=== PATIENT | female | born 2000 | race Caucasian/White ===

== ENCOUNTER 2024-09-29 09:09 | Outpatient (CLI) | payer OTHER, SELFPAY ==
[2024-09-29 10:07] LABS: Beta HCG Quantitative 83.46 mIU/ML
== END 2024-09-29 09:10 | disposition home or self-care (01) ==
LOC: ANHLAB 09:11
PROVIDERS: PCP Nurse Practitioner Family; Visit Provider Student in an Organized Health Care Education/Training Program
DX: N91.2 Amenorrhea, unspecified (principal)
CPT/HCPCS: 36415; 84702

== ENCOUNTER 2024-10-04 07:18 | Outpatient (CLI) | payer OTHER, SELFPAY ==
--- NOTE | ~2024-10-04 | US_ITS ---
EXAM: PELVIC ULTRASOUND HISTORY: Z98.890 - Other specified postprocedural states COMPARISON: None FINDINGS: UTERUS: 8.2 x 3.9 x 6.6 cm. The uterus is anteverted and anteflexed. The endometrial complex measures 7 mm. To the right of midline the endometrial complex appears hypoechoic and avascular. RIGHT OVARY: The right ovary is unremarkable in echogenicity and size measuring 5.6 x 5.7 x 5.3 cm. Arterial and venous flow are identified. A single anechoic avascular focus is identified distending the right ovary measuring 5.0 x 5.2 x 4.6 cm, representing a simple cyst without morphologically suspicious findings. Trace surrounding free fluid within the right adnexa is noted. LEFT OVARY: Despite prolonged interrogation, the left ovary was not visualized. No free fluid is identified within the posterior cul-de-sac. IMPRESSION: Avascular irregular area of decreased echogenicity is identified to the right of midline within the e ndometrial complex. Simple cyst within the right ovary measuring 5.2 cm in greatest dimension for which follow-up as deta iled below is suggested. SRU consensus guidelines (Radiology 2019; 293; 359 - 371) suggest follow-up of cysts this size (betwe en 5 and 7 cm) is recommended to assess growth within 6-12 months. If this cyst is smaller and still simple at 6-12 months, continued follow-up is unlikely to be of value. Reviewed, dictated and finalized at location A. LINE WORKER IMPRESSION: Avascular irregular area of decreased echogenicity is identified to the right o f midline within the endometrial complex. Simple cyst within the right ovary measuring 5.2 cm in greatest dimension for w hich follow-up as detailed below is suggested. SRU consensus guidelines (Radiology 2019; 293; 359 - 371) suggest follow-up of cysts this size (between 5 and 7 cm) is recommended to assess growth within 6-1 2 months. If this cyst is smaller and still simple at 6-12 months, continued follow-up is unlikely to be of value.
== END 2024-10-04 07:19 | disposition home or self-care (01) ==
LOC: MICIMG 07:19
PROVIDERS: PCP Student in an Organized Health Care Education/Training Program; Visit Provider Student in an Organized Health Care Education/Training Program
DX: Z98.890 Other specified postprocedural states (principal); N83.201 Unspecified ovarian cyst, right side
CPT/HCPCS: 76830; 76856

== ENCOUNTER 2024-10-07 11:12 | Outpatient (CLI) | payer OTHER, SELFPAY ==
[2024-10-07 11:28] LABS: Hematocrit 42.8 % (37.0-47.0); Hemoglobin 14.9 g/dL (12.0-15.0)
[2024-10-07 12:06] LABS: Beta HCG Quantitative 24.38 mIU/ML
--- OUTSIDE RECORDS SUMMARY | 2024-10-14 11:31 | XMS_ITS | Encounter Summary ---
Author Organization [facility] Address [address] [place] [address]. [place], [place] [address] [place] [address] Care Team Providers Care Narcotics Agent Name Role Phone Magaly Ribeiro MICROBIOLOGY SOIL SCIENTIST Primary Care Provider [phone] Reason for Referral * Imaging (Urgent) - New Request Specialty Diagnoses / Procedures Referred By Giovanni echavarria Referred To Contact RADIOLOGY Procedures US GD INTRAOPERATIVE Neelima Fox MD [address] [place] [address] Phone: tel: fax: Referral ID Status Reason Start Date Expiration Date V isits Requested Visits Authorized [id number] New Request 09/12/2024 09/12/2025 1 1 CTOR MBA Reason for Visit * Auth/Cert (Routine) Specialty Diagnoses / Procedures Referred By Giovanni echavarria Referred To Contact Diagnoses O02.1 Procedures Suction Dilatation and Curettage; Transvaginal Ultrasound Neelima Fox MD [address] [place] [address] Phone: tel: fax: Referral ID Status Reason Start Date Expiration Date Visits Re quested Visits Authorized [id number] 1 1 Encounter Details Date Type Department Care Team (Latest Contact Info) Description 09/12/2024 9:58 AM DIRECTOR MBA - 09/12/2024 12:50 PM DIRECTOR MBA Hospital Encounter [facility] [address] [place] [address] Neelima Fox MD [address] [place] [address] Discharge Disposition: Home or Self Care (Routine Discharge) Social History Tobacco Use Types Packs/Day Years Used Date Smoking Tobacco: Never Smokeless Tobacco: Never Alcohol Use Standard Drinks/Week Comments Yes 0 (1 standard drink = 0.6 oz pur e alcohol) Comments No Sex and Gender Information Value Date Recorded Sex Assigned at Not on file Legal Sex Female 7:04 PM CDT Gender Identity Not on file Sexual Orientation Not on file documented as of this encounter Last Filed Vital Signs Vital Sign Reading Time Taken Comments Blood Pressure 117/79 09/12/2024 12:00 PM DIRECTOR MBA Pulse 100 09/12/2024 12:05 PM DIRECTOR MBA Temperature 36.3 ??C (97.4 ??F) 09/12/2024 11:[address] Respiratory Rate 16 09/12/2024 12:05 PM DIRECTOR MBA Oxygen Saturation 100% 09/12/2024 12:05 PM DIRECTOR MBA Inhaled Oxygen Concentration - - Weight 74.4 kg (164 lb) 09/12/2024 10:14 AM DIRECTOR MBA Height 177.8 cm (5' 10 ) 09/12/2024 10:14 AM DIRECTOR MBA Body Mass Index 23.53 09/12/2024 10:14 AM DIRECTOR MBA documented in this encounter Discharge Instructions * Attachments The following attachments cannot be sent through Care Everywhere. * Miscarriage Discharge Instructions (Iranian) * Moderate Sedation in Adults Discharge Instructions (Iranian) documented in this encounter Medications at Time of Discharge ciprofloxacin (CILOXAN) 0.3 % ophthalmic solutionIndications :Conjunctivitis of left eye, unspecified conjunctivitis type Administer 1 drop, every 2 hours, while awake, for 2 days. Then 1 drop, every 4 hours, while awake, for the next 5 days. 5 mL 11/02/2023 FAMOTIDINE 20 MG tabletIndications:E pigastric pain TAKE 1 TABLET BY MOUTH TWICE A DAY 180 tablet 05/02/2021 levonorgestrel-ethi nyl estradiol (SEASONALE) 0.15-0.03 MG tablet Take 1 tablet by mouth daily. 05/14/2023 methylPREDNISolone, KM, (MEDROL DOSEPAK) 4 MG tabletIndications:B acterial URI 6 TABLETS ON DAY ONE, 5 TABLETS DAY TWO, 4 TABLETS DAY THREE, 3 TABLETS DAY FOUR, 2 TABLETS DAY FIVE, AND 1 TABLET DAY SIX 1 each 11/02/2023 documented as of this encounter H&P Notes * Neelima Fox MD - 09/12/2024 10:48 AM CST See soga paper HNP -bmg CTOR MBA documented in this encounter OR Notes * Op Note - Neelima Fox MD - 09/12/2024 11:30 AM CST Procedure Note Evelyn Billings Cecille 09/12/2024 Procedure: suction curettage and TVUS for missed . Pre-Op Diagnosis: missed . Post-Op Diagnosis: same Findings: empty uterus on postop TVUS, see photo, ems <4mm Specimen(s) Removed: intrauterine contents Anesthesia: Don, mac Surgeon: michel Digital Media Associate: x Estimated Blood Loss: <30cc Timeouts Jamaica Arredondo RN at SunSep 12, 2024 1112 DIRECTOR MBA Timeout Details Timeout type: Pre-incision Signing History Staff Performed Signed [place] Arredondo RN SunSep 12, 2024 1112 DIRECTOR MBA SunSep 12, 2024 1112 DIRECTOR MBA NEELIMA FOX MD Date: 09/12/2024 Time: 11:30 AM After informed consent was obtained, patient was taken to the operating room. Anesthesia was found to be adequate. She was prepped and draped in the normal sterile fashion in the dorsal lithotomy w candycanes. Speculum to vagina, iodine prep, tenac ant cervix, local at 12 4 and 8oclock, gentle hanks dilation. 8 curved curette to fundus without difficulty and large amt tissue removed, TVUS w assist of hospital tech revealed empty uterus ems <4mm. Tenac removed, sites hemostatic w pressure andAgNO3. Counts correct w team and pt robert procedure well. I dw postop -bmg CTOR MBA documented in this encounter Plan of Treatment Pending Results Name Type Priority Associated Diagnoses Date /Time US GD INTRAOPERATIVE Ultrasound Today 08/31 11:37 AM DIRECTOR MBA Scheduled Orders Name Type Priority Associated Diagnoses Orde r Schedule US GD INTRAOPERATIVE Ultrasound Today One time imaging One time imaging for 1 Occurrences starting 09/12/2024 until 09/12/2024 documented as of this encounter Procedures Procedure Name Priority Date/Time Associated Diagnosis Comments DILATATION & CURETTAGE SUCTION 09/12/2024 10:49 AM DIRECTOR MBA O02.1 Case Notes Needs transvaginal ultrasound.Radiology notified. Eloina will call back when she knows if they have a tech. -SRC 09/10 1438Spoke to Arianna with US and she says 1030 will probably work if they can move another patient's time. -SRC 09/10 1500Spoke with Mara in Radiology. Mara said they could have the ultrasound ready around 11-CD 09/11 1000. PATHOLOGY Routine 09/12/2024 12:00 AM DIRECTOR MBA documented in this encounter Results * Pathology (09/12/2024 12:00 AM DIRECTOR MBA) PATHOLOGY [facility] ? Department of Laboratory Medicine ?[address] ?[place] [address] ? , extension [phone] ? Pathology Report ? Surgical Pathology Report Name: EVELYN SMITH ? Specimen #: [id number] Age: 11 2000 (Age: 24) ?Location: [facility] Sex: F ?Procedure Date: 09/12/2024 Hospital #: [id number] ?Date Received: 09/15/2024 Date Reported: 09/16/2024 Provider: NEELIMA FOX MD Source: Products of conception Clinical History: O02.1. FINAL DIAGNOSIS: Proximal conception, dilatation curettage: ? -Chorionic villi identified. Gross Description: Received in formalin, labeled with a patient label and as uterine contents, are multiple friable, soft to rubbery, focally membranous, altman to red-pink tissue fragments that aggregate 5.0 x 4.0 x 1.8 cm. ?? parts are not identified. ??Manufacturing Recruiter sections are submitted in cassette 1. Please note: The remaining specimen is returned to the collecting facility following microscopic examination. Gross examination (when applicable), interpretation, and sign out were performed at [facility], [address] [place] [address]. ?? Electronically Signed Out ? NASRIN JENKINS MD [facility] TISSUE (OTHER (type in comments)) 09/12/2024 11:22 AM DIRECTOR MBA us Neelima Fox MD PATHOLOGY/CYTOLOGY ORDERABLES Final Result [facility] [address] [place] [address], [place] [phone] [id number] documented in this encounter Visit Diagnoses Not on filedocumented in this encounter Administered Medications Inactive Administered Medications - up to 3 most recent administrations Medication Order MAR Action Action Date Dose Rate Site doxycycline hyclate (VIBRA-TABS) tablet 100 mg 100 mg, Oral, Once, 1 dose, On Sun09/12/24 at 1030 Given 09/12/2024 10:29 AM DIRECTOR MBA 100 mg famotidine (PF) (PEPCID) injection 20 mg 20 mg, Intravenous, Once, 1 dose, On Sun09/12/24 at 1045, On admission IV Push over 2 minutes, Pre-Op Given 09/12/2024 10:29 AM DIRECTOR MBA 20 mg ondansetron (ZOFRAN) injection 4 mg 4 mg, Intravenous, Once, 1 dose, On Sun09/12/24 at 1030, On admission, Pre-Op Given 09/12/2024 10:29 AM DIRECTOR MBA 4 mg oxyCODONE-acetaminophen (PERCOCET) 5-325 MG tablet 1 tablet 1 tablet, Oral, Once as needed, Mild pain (Scale 1 - 3), 1 dose, Starting on Sun09/12/24 at 1148, Until Sun09/12/24 at 1203, Do not administer if patient is overly sedated, SpO2 LESS than 90%, or Respiratory Rate LESS than 12., PACU Given 09/12/2024 12:03 PM DIRECTOR MBA 1 tablet sodium chloride 0.9% infusion at 10 mL/hr, Intravenous, Continuous, Starting on Sun09/12/24 at 1030, Until Sun09/12/24 at 1505, Infuse at TKO rate. Use mini-drip tubing for ESRD patients., Pre-Op Continued by Anesthesia 09/12/2024 10:52 AM DIRECTOR MBA 10 mL/hr New Bag 09/12/2024 10:29 AM DIRECTOR MBA 10 mL/hr documented in this encounter Active and Recently Administered Medications Times are shown in DIRECTOR MBA. Scheduled Medication Order 09/10/2024 09/11/2024 09/12/2024 doxycycline hyclate (VIBRA-TABS) tablet 100 mg (COMPLETED) 100 mg, Oral, Once, 1 dose, On Sun09/12/24 at 1030 1029 (Given - Provid er: Keila Bradley RN) doxycycline hyclate (VIBRA-TABS) tablet 200 mg 200 mg, Oral, Once, 1 dose, On Sun09/12/24 at 1145 1145 (Canceled Entry - Provider: Automatic Discharge Provider - Comment: Automatically canceled at discontinue of medication order) famotidine (PF) (PEPCID) injection 20 mg (COMPLETED) 20 mg, Intravenous, Once, 1 dose, On Sun09/12/24 at 1045, On admission IV Push over 2 minutes, Pre-Op 1029 (Given - Provid er: Keila Bradley RN) ondansetron (ZOFRAN) injection 4 mg (COMPLETED) 4 mg, Intravenous, Once, 1 dose, On Sun09/12/24 at 1030, On admission, Pre-Op 1029 (Given - Provid er: Keila Bradley RN) Continuous Medication Order 09/10/2024 09/11/2024 09/12/2024 sodium chloride 0.9% infusion at 10 mL/hr, Intravenous, Continuous, Starting on Sun09/12/24 at 1030, Until Sun09/12/24 at 1505, Infuse at TKO rate. Use mini-drip tubing for ESRD patients., Pre-Op 1029 (New Bag - Prov ider: Keila Bradley RN)1052 (Continued by Anesthesia - Provider: Karri Grande CRNA)1130 (Anesthesia Volume Adjustment - Provider: Karri Grande CRNA)1230 (Infusion Stop Time - Provider: Keila Bradley, LEW) PRN Medication Order 09/10/2024 09/11/2024 09/12/2024 lidocaine-EPINEPHrine 1 %-1:[id number] injection (CANCELED) As needed, Starting on Sun09/12/24 at 1128, Until Sun09/12/24 at 1134, Intra-Op 1128 (Given - Provid er: Neelima Fox MD) oxyCODONE-acetaminophen (PERCOCET) 5-325 MG tablet 1 tablet (COMPLETED) 1 tablet, Oral, Once as needed, Mild pain (Scale 1 - 3), 1 dose, Starting on Sun09/12/24 at 1148, Until Sun09/12/24 at 1203, Do not administer if patient is overly sedated, SpO2 LESS than 90%, or Respiratory Rate LESS than 12., PACU 1203 (Given - Provid er: [place] Arredondo RN) silver-potassium nitrate applicator (CANCELED) As needed, Starting on Sun09/12/24 at 1130, Until Sun09/12/24 at 1134, Intra-Op 1130 (Given - Provid er: Neelima Fox MD) documented in this encounter Care Teams Narcotics Agent Relationship Specialty Start Date End Date Magaly Ribeiro FNP [address] [place] [address] [place] [address] PCP - General Nurse Practitioner Family 05/09/16 documented as of this encounter
--- OUTSIDE RECORDS SUMMARY | 2024-10-14 11:31 | XMS_ITS | Encounter Summary ---
Author Organization [facility] Address [address] [place] [address]. [place] [address] [place] [address] Care Team Providers Care Coffee Shop Attendant Name Role Phone Magaly Ribeiro [facility] Primary Care Provider [phone] Encounter Details Date Type Department Care Team (Late st Contact Info) Description 09/04/2024 Orders Only [facility] [address] [place] [address] Giuliana Madden, [facility] [address] [place] [address] Social History Tobacco Use Types Packs/Day Years [...] on file documented as of this encounter Plan of Treatment Not on file documented as of this encounter Results * PROGESTERONE (09/04/2024 3:40 PM WAREHOUSE SORTER) PROGESTERONE 12.8 see note ng/mL 09/10/2024 12:22 PM WAREHOUSE SORTER [facility] MARIA ISABEL DIAS Comment: Unable to flag abnormal result(s), please refer ?? to reference range(s) below: ?? Female: ?? Follicular Phase ?<1.0 ng/mL ?? Luteal Phase ?2.6 - 21.5 ng/mL ?? Post Menopausal ? <0.5 ng/mL ?? : ?? 1st Trimester ? 4.1 - 34.0 ng/mL ?? 2nd Trimester ?24.0 - 76.0 ng/mL ?? 3rd Trimester ?52.0 -302.0 ng/mL Test Performed by Abhilash Akhtar, VB Rags [facility], [address] [place], [place] Arnold Hercules M.D., Ph.D., Director of Laboratories , [facility] [id number] 09/04/2024 3:40 PM WAREHOUSE SORTER Giuliana Madden [facility] Final Result Performing Organization Address City/State/[facility] Co de Phone Number [facility] [address] [place], [place] , * HCG QUANT (SERUM)-CHORIONIC GONADOTROPIN (09/04/2024 3:40 PM WAREHOUSE SORTER) [facility] HCG QUANTITATIVE [phone] MIU/ML 09/04/20 5:31 PM WAREHOUSE SORTER [facility] Comment: WEEKS OF ? REFERENCE RANGES NON- FEMALE ?0-6 ? 0.2 - 1 ? 5 - 50 ? 1 - 2 ? 50 - 500 ? 2 - 3 ? 100 - 5000 ? 3 - 4 ? 500 - 10,000 ? 4 - 5 ? 1000 - 50,000 ? 5 - 6 ? 10,000 - 100,000 ? 6 - 8 ? 15,000 - 200,000 ? 2 - 3 MONTHS ?10,000 - 100,000 09/04/2024 3:40 PM WAREHOUSE SORTER Giuliana [facility] Final Result [facility] [address] [place] [address], documented in this encounter Visit Diagnoses Diagnosis Threatened ([facility])- Primary Threatened , unspecified as to episode of care documented in this encounter Care Teams Coffee Shop Attendant Relationship Specialty Start Date End Date Magaly Ribeiro FNP [address] [place] [address] [place] [address] PCP - General Nurse Practitioner Family 05/09/16 documented as of this encounter
--- OUTSIDE RECORDS SUMMARY | 2024-10-14 11:31 | XMS_ITS | Encounter Summary ---
Author Organization [facility] Address [address] [place] [address]. [place] [address] [place] [address] Care Team Providers Care Cooker Sulfate Name Role Phone Magaly Ribeiro CABLE TELEVISION INSTALLER Primary Care Provider [phone] Reason for Visit * Auth/Cert (Routine) Specialty Diagnoses / Procedures Referred By Giovanni t Referred To Contact Diagnoses O02.1 Procedures Suction Dilatation and Curettage; Transvaginal Ultrasound Neelima Fox MD [address] [place] [address] Phone: tel: fax: Referral ID Status Reason Start Date Expiration Date Visits Re quested Visits Authorized [id number] 1 1 Encounter Details Date Type Department Care Team (Late st Contact Info) Description 09/12/2024 10:45 AM EMAIL MARKETING ASSISTANT - 09/12/2024 11:23 AM EMAIL MARKETING ASSISTANT Surgery [facility] [address] [place] [address] Neelima Fox MD [address] [place] [address] Suction Dilatation and Curettage; Transvaginal Ultrasound Surgery Details Date/Time Status Location OR Service Patient Class Case Class Case Type Trauma Case? 09/12/2024 10:45 AM Posted [facility] OR OR 1 Gynecology Short Stay/Outpati ent Surgery No Panel 1 Procedure LRB Anes Op Region Wound Class Comments Suction Dilatation and Curet tage; Transvaginal Ultrasound N/A Choice Uterus Clean Contaminate d Surgeon Surgeon Role Service Panel Neelima Fox MD Primary Gynecology 1 Case Notes Needs transvaginal ultrasound.Radiology notified. Eloina will call back when she knows if they have a tech. -[facility] 09/10 1438Spoke to Arianna with US and she says 1030 will probably work if they can move another patient's time. -[facility] 09/10 1500Spoke with Mara in Radiology. Mara said they could have the ultrasound ready around 11-CD 09/11 1000. documented in this encounter Social History Tobacco Use Types Packs/Day Years [...] Sign Reading Time Taken Comments Blood Pressure 135/98 09/12/2024 10:14 AM EMAIL MARKETING ASSISTANT Pulse 100 09/12/2024 10:14 AM EMAIL MARKETING ASSISTANT Temperature 36.7 ??C (98.1 ??F) 09/12/2024 10:[address] Respiratory Rate 16 09/12/2024 10:14 AM EMAIL MARKETING ASSISTANT Oxygen Saturation 100% 09/12/2024 10:14 AM EMAIL MARKETING ASSISTANT Inhaled Oxygen Concentration - - Weight 74.4 kg (164 lb) 09/12/2024 10:14 AM EMAIL MARKETING ASSISTANT Height 177.8 cm (5' 10 ) 09/12/2024 10:14 AM EMAIL MARKETING ASSISTANT Body Mass Index 23.53 09/12/2024 10:14 AM EMAIL MARKETING ASSISTANT documented in this encounter Discharge Instructions * Attachments The following attachments cannot be sent through Care Everywhere. * Miscarriage Discharge Instructions (Colombian) * Moderate Sedation in Adults Discharge Instructions (Colombian) documented in this encounter Medications at Time [...] AM CST See soga paper HNP -bmg L MARKETING ASSISTANT documented in this encounter OR Notes * Op Note - Neelima Fox MD - 09/12/2024 11:30 AM CST Procedure Note Evelyn Billings Cecille 09/12/2024 Procedure: suction curettage and TVUS for missed . Pre-Op Diagnosis: missed . Post-Op Diagnosis: same Findings: empty uterus on postop TVUS, see photo, ems <4mm Specimen(s) Removed: intrauterine contents Anesthesia: Don, mac Surgeon: michel Funeral Director'S Assistant: x Estimated Blood Loss: <30cc Timeouts Jamaica Arredondo RN at SunSep 12, 2024 1112 EMAIL MARKETING ASSISTANT Timeout Details Timeout type: Pre-incision Signing History Staff Performed Signed Jamaica Arredondo RN SunSep 12, 2024 1112 EMAIL MARKETING ASSISTANT SunSep 12, 2024 1112 EMAIL MARKETING ASSISTANT NEELIMA FOX MD Date: 09/12/2024 Time: 11:30 [...] and large amt tissue removed, TVUS w [facility] tech revealed empty uterus ems <4mm. Tenac removed, sites hemostatic w pressure andAgNO3. Counts correct w team and pt robert procedure well. I dw postop -bmg L MARKETING ASSISTANT documented in this encounter Plan of Treatment Pending Results Name Type Priority Associated Diagnoses Date /Time US GD INTRAOPERATIVE Ultrasound Today 08/31 11:37 AM EMAIL MARKETING ASSISTANT Scheduled Orders Name Type Priority Associated Diagnoses Orde r Schedule US GD INTRAOPERATIVE Ultrasound Today One time imaging One time imaging for 1 Occurrences starting 09/12/2024 until 09/12/2024 documented as of this encounter Procedures Procedure Name Priority Date/Time Associated Diagnosis Comments DILATATION & CURETTAGE SUCTION 09/12/2024 10:49 AM EMAIL MARKETING ASSISTANT O02.1 Case Notes Needs transvaginal ultrasound.Radiology notified. Eloina will call back when she knows if they have a tech. -[facility] 09/10 1438Spoke to Arianna with US and she says 1030 will probably work if they can move another patient's time. -[facility] 09/10 1500Spoke with Mara in Radiology. Mara said they could have the ultrasound ready around -CD 09/11 1000. PATHOLOGY Routine 09/12/2024 12:00 AM EMAIL MARKETING ASSISTANT documented in this encounter Results * Pathology (09/12/2024 12:00 AM EMAIL MARKETING ASSISTANT) PATHOLOGY [facility] ? Department of Laboratory Medicine ?[address] ?[place] [address] ? , extension [phone] ? Pathology Report ? Surgical Pathology Report Name: EVELYN SMITH ? Specimen #: [id number] Age: 11 2000 (Age: 24) ?Location: [facility] Sex: F ?Procedure Date: 09/12/2024 Hospital #: [id number] ?Date Received: 09/15/2024 Date Reported: 09/16/2024 Provider: [...] 1.8 cm. ?? parts are not identified. ??Artillery Specialist sections are submitted in cassette 1. Please note: The remaining specimen is returned to the collecting facility following microscopic examination. Gross examination (when applicable), interpretation, and sign out were performed at [facility], [address] [place], [place] [id number]. ?? Electronically Signed Out ? NASRIN JENKINS MD [facility] TISSUE (OTHER (type in comments)) 09/12/2024 11:22 AM EMAIL MARKETING ASSISTANT us Neelima Fox MD PATHOLOGY/CYTOLOGY ORDERABLES Final Result [facility] [address] [place] [address], [place] [phone] [id number] documented in this encounter Visit Diagnoses Not on filedocumented in this encounter Administered Medications Inactive Administered Medications - up to 3 most recent administrations Medication Order MAR Action Action Date Dose Rate Site doxycycline hyclate (VIBRA-TABS) tablet 100 mg 100 mg, Oral, Once, 1 dose, On Sun09/12/24 at 1030 Given 09/12/2024 10:29 AM EMAIL MARKETING ASSISTANT 100 mg famotidine (PF) (PEPCID) injection 20 mg 20 mg, Intravenous, Once, 1 dose, On Sun09/12/24 at 1045, On admission IV Push over 2 minutes, Pre-Op Given 09/12/2024 10:29 AM EMAIL MARKETING ASSISTANT 20 mg lidocaine-EPINEPHr ine 1 %-1:[id number] injection As needed, Starting on Sun09/12/24 at 1128, Until Sun09/12/24 at 1134, Intra-Op Given 09/12/2024 11:28 AM EMAIL MARKETING ASSISTANT 10 mLs Operative Site ondansetron (ZOFRAN) injection 4 mg 4 mg, Intravenous, Once, 1 dose, On Sun09/12/24 at 1030, On admission, Pre-Op Given 09/12/2024 10:29 AM EMAIL MARKETING ASSISTANT 4 mg oxyCODONE-acetamin ophen (PERCOCET) 5-325 MG tablet 1 tablet 1 tablet, Oral, Once as needed, Mild pain (Scale 1 - 3), 1 dose, Starting on Sun09/12/24 at 1148, Until Sun09/12/24 at 1203, Do not administer if patient is overly sedated, SpO2 LESS than 90%, or Respiratory Rate LESS than 12., PACU Given 09/12/2024 12:03 PM EMAIL MARKETING ASSISTANT 1 tablet silver-potassium nitrate applicator As needed, Starting on Sun09/12/24 at 1130, Until Sun09/12/24 at 1134, Intra-Op Given 09/12/2024 11:30 AM EMAIL MARKETING ASSISTANT 1 applicator sodium chloride 0.9% infusion at 10 mL/hr, Intravenous, Continuous, Starting on Sun09/12/24 at 1030, Until Sun09/12/24 at 1505, Infuse at TKO rate. Use mini-drip tubing for ESRD patients., Pre-Op Continued by Anesthesia 09/12/2024 10:52 AM EMAIL MARKETING ASSISTANT 10 mL/hr New Bag 09/12/2024 10:29 AM EMAIL MARKETING ASSISTANT 10 mL/hr documented in this encounter Active and Recently Administered Medications Times are shown in EMAIL MARKETING ASSISTANT. Scheduled Medication Order 09/10/2024 09/11/2024 09/12/2024 doxycycline [...] Medication Order 09/10/2024 09/11/2024 09/12/2024 lidocaine-EPINEPHrine 1 %-[id number] injection (CANCELED) As needed, Starting on Sun09/12/24 [...] MD) documented in this encounter Care Teams Cooker Sulfate Relationship Specialty Start Date End Date Magaly Ribeiro FNP [address] [place] [address] [place] [address] PCP - General Nurse Practitioner Family 05/09/16 documented as of this encounter
--- OUTSIDE RECORDS SUMMARY | 2024-10-14 11:31 | XMS_ITS | Encounter Summary ---
Author Organization [facility] Address [address] [place] [address]. [place] [address] [place] [address] Care Team Providers Care Dye Colorist Dyer Name Role Phone Magaly Ribeiro MANAGER PROGRAMS Primary Care Provider [phone] Reason for Visit * Auth/Cert (Routine) Specialty Diagnoses / Procedures Referred By Giovanni t Referred To Contact Diagnoses O02.1 Procedures Suction Dilatation and Curettage; Transvaginal Ultrasound Neelima Castrejon MD [address] [place] [address] Phone: tel: fax: Referral ID Status Reason Start Date Expiration Date Visits Re quested Visits Authorized [id number] 1 1 Encounter Details Date Type Department Care Team (Late st Contact Info) Description 09/12/2024 10:52 AM HAUL CANE BRAKEMAN Anesthesia Event [facility] [address] [place] [address] Karri Grande CRNA [address] [place] [address] Anesthesia Record Procedure Summary Procedure Name Responsible Anesthesiologist Anesthesia Start Time Anesthesia Stop Time Suction Dilatation and Curettage; Transvaginal Ultrasound (Uterus) Karri Grande CRNA 09/12/24 1052 09/12/24 1134 Events Date Time Event Comment 09/12/2024 1034 1034 AN Anesthesia Prepped 1052 An Start Patient ID and consent checked and patient reassessed. 1052 An Start Data 1052 AN Immediate Reassess The pa tient was reevaluated immediately before sedation or regional anesthesia. 1057 Face Mask Applied 1057 Anesthesia Ready 1134 An Stop 1134 an stop data 1134 Post Anesthetic Care Handoff I completed my handoff to the receiving nurse during which we: 1. Identified the patient 2. Identified the responsible provider 3. Reviewed the pertinent medical history 4. Discussed the surgical course 5. Reviewed intra-op anesthesia management and issues during anesthesia 6. Set expectations for post-procedure period 7. Allowed opportunity for questions and acknowledgement of understanding. Meds Name Total midazolam 2 mg/2 mL injection 2 mg dexmedetomidine (PRECEDEX) 100 mcg/mL in jection 20 mcg lidocaine (PF) (XYLOCAINE) 1% injection 50 mg propofol (DIPRIVAN) 200 mg/20 mL injecti on 801.46 mg ketorolac (TORADOL) 30 mg/mL injection 3 0 mg sodium chloride 0.9% infusion 800 mL * Agents Name O2 * Blood No blood administrations on file. Lines, Drains, and Airways Type Details Placement Removal Peripheral IV Placement Date: 08/31 12/22; Placement Time: 1029; Placed Outside of This Facility?: No; Size: 20 G; Orientation: Distal, Right; Location: Forearm; Site Prep: Chlorhexidine; Local Anesthetic: None; Inserted By: Harvinder; Insertion attempts: 1; Ultrasound-guided Placement?: No; Patient Tolerance: Tolerated well; Removal Date: 09/12/24; Removal Time: 1250; Removal Reason: Therapy Completed 09/12/24 1029 by Keila Bradley RN 09/12/24 1250 by Keila Bradley RN documented in this encounter Social History Tobacco [...] on file documented as of this encounter OR Notes * Anesthesia Postprocedure Evaluation - Karri Grande CRNA - 09/12/2024 11:34 AM CST Anesthesia Post-op Note Evelyn Oden Procedure(s): Suction Dilatation and Curettage; Transvaginal Ultrasound (Uterus) Anesthesia type: MAC Vitals: 09/12/24 1014 BP: (!) 135/98 Vitals: 09/12/24 1014 Pulse: 100 Vitals: 09/12/24 1014 Resp: 16 Vitals: 09/12/24 1014 Temp: 36.7 ??C Vitals: 09/12/24 1014 SpO2: 100% Patient Location: PACU Level of Consciousness: oriented, alert and awake Pain Management: adequate analgesia Airway Patency: patent Respiratory Status: acceptable Cardiovascular Status: acceptable Post-Op Nausea: none Postoperative Hydration: euvolemic There were no known notable events for this encounter. CANE BRAKEMAN * Anesthesia Preprocedure Evaluation - Karri Grande CRNA - 09/11/2024 8:23 AM CST Anesthesia ROS/MED History Reviewed: Patient summary , Nursing notes , Family history anesthesia, Anesthesia history , Medications , Labs Pre-Anesthetic State: awake and responds appropriately Pulmonary neg pulmonary ROS (-) recent URI Cardiovascular neg cardio ROS Neuro/Psych neg neuro/psych ROS Substance Use no history of substance abuse GI/Hepatic/Renal neg GI/hepatic/renal ROS Endo/Other neg endo/other ROS NPO Status: Physical Evaluation Airway Mallampati: I TM Distance: >3 FB Neck ROM: normal Dental No notable dental history Pulmonary Pulmonary exam normal Breath sounds clear to auscultation Cardiovascular Rhythm: regular Rate: normal Cardiovascular exam normal STOP-Bang Assessment: Do you snore loudly?: (Patient-Rptd) 0 Do you often feel tired or fatigued after your sleep?: (Patient-Rptd) 0 Has anyone ever observed you stop breathing in your sleep?: (Patient-Rptd) 0 Do you have or are you being treated for high blood pressure?: (Patient-Rptd) 0 Recent BMI (Calculated): (Patient-Rptd) 21.5 Is BMI greater than 35 kg/m2?: (Patient-Rptd) 0=No Age older than 50 years old?: (Patient-Rptd) 0=No Is your neck circumference greater than 17 inches (Male) or 16 inches (Female)?: (Patient-Rptd) 0 Gender - Male: (Patient-Rptd) 0=No STOP-Bang Total Score: (Patient-Rptd) 0 Anesthesia Plan ASA 1 Intravenous Induction Anesthesia type: MAC Plan for Airway: nasal cannula/simple face mask The patient is not a current smoker. Informed Consent Anesthetic plan and risks discussed with patient of whom consent was obtained. . CANE BRAKEMAN CANE BRAKEMAN CANE BRAKEMAN documented in this encounter Plan of Treatment Not on file documented as of this encounter Visit Diagnoses Not on filedocumented in this encounter Administered Medications Inactive Administered Medications - up to 3 most recent administrations Medication Order MAR Action Action Date Dose Rate Site dexmedetomidine (PRECEDEX) injection Intravenous, PRN, Starting on Sun09/12/24 at 1052, Until Sun09/12/24 at 1134, Anesthesia Intra-Op Given 09/12/2024 11:10 AM HAUL CANE BRAKEMAN 5 mcg Given 09/12/2024 11:01 AM HAUL CANE BRAKEMAN 5 mcg Given 09/12/2024 10:52 AM HAUL CANE BRAKEMAN 10 mcg ketorolac (TORADOL) injection Intravenous, PRN, Starting on Sun09/12/24 at 1124, Until Sun09/12/24 at 1134, Anesthesia Intra-Op Given 09/12/2024 11:24 AM HAUL CANE BRAKEMAN 30 mg lidocaine (PF) (XYLOCAINE) 1 % injection Intravenous, PRN, Starting on Sun09/12/24 at 1057, Until Sun09/12/24 at 1134, Anesthesia Intra-Op Given 09/12/2024 10:57 AM HAUL CANE BRAKEMAN 50 mg midazolam (VERSED) injection Intravenous, PRN, Starting on Sun09/12/24 at 1046, Until Sun09/12/24 at 1134, Anesthesia Intra-Op Given 09/12/2024 10:46 AM HAUL CANE BRAKEMAN 2 mg propofol (DIPRIVAN) IV bolus Intravenous, Continuous PRN, Starting on Sun09/12/24 at 1055, Until Sun09/12/24 at 1134, Anesthesia Intra-Op Given 09/12/2024 11:18 AM HAUL CANE BRAKEMAN 25 mg Given 09/12/2024 11:14 AM HAUL CANE BRAKEMAN 50 mg Given 09/12/2024 11:12 AM HAUL CANE BRAKEMAN 50 mg sodium chloride 0.9% infusion at 10 mL/hr, Intravenous, Continuous, Starting on Sun09/12/24 at 1030, Until Sun09/12/24 at 1505, Infuse at TKO rate. Use mini-drip tubing for ESRD patients., Pre-Op Continued by Anesthesia 09/12/2024 10:52 AM HAUL CANE BRAKEMAN 10 mL/hr New Bag 09/12/2024 10:29 AM HAUL CANE BRAKEMAN 10 mL/hr documented in this encounter Care Teams Dye Colorist Dyer Relationship Specialty Start Date End Date Magaly Ribeiro FNP [address] [place] [address] [place] [address] PCP - General Nurse Practitioner Family 05/09/16 documented as of this encounter
--- OUTSIDE RECORDS SUMMARY | 2024-10-14 11:31 | XMS_ITS | Encounter Summary ---
Author Organization [facility] Address [address] [place] [address]. [place], [place] [address] [place] [address] Care Team Providers Care Darkroom Technician Name Role Phone Magaly Ribeiro Primary Care Provider [phone] Encounter Details Date Type Department Care Team (Latest Contact Info) Description 09/10/2024 Travel Social History Tobacco Use Types Packs/Day Years [...] Diagnoses Not on filedocumented in this encounter Care Teams Darkroom Technician Relationship Specialty Start Date End Date Magaly Ribeiro FNP [address] [place] [address] [place] [address] PCP - General Nurse Practitioner Family 05/09/16 documented as of this encounter
--- OUTSIDE RECORDS SUMMARY | 2024-10-14 11:31 | XMS_ITS | Encounter Summary ---
Author Organization [facility] Address [address] [place] [address]. [place], [place] [address] [place] [address] Care Team Providers Care [facility] Name Role Phone Magaly Ribeiro Primary Care Provider [phone] Encounter Details Date Type Department Care Team (Latest Contact Info) Description 09/04/2024 Travel Social History Tobacco Use Types Packs/Day [...] on filedocumented in this encounter Care Teams [facility] Relationship Specialty Start Date End Date Magaly Ribeiro FNP [address] [place] [address] [place] [address] PCP - General Nurse Practitioner Family 05/09/16 documented as of this encounter
--- OUTSIDE RECORDS SUMMARY | 2024-10-14 11:31 | XMS_ITS | Encounter Summary ---
Author Organization [facility] Address [address] [place] [address]. [place], [place] [address] [place] [address] Care Team Providers Care Commercial Lines Insurance Agent Name Role Phone Magaly Ribeiro Primary Care Provider [phone] Encounter Details Date Type Department Care Team (Latest Contact Info) Description 09/12/2024 Travel Social History Tobacco Use Types Packs/Day [...] on filedocumented in this encounter Care Teams Commercial Lines Insurance Agent Relationship Specialty Start Date End Date Magaly Ribeiro FNP [address] [place] [address] [place] [address] PCP - General Nurse Practitioner Family 05/09/16 documented as of this encounter
--- OUTSIDE RECORDS SUMMARY | 2024-10-14 11:31 | XMS_ITS | Encounter Summary ---
Author Organization [facility] Address [address] [place] [address]. [place] [address] [place] [address] Care Team Providers Care Safety And Occupational Health Manager Name Role Phone Magaly Ribeiro FARMER DIVERSIFIED CROPS Primary Care Provider [phone] Encounter Details Date Type Department Care Team (Latest Contact Info) Description 09/15/2024 10:44 AM [facility] - 09/15/2024 11:59 PM [facility] Hospital Encounter [facility] [address] [place] [address] Neelima Castrejon MD [address] [place] [address] Discharge Disposition: Home or Self Care (Routine [...] on file documented as of this encounter Medications at Time of Discharge [...] each 11/02/2023 documented as of this encounter Plan of Treatment Not on file documented as of this encounter Procedures Procedure Name Priority Date/Time Associated Diagnosis Comments COMPREHENSIVE METABOLIC PANEL STAT 09/15/2024 10:55 AM ULTRASONIC TESTER Uterine bleeding CBC W/DIFF AUTOMATED STAT 09/15/2024 10:55 AM ULTRASONIC TESTER Uterine bleeding documented in this encounter Results * (ABNORMAL) COMPREHENSIVE METABOLIC PANEL (09/15/2024 10:55 AM ULTRASONIC TESTER) GLUCOSE 105(H) 70 - 99 MG/DL 09/15/2024 11:14 AM [facility] BUN 5(L) 7 - 18 MG/DL 09/15/2024 11:14 AM [facility] CREATININE S/P/B 0.76 0.55 - 1.02 MG/DL 09/15/2024 11:14 AM [facility] SODIUM S/P/B 142 136 - 145 MMOL/L 09/15/2024 11:14 AM [facility] POTASSIUM S/P/B 3.9 3.5 - 5.1 MMOL/L 09/15/2024 11:14 AM [facility] CHLORIDE S/P/B 107 100 - 108 MMOL/L 09/15/2024 11:14 AM [facility] CO2 27.3 21 - 32 MMOL/L 09/15/2024 11:14 AM [facility] CALCIUM S/P/B 8.9 8.5 - 10.1 MG/DL 09/15/2024 11:14 AM [facility] BILIRUBIN TOTAL S/P/B 1.2 0.2 - 1.2 MG/DL 09/15/2024 11:14 AM [facility] TOTAL PROTEIN S/P/B 7.0 6.4 - 8.2 G/DL 09/15/2024 11:14 AM [facility] ALBUMIN S/P/B 3.6 3.4 - 5.0 G/DL 09/15/2024 11:14 AM [facility] AST 74(H) 15 - 37 U/L 09/15/2024 11:14 AM [facility] ALT 118(H) 14 - 55 U/L 09/15/2024 11:14 AM [facility] ALKALINE PHOSPHATASE S/P/B 84 50 - 136 U/L 09/15/2024 11:14 AM [facility] ANION GAP 7.7 5 - 15 MMOL/L 09/15/2024 11:14 AM [facility] BUN CREATININE RATIO 6.6 6 - 26 09/15/2024 11:14 AM [facility] A/G RATIO 1.1 1.0 - 2.0 RATIO 09/15/2024 11:14 AM [facility] GFR ESTIMATE >90 >90 ML/MIN/1.7 3 M2 09/15/2024 11:14 AM [facility] Comment: NOTE: eGFR is not calculated for patients <18 years of age. This is an estimated GFR calculation using the new CKD EPI creatinine equation without race and so does not require a correction factor for race. This estimated GFR should not be used for calculating drug doses. 09/15/2024 10:5 5 AM ULTRASONIC TESTER us Neelima Castrejon MD LABORATORY Final Result [facility] [address] [place] [address], [place] [phone] * (ABNORMAL) CBC W/DIFF AUTOMATED (09/15/2024 10:55 AM ULTRASONIC TESTER) WBC 5.95 4.4 - 11.0 x10'3/uL 09/15/2024 11:00 AM [facility] RBC 4.19(L) 4.50 - 5.10 x10'6/uL 09/15/2024 11:00 AM [facility] HGB 12.4 12.3 - 15.3 G/DL 09/15/2024 11:00 AM [facility] HCT 36.5 35.9 - 44.6 % 09/15/2024 11:00 AM [facility] MCV 87.1 80.0 - 96.0 FL 09/15/2024 11:00 AM [facility] MCH 29.6 25.3 - 30.9 PG 09/15/2024 11:00 AM [facility] MCHC 34.0 31.0 - 34.1 G/DL 09/15/2024 11:00 AM [facility] RDW 13.0 12.4 - 15.1 % 09/15/2024 11:00 AM [facility] PLT 178 151 - 353 x10'3/uL 09/15/2024 11:00 AM [facility] MPV 10.5 9.6 - 12.0 FL 09/15/2024 11:00 AM [facility] RBC MORPHOLOGY NORMAL 09/15/2024 11:00 AM [facility] PLT MORPH. NORMAL 09/15/2024 11:00 AM [facility] WBC MORPHOLOGY NORMAL 09/15/2024 11:00 AM [facility] LYMPHOCYTES % 19.5 15.8 - 45.0 % 09/15/2024 11:00 AM [facility] NEUTROPHILS % 70.6 42.1 - 71.9 % 09/15/2024 11:00 AM [facility] MONOCYTES % 7.6 5.7 - 12.5 % 09/15/2024 11:00 AM [facility] EOSINOPHILS 1.3 0.0 - 5.6 % 09/15/2024 11:00 AM [facility] BASOPHILS 0.8 0.0 - 1.3 % 09/15/2024 11:00 AM [facility] ABS. NEUTROPHILS 4.20 1.40 - 6.00 x10'3/uL 09/15/2024 11:00 AM [facility] IMMATURE GRANS % 0.2 0.0 - 0.5 % 09/15/2024 11:00 AM [facility] ABS. LYMPHOCYTES 1.16 0.80 - 4.70 x10'3/uL 09/15/2024 11:00 AM [facility] 09/15/2024 10:5 5 AM ULTRASONIC TESTER us Neelima Castrejon MD LABORATORY Final Result [facility] [address] [place] [address], [place] [phone] documented in this encounter Visit Diagnoses Diagnosis Uterine bleeding Unspecified disorder of menstruation and other abnormal bleeding from female genital tract documented in this encounter Care Teams Safety And Occupational Health Manager Relationship Specialty Start Date End Date Magaly Ribeiro FNP [address] [place] [address] [place] [address] PCP - General Nurse Practitioner Family 05/09/16 documented as of this encounter
--- OUTSIDE RECORDS SUMMARY | 2024-10-14 11:31 | XMS_ITS | Encounter Summary ---
Author Organization [facility] Address [address] [place] [address]. [place], [place] [id number] [place] [id number] Care Team Providers Care Market Development Analyst Name Role Phone Magaly Ribeiro Primary Care Provider [phone] Encounter Details Date Type Department Care Team (Latest Contact Info) Description 09/15/2024 Travel Social History Tobacco Use Types Packs/Day [...] on filedocumented in this encounter Care Teams Market Development Analyst Relationship Specialty Start Date End Date Magaly Ribeiro FNP [address] [place] [address] [place] [address] PCP - General Nurse Practitioner Family 05/09/16 documented as of this encounter
--- OUTSIDE RECORDS SUMMARY | 2024-10-14 11:31 | XMS_ITS | Encounter Summary ---
Author Organization [facility] Address [address] [place] [address]. [place] [address] [place] [address] Care Team Providers Care Cut Filer Name Role Phone Magaly Ribeiro TURBOGENERATOR OPERATOR Primary Care Provider [phone] Encounter Details Date Type Department Care Team (Late st Contact Info) Description 09/15/2024 Orders Only [facility] [address] [place], [place] [id number] Neelima Castrejon MD [address] [place] [address] Social History Tobacco Use Types Packs/Day Years [...] documented as of this encounter Results * (ABNORMAL) COMPREHENSIVE METABOLIC PANEL (09/15/2024 10:55 AM GAME MODERATOR) [facility] [address] GLUCOSE 105(H) 70 - 99 MG/DL 09/15/2024 11:14 AM GAME MODERATOR [facility] BUN 5(L) 7 - 18 MG/DL 09/15/2024 11:14 AM GAME MODERATOR [facility] CREATININE S/P/B 0.76 0.55 - 1.02 MG/DL 09/15/2024 11:14 AM [facility] SODIUM S/P/B 142 136 - 145 MMOL/L 09/15/2024 11:14 AM [facility] POTASSIUM S/P/B 3.9 3.5 - 5.1 MMOL/L 09/15/2024 11:14 AM [facility] CHLORIDE S/P/B 107 100 - 108 MMOL/L 09/15/2024 11:14 AM [facility] CO2 27.3 21 - 32 MMOL/L 09/15/2024 11:14 AM [facility] CALCIUM S/P/B 8.9 8.5 - 10.1 MG/DL 09/15/2024 11:14 AM [facility] BILIRUBIN TOTAL S/P/B 1.2 0.2 - 1.2 MG/DL 09/15/2024 11:14 AM [facility] TOTAL PROTEIN S/P/B 7.0 6.4 - 8.2 G/DL 09/15/2024 11:14 AM [facility] ALBUMIN S/P/B 3.6 3.4 - 5.0 G/DL 09/15/2024 11:14 AM [facility] AST 74(H) 15 - 37 U/L 09/15/2024 11:14 AM [facility] ALT 118(H) 14 - 55 U/L 09/15/2024 11:14 AM [facility] ALKALINE PHOSPHATASE S/P/B 84 50 - 136 U/L 09/15/2024 11:14 AM [facility] ANION GAP 7.7 5 - 15 MMOL/L 09/15/2024 11:14 AM [facility] BUN CREATININE RATIO 6.6 6 - 26 09/15/2024 11:14 AM [facility] A/G RATIO 1.1 1.0 - 2.0 RATIO 09/15/2024 11:14 AM [facility] GFR ESTIMATE >90 >90 ML/MIN/1.7 3 M2 09/15/2024 11:14 AM [facility] Comment: NOTE: eGFR is not calculated for patients <18 years of age. This is an estimated GFR calculation using the new CKD EPI creatinine equation without race and so does not require a correction factor for race. This estimated GFR should not be used for calculating drug doses. 09/15/2024 10:5 5 AM GAME MODERATOR us Neelima Castrejon MD LABORATORY Final Result [facility] [address] [place] [id number], * (ABNORMAL) CBC W/DIFF AUTOMATED (09/15/2024 10:55 AM GAME MODERATOR) WBC 5.95 4.4 - 11.0 x10'3/uL 09/15/2024 11:00 AM [facility] RBC 4.19(L) 4.50 - 5.10 x10'6/uL 09/15/2024 11:00 AM [facility] HGB 12.4 12.3 - 15.3 G/DL 09/15/2024 11:00 AM [facility] HCT 36.5 35.9 - 44.6 % 09/15/2024 11:00 AM [facility] MCV 87.1 80.0 - 96.0 FL 09/15/2024 11:00 AM [facility] MCH 29.6 25.3 - 30.9 PG 09/15/2024 11:00 AM [facility] MCHC 34.0 31.0 - 34.1 G/DL 09/15/2024 11:00 AM [facility] RDW 13.0 12.4 - 15.1 % 09/15/2024 11:00 AM [facility] PLT 178 151 - 353 x10'3/uL 09/15/2024 11:00 AM [facility] MPV 10.5 9.6 - 12.0 FL 09/15/2024 11:00 AM [facility] RBC MORPHOLOGY NORMAL 09/15/2024 11:00 AM [facility] PLT MORPH. NORMAL 09/15/2024 11:00 AM [facility] WBC MORPHOLOGY NORMAL 09/15/2024 11:00 AM [facility] LYMPHOCYTES % 19.5 15.8 - 45.0 % 09/15/2024 11:00 AM [facility] NEUTROPHILS % 70.6 42.1 - 71.9 % 09/15/2024 11:00 AM [facility] MONOCYTES % 7.6 5.7 - 12.5 % 09/15/2024 11:00 AM [facility] EOSINOPHILS 1.3 0.0 - 5.6 % 09/15/2024 11:00 AM [facility] BASOPHILS 0.8 0.0 - 1.3 % 09/15/2024 11:00 AM [facility] ABS. NEUTROPHILS 4.20 1.40 - 6.00 x10'3/uL 09/15/2024 11:00 AM [facility] IMMATURE GRANS % 0.2 0.0 - 0.5 % 09/15/2024 11:00 AM [facility] ABS. LYMPHOCYTES 1.16 0.80 - 4.70 x10'3/uL 09/15/2024 11:00 AM GAME MODERATOR [facility] 09/15/2024 10:5 5 AM GAME MODERATOR us Neelima Castrejon MD LABORATORY Final Result [facility] [address] [place] [address], documented in this encounter Visit Diagnoses Diagnosis Uterine bleeding- Primary Unspecified disorder of menstruation and other abnormal bleeding from female genital tract documented in this encounter Care Teams Cut Filer Relationship Specialty Start Date End Date Magaly Ribeiro FNP [address] [place] [address] [place] [address] PCP - General Nurse Practitioner Family 05/09/16 documented as of this encounter
--- OUTSIDE RECORDS SUMMARY | 2024-10-14 11:31 | XMS_ITS | Clinical Summary ---
Author Organization [facility] Address [address] [place] [address]. [place] [address] [place] [address] Care Team Providers Care Reclamation Furnace Operator Name Role Phone Magaly Ribeiro NETWORK SECURITY OFFICER Primary Care Provider [phone] Allergies No known active allergies Medications FAMOTIDINE 20 MG tabletIndications: Epigastric pain TAKE 1 TABLET BY MOUTH TWICE A DAY 180 tablet 05/02/20 21 Active Additional Information Patient taking differently: 20 mg Oral 2 times daily PRN, Reported on 11/02/2023 levonorgestrel-eth inyl estradiol (SEASONALE) 0.15-0.03 MG tablet Take 1 tablet by mouth daily. 05/14/20 23 Active methylPREDNISolone , KM, (MEDROL DOSEPAK) 4 MG tabletIndications: Bacterial URI 6 TABLETS ON DAY ONE, 5 TABLETS DAY TWO, 4 TABLETS DAY THREE, 3 TABLETS DAY FOUR, 2 TABLETS DAY FIVE, AND 1 TABLET DAY SIX 1 each 11/02/19 24 Active ciprofloxacin (CILOXAN) 0.3 % ophthalmic solutionIndication s:Conjunctivitis of left eye, unspecified conjunctivitis type Administer 1 drop, every 2 hours, while awake, for 2 days. Then 1 drop, every 4 hours, while awake, for the next 5 days. 5 mL 11/02/19 24 Active Active Problems No known active problems Encounters Date Type Department Care Team Description 09/15/2024 10:44 AM LOADING MACHINE TOOL SETTER - 09/15/2024 11:59 PM [facility] Hospital Encounter [facility] [address] [place] [address] Neelima Fox MD Discharge Disposition: Home or Self Care (Routine Discharge) 09/15/2024 Orders Only [facility] [address] [place] [address] Neelima Fox MD 09/15/2024 Travel 09/12/2024 10:52 AM LOADING MACHINE TOOL SETTER Anesthesia Event [facility] Surgery [address] [place] [address] Karri Grande CRNA 09/12/2024 10:45 AM LOADING MACHINE TOOL SETTER - 09/12/2024 11:23 AM LOADING MACHINE TOOL SETTER Surgery [address] [address] Neelima Fox MD Suction Dilatation and Curettage; Transvaginal Ultrasound 09/12/2024 9:58 AM LOADING MACHINE TOOL SETTER - 09/12/2024 12:50 PM LOADING MACHINE TOOL SETTER Hospital Encounter [facility] [address] [place] [address] Neelima Fox MD Discharge Disposition: Home or Self Care (Routine Discharge) 09/12/2024 Travel 09/10/2024 Travel 09/04/2024 3:20 PM LOADING MACHINE TOOL SETTER - 09/04/2024 11:59 PM LOADING MACHINE TOOL SETTER Hospital Encounter [address] [address] Giuliana Madden, ULIM Discharge Disposition: Home or Self Care (Routine Discharge) 09/04/2024 Orders Only [address] [address] Giuliana Madden CNM 09/04/2024 Travel 08/30/2024 11:02 AM LOADING MACHINE TOOL SETTER - 08/30/2024 3:40 PM LOADING MACHINE TOOL SETTER Emergency [facility] Emergency Room [address] [place] [address] Pedro Hensley MD Vaginal Bleeding Discharge Disposition: Home or Self Care (Routine Discharge) 08/30/2024 Travel 07/15/2024 Scan [employer] INFO SRVCS Scanned, [facility] from Last 3 Months Immunizations Name Administration Dates Next Due Dtap 02/22/1999,1998 Dtap (Generic) 01/19/2004,01/10/2000,1998 Fluzone 6 Months+ Quad (0.5 mL Prefilled Syringe) 07/08/2020,06/20/2019 HPV 07/13/2014 HPV4 (Gardasil) 07/14/2013,04/17/2013 Hepatitis B 11/22/1999,1998,1998 Hib (Generic) 01/10/2000, 9,1998,03/1999 Influenza (Generic) 07/18/2018, 6,07/26/2015,07/01,07/14/2013 Influenza Adult (Generic) 06/20/2019 MENINGOCOCCAL A C Y&W-135 oligosaccharide (MENVEO) 04/17/2013 MMR 01/19/2004,11/22/1999 Meningococcal (Generic) 07/26/2015 Polio Ipv (Generic) 01/19/2004, 0,1998,03/1999 Tdap (Generic) 04/17/2013 Varicella Vaccine 07/18/2018,08/21/2000 Family History Medical History Relation Comments Crohns Disease Brother Hypertension Father Hyperlipidemia Mother Hypertension Mother Diabetes Paternal Grandfather Heart Disease Paternal Grandfather Hyperlipidemia Paternal Grandfather Hypertension Paternal Grandfather Kidney Disease Paternal Grandfather Hypertension Sister 1 Hypertension Sister 2 Relation Status Comments Brother Alive Father Alive Mother Alive Paternal Grandfather Paternal Grandmother Alive Sister 1 Alive Sister 2 Alive Social History Tobacco Use Types Packs/Day Years Used Date Smoking Tobacco: Never Smokeless Tobacco: Never Alcohol Use Standard Drinks/Week Comments Yes 0 (1 standard drink = 0.6 oz pur e alcohol) Comments No Sex and Gender Information Value Date Recorded Sex Assigned at Not on file Legal Sex Female 7:04 PM CDT Gender Identity Not on file Sexual Orientation Not on file Last Filed Vital Signs Vital Sign Reading Time Taken Comments Blood Pressure 123/85 09/12/2024 12:58 PM LOADING MACHINE TOOL SETTER Pulse 100 09/12/2024 12:05 PM LOADING MACHINE TOOL SETTER Temperature 36.3 ??C (97.4 ??F) 09/12/2024 11:[address] Respiratory Rate 16 09/12/2024 12:05 PM LOADING MACHINE TOOL SETTER Oxygen Saturation 100% 09/12/2024 12:05 PM LOADING MACHINE TOOL SETTER Inhaled Oxygen Concentration - - Weight 74.4 kg (164 lb) 09/12/2024 10:14 AM LOADING MACHINE TOOL SETTER Height 177.8 cm (5' 10 ) 09/12/2024 10:14 AM LOADING MACHINE TOOL SETTER Body Mass Index 23.53 09/12/2024 10:14 AM LOADING MACHINE TOOL SETTER Plan of Treatment Health Maintenance Due Date Last Done Comments Cervical Cancer Screening Pap Smear (Age 21 to 29) Every 3 Years 1998 Cervical Cancer Screening 1998 Annual Physical 2001 Hepatitis C 2016 DTaP, Tdap and Td Vaccines (7 - Td or Tdap) 04/17/2023 04/17/2013, 01/19/2004, 01/10/2000, Additional history exists COVID-19 Vaccine ( season) 2024 10/26/2020, 09/28/2020 Influenza Adult (#1) 2024 07/08/2020, 06/20/2019, 06/20/2019, Additional history exists Hepatitis B Vaccines Completed 11/22/1999, 1998, 1998 HPV Vaccines Completed 07/13/2014, 07/01, 04/17/2013 Meningococcal Vaccine Aged Out 07/26/2015, 013 No longer eligible based on patient's age to complete this topic Pneumococcal Vaccine: Pediatrics (0 to 5 Years) and At-Risk Patients (6 to 64 Years) Aged Out No longer eligible based on patient's age to complete this topic RSV Immunizations Under 20 Months Aged Out No longer eligible based on patient's age to complete this topic Procedures Procedure Name Priority Date/Time Associated Diagnosis Comments COMPREHENSIVE METABOLIC PANEL STAT 09/15/2024 10:55 AM LOADING MACHINE TOOL SETTER Uterine bleeding CBC W/DIFF AUTOMATED STAT 09/15/2024 10:55 AM LOADING MACHINE TOOL SETTER Uterine bleeding DILATATION & CURETTAGE SUCTION 09/12/2024 10:49 AM LOADING MACHINE TOOL SETTER O02.1 Case Notes Needs transvaginal ultrasound.Radiology notified. Eloina will call back when she knows if they have a tech. -[facility] 09/10 1438Spoke to Arianna with US and she says 1030 will probably work if they can move another patient's time. -[facility] 09/10 1500Spoke with Mara in Radiology. Mara said they could have the ultrasound ready around 11-CD 09/11 1000. PATHOLOGY Routine 09/12/2024 12:00 AM LOADING MACHINE TOOL SETTER PROGESTERONE Routine 09/04/2024 3:40 PM LOADING MACHINE TOOL SETTER Threatened (HHS/HCC) HCG QUANT (SERUM)-CHORIONIC GONADOTROPIN Routine 09/04/2024 3:40 PM LOADING MACHINE TOOL SETTER Threatened (HHS/HCC) US OB <14WKS TA+TV STAT 08/30/2024 1: 41 PM LOADING MACHINE TOOL SETTER HC URINALYSIS AUTO W/O MICRO STAT 08/30/2024 11:55 AM LOADING MACHINE TOOL SETTER TYPE & SCREEN STAT 08/30/2024 11:17 AM LOADING MACHINE TOOL SETTER HCG QUANT (SERUM)-CHORIONIC GONADOTROPIN STAT 08/30/2024 11:17 AM LOADING MACHINE TOOL SETTER COMPREHENSIVE METABOLIC PANEL STAT 08/30/2024 11:17 AM LOADING MACHINE TOOL SETTER CBC W/DIFF AUTOMATED STAT 08/30/2024 11:17 AM LOADING MACHINE TOOL SETTER from Last 3 Months Results * (ABNORMAL) COMPREHENSIVE METABOLIC PANEL (09/15/2024 10:55 AM LOADING MACHINE TOOL SETTER) Only the most recent of2 resultswithin the time period is included. GLUCOSE 105(H) 70 - 99 MG/DL 09/15/2024 11:14 AM LOADING MACHINE TOOL SETTER [facility] BUN 5(L) 7 - 18 MG/DL 09/15/2024 11:14 AM LOADING MACHINE TOOL SETTER [facility] CREATININE S/P/B 0.76 0.55 - 1.02 MG/DL 09/15/2024 11:14 AM [facility] SODIUM S/P/B 142 136 - 145 MMOL/L 09/15/2024 11:14 AM [facility] POTASSIUM S/P/B 3.9 3.5 - 5.1 MMOL/L 09/15/2024 11:14 AM [facility] CHLORIDE S/P/B 107 100 - 108 MMOL/L 09/15/2024 11:14 AM [facility] CO2 27.3 21 - 32 MMOL/L 09/15/2024 11:14 AM [facility] CALCIUM S/P/B 8.9 8.5 - 10.1 MG/DL 09/15/2024 11:14 AM [facility] BILIRUBIN TOTAL S/P/B 1.2 0.2 - 1.2 MG/DL 09/15/2024 11:14 AM [facility] TOTAL PROTEIN S/P/B 7.0 6.4 - 8.2 G/DL 09/15/2024 11:14 AM [facility] ALBUMIN S/P/B 3.6 3.4 - 5.0 G/DL 09/15/2024 11:14 AM [facility] AST 74(H) 15 - 37 U/L 09/15/2024 11:14 AM [facility] ALT 118(H) 14 - 55 U/L 09/15/2024 11:14 AM [facility] ALKALINE PHOSPHATASE S/P/B 84 50 - 136 U/L 09/15/2024 11:14 AM [facility] ANION GAP 7.7 5 - 15 MMOL/L 09/15/2024 11:14 AM [facility] BUN CREATININE RATIO 6.6 6 - 26 09/15/2024 11:14 AM LOADING MACHINE TOOL SETTER [facility] A/G RATIO 1.1 1.0 - 2.0 RATIO 09/15/2024 11:14 AM [facility] GFR ESTIMATE >90 >90 ML/MIN/1.7 3 M2 09/15/2024 11:14 AM [facility] Comment: NOTE: eGFR is not calculated for patients <18 years of age. This is an estimated GFR calculation using the new CKD EPI creatinine equation without race and so does not require a correction factor for race. This estimated GFR should not be used for calculating drug doses. 09/15/2024 10:5 5 AM LOADING MACHINE TOOL SETTER us Neelima Fox MD LABORATORY Final Result [facility] [address] [place] [address], * (ABNORMAL) CBC W/DIFF AUTOMATED (09/15/2024 10:55 AM LOADING MACHINE TOOL SETTER) Only the most recent of2 resultswithin the time period is included. WBC 5.95 4.4 - 11.0 x10'3/uL 09/15/2024 11:00 AM [facility] RBC 4.19(L) 4.50 - 5.10 x10'6/uL 09/15/2024 11:00 AM [facility] HGB 12.4 12.3 - 15.3 G/DL 09/15/2024 11:00 AM [facility] HCT 36.5 35.9 - 44.6 % 09/15/2024 11:00 AM [facility] MCV 87.1 80.0 - 96.0 FL 09/15/2024 11:00 AM [facility] MCH 29.6 25.3 - 30.9 PG 09/15/2024 11:00 AM [facility] MCHC 34.0 31.0 - 34.1 G/DL 09/15/2024 11:00 AM [facility] RDW 13.0 12.4 - 15.1 % 09/15/2024 11:00 AM [facility] PLT 178 151 - 353 x10'3/uL 09/15/2024 11:00 AM [facility] MPV 10.5 9.6 - 12.0 FL 09/15/2024 11:00 AM [facility] RBC MORPHOLOGY NORMAL 09/15/2024 11:00 AM [facility] PLT MORPH. NORMAL 09/15/2024 11:00 AM [facility] WBC MORPHOLOGY NORMAL 09/15/2024 11:00 AM [facility] LYMPHOCYTES % 19.5 15.8 - 45.0 % 09/15/2024 11:00 AM [facility] NEUTROPHILS % 70.6 42.1 - 71.9 % 09/15/2024 11:00 AM [facility] MONOCYTES % 7.6 5.7 - 12.5 % 09/15/2024 11:00 AM [facility] EOSINOPHILS 1.3 0.0 - 5.6 % 09/15/2024 11:00 AM [facility] BASOPHILS 0.8 0.0 - 1.3 % 09/15/2024 11:00 AM [facility] ABS. NEUTROPHILS 4.20 1.40 - 6.00 x10'3/uL 09/15/2024 11:00 AM [facility] IMMATURE GRANS % 0.2 0.0 - 0.5 % 09/15/2024 11:00 AM [facility] ABS. LYMPHOCYTES 1.16 0.80 - 4.70 x10'3/uL 09/15/2024 11:00 AM LOADING MACHINE TOOL SETTER [facility] 09/15/2024 10:5 5 AM LOADING MACHINE TOOL SETTER us Neelima Fox MD LABORATORY Final Result Performing Organization Address [facility]/State/ZIP Co de Phone Number [facility] [address] [place] [address], * Pathology (09/12/2024 12:00 AM LOADING MACHINE TOOL SETTER) PATHOLOGY [facility] ? Department of Laboratory Medicine ?[address] [facility] ?[place] [address] ? , [facility] [phone] ? Pathology Report ? Surgical Pathology Report Name: WILDA SMITHCARMEN THIBODEAUX ? Specimen #: [id number] Age: 11 2000 (Age: 24) ?[facility] Sex: F ?Procedure Date: 09/12/2024 [facility] #: [id number] ?Date Received: 09/15/2024 Date Reported: 09/16/2024 Provider: [...] 1.8 cm. ?? parts are not identified. ??Upholstery Auto Trimmer sections are submitted in cassette 1. Please note: The remaining specimen is returned to the collecting facility following microscopic examination. Gross examination (when applicable), interpretation, and sign out were performed at [facility], [address] [place] [address]. ?? Electronically Signed Out ? NASRIN JENKINS MD [facility] TISSUE (OTHER (type in comments)) 09/12/2024 11:22 AM LOADING MACHINE TOOL SETTER us Neelima Fox MD PATHOLOGY/CYTOLOGY ORDERABLES Final Result [facility] [address] [place] [address], [id number] * HCG QUANT (SERUM)-CHORIONIC GONADOTROPIN (09/04/2024 3:40 PM LOADING MACHINE TOOL SETTER) Only the most recent of2 resultswithin the time period is included. HCG QUANTITATIVE 80,734 MIU/ML 09/04/20 5:31 PM LOADING MACHINE TOOL SETTER [facility] Comment: WEEKS OF ? REFERENCE [...] MONTHS ?10,000 - 100,000 09/04/2024 3:40 PM LOADING MACHINE TOOL SETTER Giuliana MCNALLY LABORATORY Final Result Performing Organization Address City/State/[facility] Co de Phone Number [facility] [address] [place] [address], * PROGESTERONE (09/04/2024 3:40 PM LOADING MACHINE TOOL SETTER) PROGESTERONE 12.8 see note ng/mL 09/10/2024 12:22 PM LOADING MACHINE TOOL SETTER [facility] MARIA ISABEL DIAS Comment: Unable [...] Trimester ?52.0 -302.0 ng/mL Test Performed by [facility], 2,10E+[address] [place], [address] [place], [place] Arnold Hercules M.D., Ph.D., Director of Laboratories , [facility] [id number] 09/04/2024 3:40 PM LOADING MACHINE TOOL SETTER Giuliana Sandie Chano [facility] Final Result [facility] [id number] [place], [place] , [place] [phone] * US OB <14WKS TA+TV (08/30/2024 1:41 PM LOADING MACHINE TOOL SETTER) Anatomical Region Laterality Modality Ultrasound 08/30/2024 1:44 PM LOADING MACHINE TOOL SETTER Impressions 08/30/2024 1:48 PM LOADING MACHINE TOOL SETTER IMPRESSION: Viable single intrauterine with average ultrasound age of 6 weeks 3 days for due date 04/22/2025. ??This is very similar to the dates by LMP. Couple small foci of subchorionic hematoma. Cervix remains closed. Referred By: ?? Interpreted By: Augusto Lovett MD, 08/30/2024 1:44 PM Narrative 08/30/2024 1:48 PM LOADING MACHINE TOOL SETTER [facility] [address] [place] [address] Examination: US OB <14WKS TA+TV Exam time: 08/30/2024 1:06 PM Indication: . ??Last menstrual period 07/14/2024 for gestational age 6 weeks 5 days and due date 04/20/2025. ??Vaginal bleeding since Sunday. ??Evaluate for viability. Comparison: None Findings: Transabdominal plus transvaginal pelvic OB ultrasound performed with grayscale and color Doppler and spectral Doppler and heart tones. Single intrauterine with gestational sac, yolk sac, and fetus is identified. The heart rate is 164 bpm. ?? The crown-rump length is 0.58 cm. ??The mean sac diameter is 2.3 cm. Couple small foci of subchorionic hematoma are identified. ??Largest is 1.9 cm. ?? The maternal uterus is 8.9 x 6.4 x 4.6 cm. ??The cervix is closed. ??No pelvic free fluid. Corpus luteal cyst is present in the left ovary. ??No left ovarian torsion. ??The right ovary is not seen due to bowel gas. ?? Procedure Note Augusto Lovett MD - 08/30/2024 [facility] [address] [place] [address] Examination: US OB <14WKS TA+TV Exam time: 08/30/2024 1:06 PM Indication: . Last menstrual period 07/14/2024 for gestationalage 6 weeks 5 days and due date 04/20/2025. Vaginal bleeding sinceWednesday. Evaluate for viability. Comparison: None Findings: Transabdominal plus transvaginal pelvic OB ultrasound performed withgrayscale and color Doppler and spectral Doppler and heart tones. Single intrauterine with gestational sac, yolk sac, and fetus isidentified. The heart rate is 164 bpm. The crown-rump lengthis 0.58 cm. The mean sac diameter is 2.3 cm. Couple small foci of subchorionic hematoma are identified. Largest is 1.9cm. The maternal uterus is 8.9 x 6.4 x 4.6 cm. The cervix is closed. Nopelvic free fluid. Corpus luteal cyst is present in the left ovary. No left ovarian torsion.The right ovary is not seen due to bowel gas. IMPRESSION: Viable single intrauterine with average ultrasound age of 6weeks 3 days for due date 04/22/2025. [facility] Couple small foci of subchorionic hematoma. Cervix remains closed. Referred By: Interpreted By: Augusto oLvett MD, 08/30/2024 1:44 PM Pedro Hensley MD ULTRASOUND Final Result * (ABNORMAL) URINALYSIS (08/30/2024 11:55 AM LOADING MACHINE TOOL SETTER) COLOR (U) YELLOW 08/30/2024 12:23 PM [facility] TRANSPARENCY CLEAR 08/30/2024 12:23 PM [facility] SPECIFIC GRAVITY (U) 1.015 1.002 - 1.030 08/30/2024 12:23 PM [facility] U PH 7.0 4.5 - 8.0 08/30/2024 12:23 PM [facility] LEUKOCYTES (U) NEGATIVE NEGATIVE 08/30/2024 12:23 PM [facility] NITRITES NEGATIVE NEGATIVE 08/30/2024 12:23 PM [facility] PROTEIN RANDOM (U) 1+(A) NEGATIVE 08/30/2024 12:23 PM [facility] GLUCOSE (U) NEGATIVE NEGATIVE 08/30/2024 12:23 PM [facility] KETONES MG/DL (U) 1+(A) NEGATIVE 08/30/2024 12:23 PM [facility] UROBILINOGEN NORMAL NORMAL EU/DL 08/30/2024 12:23 PM [facility] BILIRUBIN (U) NEGATIVE NEGATIVE 08/30/2024 12:23 PM [facility] BLOOD (U) 3+(A) NEGATIVE 08/30/2024 12:23 PM [facility] RBC/HPF 5-10 /HPF 08/30/2024 12:23 PM [facility] EPI/HPF 0-5 /HPF 08/30/2024 12:23 PM LOADING MACHINE TOOL SETTER [facility] MUCUS 1+ 08/30/2024 12:23 PM LOADING MACHINE TOOL SETTER [facility] URINE SPECIMEN OBTAINED BY CLEAN CATCH PROCEDURE / Unknown 08/30/2024 11:55 AM LOADING MACHINE TOOL SETTER us Pedro Hensley MD URINE ORDERABLES Final Result Performing Organization Address City/[facility]/ZIP Co de Phone Number [facility] [address] [place] [address], [place] [phone] * TYPE AND SCREEN (08/30/2024 11:17 AM LOADING MACHINE TOOL SETTER) ABO/RH O POSITIVE 08/30/2024 12:11 PM LOADING MACHINE TOOL SETTER [facility] ANTIBODY SCREEN NEGATIVE 08/30/2024 12:38 PM LOADING MACHINE TOOL SETTER [facility] SAMPLE EXPIRATION 09/02/2024,2 359 08/30/2024 12:11 PM LOADING MACHINE TOOL SETTER [facility] 08/30/2024 11:1 7 AM LOADING MACHINE TOOL SETTER us Pedro Hensley MD BLOOD BANK TEST ORDERABLES Final Result Performing Organization Address [facility] de Phone Number [facility] [address] [place] [address], [place] [phone] from Last 3 Months Insurance Care Teams Reclamation Furnace Operator Relationship Specialty Start Date End Date Magaly Ribeiro FNP [address] [place] [address] [place] [address] PCP - General Nurse Practitioner Family 05/09/16
--- OUTSIDE RECORDS SUMMARY | 2024-10-14 11:32 | XMS_ITS | Encounter Summary ---
Author Organization [facility] Address [address] [place] [address]. [place], [place] [address] [place] [address] Care Team Providers Care All Source Intelligence Name Role Phone Magaly Ribeiro Primary Care Provider [phone] Encounter Details Date Type Department Care Team (Latest Contact Info) Description 07/08/2020 Travel Social History Tobacco Use Types Packs/Day Years Used Date Smoking Tobacco: Never Assessed Comments Unknown Sex and Gender Information Value Date Recorded Sex Assigned at Not on file Legal Sex Female 7:04 PM CDT Gender Identity Not on file Sexual Orientation Not on file COVID-19 Exposure Response Date Recorded In the last month, have you been in contact with someone who was confirmed or suspected to have Coronavirus / COVID-19? No / Unsure 07/08/2020 1:24 PM CDT documented as of this encounter Plan of Treatment Not on file documented as of this encounter Visit Diagnoses Not on filedocumented in this encounter Care Teams All Source Intelligence Relationship Specialty Start Date End Date Magaly Ribeiro FNP [address] [place] [address] [place] [address] PCP - General Nurse Practitioner Family 05/09/16 documented as of this encounter
--- OUTSIDE RECORDS SUMMARY | 2024-10-14 11:32 | XMS_ITS | Encounter Summary ---
Author Organization [facility] Address [address] [place] [address]. [place], [place] [address] [place] [address] Care Team Providers Care Vegetable Farm Manager Name Role Phone Magaly Ribeiro Primary Care Provider [phone] Encounter Details Date Type Department Care Team (Latest Contact Info) Description 04/05/2021 Travel Social History Tobacco Use Types Packs/Day [...] have Coronavirus / COVID-19? No / Unsure 04/05/2021 2:14 PM CDT documented as of this encounter Plan of Treatment Not on file documented as of this encounter Visit Diagnoses Not on filedocumented in this encounter Care Teams Vegetable Farm Manager Relationship Specialty Start Date End Date Magaly Ribeiro FNP [address] [place] [address] [place] [address] PCP - General Nurse Practitioner Family 05/09/16 documented as of this encounter
--- OUTSIDE RECORDS SUMMARY | 2024-10-14 11:32 | XMS_ITS | Encounter Summary ---
Author Organization [facility] Address [address] [place] [address]. [place], [place] [address] [place] [address] Care Team Providers Care Hospital Coder Name Role Phone Magaly Ribeiro Primary Care Provider [phone] Encounter Details Date Type Department Care Team (Late st Contact Info) Description 08/15/2016 Abstract [facility] Clinics Conversion Md, Generic Conversion, Social History Tobacco Use Types Packs/Day Years [...] on filedocumented in this encounter Care Teams Hospital Coder Relationship Specialty Start Date End Date Magaly Ribeiro FNP [address] [place] [address] [place] [address] PCP - General Nurse Practitioner Family 05/09/16 documented as of this encounter
--- OUTSIDE RECORDS SUMMARY | 2024-10-14 11:32 | XMS_ITS | Encounter Summary ---
Author Organization [facility] Address [address] [place] [address]. [place], [place] [address] [place] [address] Care Team Providers Care Senior Mobile Web Developer Name Role Phone Magaly Ribeiro Primary Care Provider [phone] Encounter Details Date Type Department Care Team (Late st Contact Info) Description 02/10/2017 Abstract [facility] [address] [place] [address] Radha Caro FNP Social History Tobacco Use Types Packs/Day Years [...] have Coronavirus / COVID-19? No / Unsure 04/14/2021 8:16 AM CDT documented as of this encounter Plan of Treatment Not on file documented as of this encounter Visit Diagnoses Not on filedocumented in this encounter Additional Health Concerns Infection Onset Date Last Indicated Resolved Time COVID-19 Rule Out 04/14/2021 04/14/2021 04/14/2021 8:42 AM CDT COVID-19 Rule Out 04/14/2021 04/14/2021 04/15/2021 4:10 PM CDT documented as of this encounter Care Teams Senior Mobile Web Developer Relationship Specialty Start Date End Date Magaly Ribeiro FNP [facility] [place] [address] PCP - General Nurse Practitioner Family 05/09/16 documented as of this encounter
--- OUTSIDE RECORDS SUMMARY | 2024-10-14 11:32 | XMS_ITS | Encounter Summary ---
Author Organization [facility] Address [address] [place] [address]. [place] [address] [place] [address] Care Team Providers Care Radiation Protection Technician Name Role Phone Magaly Ribeiro [employer] Primary Care Provider [phone] Encounter Details Date Type Department Care Team (Latest Contact Info) Description 09/04/2024 3:20 PM CHAINSTITCH ELASTIC ATTACHER - 09/04/2024 11:59 PM [facility] Hospital Encounter [facility] [address] [place] [address] [facility] [address] [place] [address] Discharge Disposition: Home or Self Care (Routine [...] Procedure Name Priority Date/Time Associated Diagnosis Comments HCG QUANT (SERUM)-CHORIONIC GONADOTROPIN Routine 09/04/2024 3:40 PM CHAINSTITCH ELASTIC ATTACHER Threatened (HHS/HCC) PROGESTERONE Routine 09/04/2024 3:40 PM CHAINSTITCH ELASTIC ATTACHER Threatened (HHS/HCC) documented in this encounter Results * PROGESTERONE (09/04/2024 3:40 PM CHAINSTITCH ELASTIC ATTACHER) PROGESTERONE 12.8 see note ng/mL 09/10/2024 12:22 PM CHAINSTITCH ELASTIC ATTACHER Greenpie MARIA ISABEL DIAS Comment: Unable to flag [...] -302.0 ng/mL Test Performed by Abhilash Akhtar, hoozin Chad [facility], [address] [place] [address] Arnold Hercules M.D., Ph.D., Director of Laboratories , [place] [id number] 09/04/2024 3:40 PM CHAINSTITCH ELASTIC ATTACHER [facility] Final Result [facility] [address] [place] [address], [place] [phone] * HCG QUANT (SERUM)-CHORIONIC GONADOTROPIN (09/04/2024 3:40 PM CHAINSTITCH ELASTIC ATTACHER) Pathologist [facility] HCG QUANTITATIVE 80,734 MIU/ML 09/04/20 24 5:31 PM CHAINSTITCH ELASTIC ATTACHER [facility] Comment: WEEKS OF ? REFERENCE [...] MONTHS ?10,000 - 100,000 09/04/2024 3:40 PM CHAINSTITCH ELASTIC ATTACHER [facility] Final Result Performing Organization Address [facility] Co de Phone Number [facility] [address] [place] [address], [place] [phone] documented in this encounter Visit Diagnoses Diagnosis Threatened ([facility]) Threatened , unspecified as to episode of care documented in this encounter Care Teams Radiation Protection Technician Relationship Specialty Start Date End Date Magaly Ribeiro FNP [address] [place] [address] [place] [address] PCP - General Nurse Practitioner Family 05/09/16 documented as of this encounter
--- OUTSIDE RECORDS SUMMARY | 2024-10-14 11:32 | XMS_ITS | Encounter Summary ---
Author Organization [facility] Address [address] [place] [address]. [place], [place] [address] [place] [address] Care Team Providers Care Maori Physiotherapist Name Role Phone Magaly Ribeiro Primary Care Provider [phone] Reason for Visit * Reason Comments Imm/Inj Need for flu vaccine . Encounter Details Date Type Department Care Team (Latest Contact Info) Description 06/20/2019 9:20 AM CDT Allied Health/Nurse Visit [facility] [address] [place] [address] Imm/Inj (Need for flu vaccine. ) Social History Tobacco Use Types Packs/Day Years Used Date Smoking Tobacco: Never Assessed Comments Unknown Sex and Gender Information Value Date Recorded Sex Assigned at Not on file Legal Sex Female 7:04 PM CDT Gender Identity Not on file Sexual Orientation Not on file documented as of this encounter Plan of Treatment Not on file documented as of this encounter Visit Diagnoses Diagnosis Need for immunization against influenza- Primary Need for prophylactic vaccination and inoculation against influenza documented in this encounter Care Teams Maori Physiotherapist Relationship Specialty Start Date End Date Magaly Ribeiro FNP [address] [place] [address] PCP - General Nurse Practitioner Family 05/09/16 documented as of this encounter
--- OUTSIDE RECORDS SUMMARY | 2024-10-14 11:32 | XMS_ITS | Encounter Summary ---
Author Organization [facility] Address [address] [place] [address]. [place], [place] [address] [place] [address] Care Team Providers Care Supervisor Histology Name Role Phone Magaly Ribeiro Primary Care Provider [phone] Encounter Details Date Type Department Care Team (Latest Contact Info) Description 07/15/2024 Scan HEALTH INFO SRVCS Scanned, Doc Med Group Social History Tobacco Use Types Packs/Day Years [...] on filedocumented in this encounter Care Teams Supervisor Histology Relationship Specialty Start Date End Date Magaly Ribeiro FNP [address] [place] [address] [place] [address] PCP - General Nurse Practitioner Family 05/09/16 documented as of this encounter
--- OUTSIDE RECORDS SUMMARY | 2024-10-14 11:32 | XMS_ITS | Encounter Summary ---
Author Organization [facility] Address [address] [place] [address]. [place], [place] [address] [place] [address] Care Team Providers Care Sales Clerk Name Role Phone Magaly Ribeiro Primary Care Provider [phone] Encounter Details Date Type Department Care Team (Latest Contact Info) Description 05/15/2024 Scan HEALTH INFO SRVCS Scanned, Doc Med [...] on filedocumented in this encounter Care Teams Sales Clerk Relationship Specialty Start Date End Date Magaly Ribeiro FNP [address] [place] [address] [place] [address] PCP - General Nurse Practitioner Family 05/09/16 documented as of this encounter
--- OUTSIDE RECORDS SUMMARY | 2024-10-14 11:32 | XMS_ITS | Encounter Summary ---
Author Organization [facility] Address [address] [place] [address]. [place], [place] [address] [place] [address] Care Team Providers Care Manager Distribution Center Name Role Phone Magaly Ribeiro Primary Care Provider [phone] Encounter Details Date Type Department Care Team (Latest Contact Info) Description 07/18/2018 Scan HEALTH INFO SRVCS Scanned, Documents Social History Tobacco Use Types Packs/Day Years [...] on filedocumented in this encounter Care Teams Manager Distribution Center Relationship Specialty Start Date End Date Magaly Ribeiro FNP [address] [place] [address] [place] [address] PCP - General Nurse Practitioner Family 05/09/16 documented as of this encounter
--- OUTSIDE RECORDS SUMMARY | 2024-10-14 11:32 | XMS_ITS | Encounter Summary ---
Author Organization [facility] Address [address] [place] [address]. [place] [address] [place] [address] Care Team Providers Care Senior Geotechnical Engineer Name Role Phone Magaly Ribeiro [facility] Primary Care Provider [phone] Reason for Visit * Reason Comments URI/ENT Symptoms Encounter Details Date Type Department Care Team (Late st Contact Info) Description 04/14/2021 8:00 AM CDT Office Visit [address] [place] [id number] [place] [address] [place] [address] URI/ENT Symptoms Social History Tobacco Use Types Packs/Day Years [...] AM CDT documented as of this encounter Last Filed Vital Signs Vital Sign Reading Time Taken Comments Blood Pressure 110/60 04/14/2021 8:25 AM CDT Pulse 80 04/14/2021 8:25 AM CDT Temperature 36.7 ??C (98.1 ??F) 04/14/2021 8:25 AM CD T Respiratory Rate 14 04/14/2021 8:25 AM CDT Oxygen Saturation - - Inhaled Oxygen Concentration - - Weight 67.1 kg (148 lb) 04/14/2021 8:25 AM CDT Height 174 cm (5' 8.5 ) 04/14/2021 8:25 AM CDT Body Mass Index 22.18 04/14/2021 8:25 AM CDT documented in this encounter Patient Instructions * Patient Instructions* VALORIE Nguyen - 04/14/2021 8:00 AM CDT Continue with over the counter medication as needed. Stay well hydrated. documented in this encounter Progress Notes * VALORIE Nguyen - 04/14/2021 8:00 AM CDT Evelyn Oden is a 20-year-old female patient. Reason for Visit: URI/ENT Symptoms History of Present Illness: Here for cold symptoms that started three days ago. Sore throat and nasal congestion. Congestion isworse after mowing grass. Has been taking ibuprofen and sudafed with some relief. Sleeping okay. Noloss of taste, smell. No fever. Has completed COVID vaccination. Will be traveling out of the country tomorrow. ROS: Review of Systems Constitutional: Negative. HENT: Positive for congestion and sore throat. Respiratory: Negative for cough. Cardiovascular: Negative. Gastrointestinal: Negative. Endo/Heme/Allergies: Positive for environmental allergies. Psychiatric/Behavioral: The patient does not have insomnia. Medications: Current Outpatient Medications: ??? famotidine 20 MG tablet, Take 1 tablet (20 mg total) by mouth 2 (two) times daily., Disp: 60 tablet, Rfl: 0 ??? 0.25-35 MG-MCG tablet, Take 1 tablet by mouth daily. , Disp: , Rfl: ??? scopolamine 1 MG/3DAYS patch, Place 1 patch onto the skin every third day., Disp: 3 patch, Rfl:0 No Known Allergies Past Medical History: Diagnosis Date ??? Streptococcal pharyngitis 2016 No past surgical history on file. Social History Tobacco Use ??? Smoking status: Never Smoker ??? Smokeless tobacco: Never Used Substance Use Topics ??? Alcohol use: Yes ??? Drug use: Never Family History Problem Relation Name Age of Onset ??? Hyperlipidemia Mother ??? Hypertension Mother ??? Hypertension Father ??? Hypertension Sister Raysa Mehta ??? Crohns Disease Brother ??? Diabetes Paternal Grandfather ??? Heart Disease Paternal Grandfather ??? Hyperlipidemia Paternal Grandfather ??? Hypertension Paternal Grandfather ??? Kidney Disease Paternal Grandfather ??? Hypertension Sister Family Status Relation Name Status ??? Mother Alive ??? Father Alive ??? Sister Raysa Mehta Alive ??? Brother Alive ??? PGM Alive ??? PGF ??? Sister Alive Filed Vitals: 04/14/21 0825 BP: 110/60 Pulse: 80 Resp: 14 Temp: 98.1 ??F (36.7 ??C) TempSrc: Tympanic Weight: 67.1 kg (148 lb) Height: 5' 8.5 (1.74 m) Body mass index is 22.18 kg/m??. Physical Exam: Physical Exam Constitutional: Appearance: Normal appearance. She is not ill-appearing or toxic-appearing. HENT: Head: Normocephalic. Right Ear: Hearing, tympanic membrane, ear canal and external ear normal. Left Ear: Hearing, ear canal and external ear normal. A middle ear effusion is present. Nose: Mucosal edema present. Mouth/Throat: Lips: [place]. Mouth: Mucous membranes are moist. Eyes: General: Lids are normal. Conjunctiva/sclera: Conjunctivae normal. Cardiovascular: Rate and Rhythm: Normal rate and regular rhythm. Heart sounds: Normal heart sounds. Pulmonary: Effort: Pulmonary effort is normal. Breath sounds: Normal breath sounds and air entry. Lymphadenopathy: Cervical: No cervical adenopathy. Skin: General: Skin is warm and dry. Neurological: Mental Status: She is alert. Psychiatric: Attention and Perception: Attention normal. Mood and Affect: Mood normal. Speech: Speech normal. Behavior: Behavior normal. Thought Content: Thought content normal. Cognition and Memory: Cognition normal. Judgment: Judgment normal. Diagnoses/Impression: Encounter Diagnose(s) ICD-10-CM ICD-9-CM SNOMED CT(R) 1. Nasal drainage J34.89 478.19 NASAL DISCHARGE CORONAVIRUS (COVID-19) ANTIGEN [facility] SARS-COV RNA QUAL NAAT [facility] SARS-COV RNA QUAL NAAT [facility] SARS-COV RNA QUAL NAAT 2. Viral upper respiratory tract infection J06.9 465.9 VIRAL UPPER RESPIRATORY TRACT INFECTION Recommendations and Plan: Rapid COVID test is negative. Continue with current OTC medications as needed. Stay cool and well hydrated. Reviewed signs and symptoms of worsening infection and when to seek treatment. Patient Instructions Continue with over the counter medication as needed. Stay well hydrated. VALORIE NGUYEN Cosigned by Orestes Robert MD at 04/14/2021 6:57 PM CDT documented in this encounter Plan of Treatment Not on file documented as of this encounter Procedures Procedure Name Priority Date/Time Associated Diagnosis Comments CORONAVIRUS (COVID 19) Routine 04/14/2021 8:43 AM CDT Nasal drainage CORONAVIRUS (COVID-19) ANTIGEN Routine 04/14/2021 Nasal drainage documented in this encounter Results * [facility] SARS-COV RNA QUAL NAAT (04/14/2021 8:43 AM CDT) Pathologist [facility] CORONAVIRUS SARS COV 2 PCR (RESP) NOT DETECTED NOT DETECTED [facility] Comment: A Not Detected (negative) test result for this test means that SARS-CoV-2 RNA was not present in the specimen above the limit of detection. A negative result does not rule out the possibility of COVID-19 and should not be used as the sole basis for treatment or patient management decisions. If COVID-19 is still suspected, based on exposure history together with other clinical findings, re-testing should be considered in consultation with public health authorities. Laboratory test results should always be considered in the context of clinical observations and epidemiological data in making a final diagnosis and patient management decisions. ?? This patient specimen was tested using an FDA EUA pooling method. Negative results from pooled testing should not be treated as definitive. If the patient's clinical signs and symptoms are inconsistent with a negative result or results are necessary for patient management, then the patient should be considered for individual testing. In very rare cases, estimated at about 8 in 1,000 (0.8%) or less patient specimens with low viral loads may not be detected in sample pools due to the decreased sensitivity of pooled testing. Please review the Fact Sheets and FDA authorized labeling available for health care providers and patients using the following websites: https://www.[employer]/home/Covid-19/HCP/rc- ottk-rki3-pysj-sheet.html https://www.[employer]/home/Covid-19/Patients/ dc-obqf-mid0-fact-sheet.html This test has been authorized by the FDA under an Emergency Use Authorization (EUA) for use by authorized laboratories. Due to the current public health emergency, [employer] is receiving a high volume of samples from a wide variety of swabs and media for COVID-19 testing. In order to serve patients during this public health crisis, samples from appropriate clinical sources are being tested. Negative test results derived from specimens received in non-commercially manufactured viral collection and transport media, or in media and sample collection kits not yet authorized by FDA for COVID-19 testing should be cautiously evaluated and the patient potentially subjected to extra precautions such as additional clinical monitoring, including collection of an additional specimen. Methodology: ??Nucleic Acid Amplification Test (NAAT) includes RT-PCR or TMA ?? Additional information about COVID-19 can be found at the [employer] website: www.[employer]/Covid19. NASOPHARYNGEAL SWAB / Unknown 04/14/2021 8:43 AM CDT 04/15/2021 7:42 AM CDT us Raysa Mehta COLLAR TURNER OPERATOR MICROBIOLOGY - GENERAL OR DERABLES Final Result [facility] [address] [place] [address] * CORONAVIRUS (COVID-19) ANTIGEN (04/14/2021) CORONAVIRUS ANTIGEN IA NEGATIVE NEGATIVE [facility] [place] Internal Control: VALID VALID [facility] (201), [place] Specimen from nose (specimen) NASAL STRUCTURE / Unknown 04/14/2021 Raysa TAMAOYP MICROBIOLOGY - GENERAL OR DERABLES Final Result [facility] (), [address] [address], documented in this encounter Visit Diagnoses Diagnosis Nasal drainage- Primary Other diseases of nasal cavity and sinuses Viral upper respiratory tract infection Acute upper respiratory infections of unspecified site documented in this encounter Additional Health Concerns Infection Onset Date Last Indicated Resolved Time COVID-19 Rule Out 04/14/2021 04/14/2021 04/14/2021 8:42 AM CDT COVID-19 Rule Out 04/14/2021 04/14/2021 04/15/2021 4:10 PM CDT documented as of this encounter Care Teams Senior Geotechnical Engineer Relationship Specialty Start Date End Date Magaly Ribeiro FNP [address] [place] [address] [place] [address] PCP - General Nurse Practitioner Family 05/09/16 documented as of this encounter
--- OUTSIDE RECORDS SUMMARY | 2024-10-14 11:32 | XMS_ITS | Encounter Summary ---
Author Organization [facility] Address [address] [place] [address]. [place], [place] [address] [place] [address] Care Team Providers Care Electrician Elevator Maintenance Name Role Phone Magaly Ribeiro Primary Care Provider [phone] Encounter Details Date Type Department Care Team (Latest Contact Info) Description 06/20/2019 Scan HEALTH INFO SRVCS Scanned, Documents Social [...] on filedocumented in this encounter Care Teams Electrician Elevator Maintenance Relationship Specialty Start Date End Date Magaly Ribeiro FNP [address] [place] [address] [place] [address] PCP - General Nurse Practitioner Family 05/09/16 documented as of this encounter
--- OUTSIDE RECORDS SUMMARY | 2024-10-14 11:32 | XMS_ITS | Encounter Summary ---
Author Organization [facility] Address [address] [place] [address]. [place], [place] [address] [place] [address] Care Team Providers Care Range Aid Name Role Phone Magaly Ribeiro Primary Care Provider [phone] Encounter Details Date Type Department Care Team [...] on filedocumented in this encounter Care Teams Range Aid Relationship Specialty Start Date End Date Magaly Ribeiro FNP [address] [place] [address] [place] [address] PCP - General Nurse Practitioner Family 05/09/16 documented as of this encounter
--- OUTSIDE RECORDS SUMMARY | 2024-10-14 11:32 | XMS_ITS | Encounter Summary ---
Author Organization [facility] Address [address] [place] [address]. [place] [address] [place] [address] Care Team Providers Care Cut Off Operator Scorer Name Role Phone Magaly Ribeiro [facility] Primary Care Provider Reason for Visit * Reason Comments Eye Encounter Details Date Type Department Care Team (Late st Contact Info) Description 11/02/2023 4:00 PM BIOMEDICAL SPECIALIST Office Visit [facility] [address] [place] [address] [place] [address] [address] [place] [id number] Eye Social History Tobacco Use Types Packs/Day Years [...] Sign Reading Time Taken Comments Blood Pressure 120/78 11/02/2023 4:08 PM BIOMEDICAL SPECIALIST Pulse 97 11/02/2023 4:08 PM BIOMEDICAL SPECIALIST Temperature 36.9 ??C (98.4 ??F) 11/02/2023 4:08 PM CS T Respiratory Rate 16 11/02/2023 4:08 PM BIOMEDICAL SPECIALIST Oxygen Saturation 98% 11/02/2023 4:08 PM BIOMEDICAL SPECIALIST Inhaled Oxygen Concentration - - Weight 71.2 kg (157 lb) 11/02/2023 4:08 PM BIOMEDICAL SPECIALIST Height 174 cm (5' 8.5 ) 11/02/2023 4:08 PM BIOMEDICAL SPECIALIST Body Mass Index 23.52 11/02/2023 4:08 PM BIOMEDICAL SPECIALIST documented in this encounter Patient Instructions * Patient Instructions* VALORIE Nguyen - 11/02/2023 4:00 PM BIOMEDICAL SPECIALIST Good hand washing. Rest and hydrate well. Let me know if symptoms are not resolving as expected or for additional concerns. EDICAL SPECIALIST EDICAL SPECIALIST documented in this encounter Progress Notes * VALORIE Nguyen - 11/02/2023 4:00 PM CST Evelyn Oden is a 23-year-old female patient. Reason for Visit: Eye History of Present Illness: Here for CC visit for URI symptoms starting Sunday. Had fever on Sunday and Sunday. Reports nasalcongestion, hoarse voice, sore throat, feeling worse today with sinus pressure, continued sore throat. Now has left eye redness and watery discharge. Drinking liquids well. ROS: Review of Systems Constitutional: Positive for malaise/fatigue. Negative for fever. HENT: Positive for congestion, ear pain and sore throat. Eyes: Positive for discharge and redness. Respiratory: Positive for cough. Gastrointestinal: Negative. Psychiatric/Behavioral: Negative. Medications: Current Outpatient Medications: cefdinir (OMNICEF) 300 MG Cap capsule, Take 1 capsule (300 mg total) by mouth 2 (two) times daily for 7 days., Disp: 14 capsule, Rfl: 0 ciprofloxacin (CILOXAN) 0.3 % ophthalmic solution, Administer 1 drop, every 2 hours, while awake, for 2 days. Then 1 drop, every 4 hours, while awake, for the next 5 days., Disp: 5 mL, Rfl: 0 FAMOTIDINE 20 MG tablet, TAKE 1 TABLET BY MOUTH TWICE A DAY (Patient taking differently: Take 1 tablet (20 mg total) by mouth 2 (two) times daily as needed.), Disp: 180 tablet, Rfl: 0 levonorgestrel-ethinyl estradiol (SEASONALE) 0.15-0.03 MG tablet, Take 1 tablet by mouth daily., Disp: , Rfl: methylPREDNISolone, KM, (MEDROL DOSEPAK) 4 MG tablet, 6 TABLETS ON DAY ONE, 5 TABLETS DAY TWO, 4 TABLETS DAY THREE, 3 TABLETS DAY FOUR, 2 TABLETS DAY FIVE, AND 1 TABLET DAY SIX, Disp: 1 each, Rfl: 0 Review of patient's allergies indicates: No Known Allergies Past Medical History: Diagnosis Date Streptococcal pharyngitis 2016 No past surgical history on file. Social History Tobacco Use Smoking status: Never Smokeless tobacco: Never Substance Use Topics Alcohol use: Yes Drug use: Never Family History Problem Relation Name Age of Onset Hyperlipidemia Mother Hypertension Mother Hypertension Father Hypertension Sister Raysa Mehta Crohns Disease Brother Diabetes Paternal Grandfather Heart Disease Paternal Grandfather Hyperlipidemia Paternal Grandfather Hypertension Paternal Grandfather Kidney Disease Paternal Grandfather Hypertension Sister Family Status Relation Name Status Mother Alive Father Alive Sister Raysa Cintronrimichael Alive Brother Alive PGM Alive PGF Sister Alive Filed Vitals: 11/02/23 1608 BP: 120/78 Pulse: 97 Resp: 16 Temp: 98.4 ??F (36.9 ??C) TempSrc: Tympanic SpO2: 98% Weight: 71.2 kg (157 lb) Height: 1.74 m (5' 8.5 ) Body mass index is 23.52 kg/m??. Physical Exam: Physical Exam Constitutional: Appearance: Normal appearance. She is ill-appearing. HENT: Head: Normocephalic. Right Ear: Tympanic membrane is bulging (mild). Tympanic membrane is not erythematous. Left Ear: Tympanic membrane is bulging (mild). Tympanic membrane is not erythematous. Eyes: General: Lids are normal. Conjunctiva/sclera: Right eye: Right conjunctiva is injected. Left eye: Left conjunctiva is injected. Exudate present. Cardiovascular: Rate and Rhythm: Normal rate and regular rhythm. Heart sounds: Normal heart sounds. Pulmonary: Effort: Pulmonary effort is normal. Breath sounds: Normal breath sounds and air entry. Neurological: Mental Status: She is alert. Psychiatric: Behavior: Behavior normal. Behavior is cooperative. Diagnoses/Impression: Encounter Diagnose(s) ICD-10-CM SNOMED CT(R) 1. Bacterial URI J06.9 BACTERIAL UPPER RESPIRATORY INFECTION cefdinir (OMNICEF) 300 MG Cap capsule B96.89 methylPREDNISolone, KM, (MEDROL DOSEPAK) 4 MG tablet 2. Conjunctivitis of left eye, unspecified conjunctivitis type H10.9 CONJUNCTIVITIS OF LEFT EYE ciprofloxacin (CILOXAN) 0.3 % ophthalmic solution Recommendations and Plan: Discussed use of cefdinir, medrol, ciloxan. Reviewed associated side effects. Reviewed signs and symptoms of worsening condition and when to seek treatment. Patient Instructions Good hand washing. Rest and hydrate well. Let me know if symptoms are not resolving as expected or for additional concerns. VALORIE NGUYEN Cosigned by Orestes Robert MD at 11/03/2023 7:35 PM BIOMEDICAL SPECIALIST EDICAL SPECIALIST EDICAL SPECIALIST documented in this encounter Plan of Treatment Not on file documented as of this encounter Visit Diagnoses Diagnosis Bacterial URI- Primary Conjunctivitis of left eye, unspecified conjunctivitis type documented in this encounter Care Teams Cut Off Operator Scorer Relationship Specialty Start Date End Date Magaly Ribeiro FNP [address] [place] [address] [place] [address] PCP - General Nurse Practitioner Family 05/09/16 documented as of this encounter
--- OUTSIDE RECORDS SUMMARY | 2024-10-14 11:32 | XMS_ITS | Encounter Summary ---
Author Organization [facility] Address [address] [place] [address]. [place], [place] [id number] [place] [address] Care Team Providers Care Gyro Compass Tester Name Role Phone Magaly Ribeiro Primary Care Provider [phone] Encounter Details Date Type Department Care Team (Late st Contact Info) Description 07/18/2018 Abstract [facility] Conversion Magaly Ribeiro FNP [address] [place], [place] [id number] Social History Tobacco Use Types Packs/Day Years Used Date Smoking Tobacco: Never Assessed Comments Unknown Sex and Gender Information Value Date Recorded Sex Assigned at Not on file Legal Sex Female 7:04 PM CDT Gender Identity Not on file Sexual Orientation Not on file documented as of this encounter Last Filed Vital Signs Vital Sign Reading Time Taken Comments Blood Pressure 110/82 07/18/2018 1:44 PM CDT Pulse 92 07/18/2018 1:44 PM CDT Temperature - - Respiratory Rate - - Oxygen Saturation - - Inhaled Oxygen Concentration - - Weight 61.3 kg (135 lb 2 oz) 07/18/2018 1:44 PM CDT Height 174 cm (5' 8.5 ) 07/18/2018 1:44 PM CDT Body Mass Index 20.25 07/18/2018 1:44 PM CDT documented in this encounter Plan of Treatment Not on file documented as of this encounter Visit Diagnoses Not on filedocumented in this encounter Care Teams Gyro Compass Tester Relationship Specialty Start Date End Date Magaly Ribeiro FNP [address] [place] [address] [place] [address] PCP - General Nurse Practitioner Family 05/09/16 documented as of this encounter
--- OUTSIDE RECORDS SUMMARY | 2024-10-14 11:32 | XMS_ITS | Encounter Summary ---
Author Organization [facility] Address [address] [place] [address]. [place], [place] [address] [place] [address] Care Team Providers Care Sales Forecast Analyst Name Role Phone Magaly Ribeiro Primary Care Provider [phone] Encounter Details Date Type Department Care Team (Latest Contact Info) Description 08/30/2024 Travel Social History Tobacco Use Types Packs/Day [...] filedocumented in this encounter Care Teams Sales Forecast Analyst Relationship Specialty Start Date End Date Magaly Ribeiro FNP [address] [place] [address] [place] [address] PCP - General Nurse Practitioner Family 05/09/16 documented as of this encounter
--- OUTSIDE RECORDS SUMMARY | 2024-10-14 11:32 | XMS_ITS | Encounter Summary ---
Author Organization [facility] Address [address] [place] [address]. [place] [address] [place] [address] Care Team Providers Care Timber Poisoner Name Role Phone Magaly Ribeiro [facility] Primary Care Provider [phone] Reason for Visit * Reason Comments Diarrhea 2 weeks ago sick- di arrhea, fever, chills- can't eat without stomach no hurting and still has diarrhea, burning in the stomach and no appetite Encounter Details Date Type Department Care Team (Late st Contact Info) Description 04/05/2021 2:20 PM CDT Office Visit [facility] [address] [place] [address] Magaly Ribeiro [facility] [address] [place] [phone] Diarrhea (2 weeks ago sick- diarrhea, fever, chills- can't eat without stomach no hurting and still has diarrhea, burning in the stomach and no appetite) Social History Tobacco Use Types Packs/Day Years [...] PM CDT documented as of this encounter Last Filed Vital Signs Vital Sign Reading Time Taken Comments Blood Pressure 124/88 04/05/2021 2:22 PM CDT Pulse 80 04/05/2021 2:52 PM CDT Temperature 36 ??C (96.8 ??F) 04/05/2021 2:22 PM CDT Respiratory Rate 14 04/05/2021 2:22 PM CDT Oxygen Saturation 98% 04/05/2021 2:22 PM CDT Inhaled Oxygen Concentration - - Weight 66.9 kg (147 lb 8 oz) 04/05/2021 2:22 PM CDT Height 174 cm (5' 8.5 ) 04/05/2021 2:22 PM CDT Body Mass Index 22.1 04/05/2021 2:22 PM CDT documented in this encounter Patient Instructions * Patient Instructions* VALORIE Malone - 04/05/2021 2:20 PM CDT We will hold off stools studies for now If diarrhea occurs tomorrow notify me Start famotidine 20 mg twice daily Stay hydrated, good water intake Probiotic can be considered as well Differential reviewed today, post viral seems most likely documented in this encounter Progress Notes * VALORIE Malone - 04/05/2021 2:20 PM CDTSummary: diarrhea Evelyn Oden is a 20-year-old female patient. Reason for Visit: Diarrhea (2 weeks ago sick- diarrhea, fever, chills- can't eat without stomach no hurting and stillhas diarrhea, burning in the stomach and no appetite) History of Present Illness: Evelyn is here for GI concerns. Two weeks ago today she had fever, chills, fatigue, abdominal pain after eating and frequent diarrhea stools. She stopped having fever after the first few days. She does not have pain unless she eats. She feels pain no matter what she eats or how much. Diarrhea continues 1-2 times daily now except today. She had a formed stool today. Prior stools were watery exceptone day over the weekend. Diarrhea was much more frequent at the beginning. Never saw blood or mucus. Some heartburn but denies reflux into her throat or mouth. She continues to feel fatigue and no appetite. Down 5 or 6 pounds. She only ate a small granola bar this am and carrots this afternoon. She denies having nausea or vomiting. The pain is mostly epigastric, ache or burn quality. 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 She is familiar with C diff and never felt suspicious she was infected. Denies any other family members with similar. Her older sister's family had a viral GI illness 4+ weeks ago but she did not go into their home at all. No exposure to reptiles or farm animals. Her parents do have chickens. Brother with crohn's disease. Leaving for the [facility] on 04/15/21. ROS: Review of Systems Constitutional: Positive for weight loss (down 5# in 2 weeks). Negative for chills and fever (resolved). Respiratory: Negative for cough and shortness of breath. Vaccinated for COVID-19 Cardiovascular: Negative for chest pain. Gastrointestinal: Positive for abdominal pain, diarrhea and heartburn. Negative for blood in stool,constipation, nausea and vomiting. Genitourinary: Negative for dysuria and hematuria. Good output Musculoskeletal: Positive for back pain (at night). Neurological: Positive for headaches. Psychiatric/Behavioral: The patient is nervous/anxious. Medications: Current Outpatient Medications: ??? drospirenone-ethinyl estradiol 3-0.03 MG tablet, TAKE 1 ACTIVE TABLET BY MOUTH X 72 DAYS THEN ONE PLACEBO PILL X 4 DAYS FOR 84 DAYS, Disp: , Rfl: ??? famotidine 20 MG tablet, Take 1 tablet (20 mg total) by mouth 2 (two) times daily., Disp: 60 tablet, Rfl: 0 No Known Allergies Past Medical History: Diagnosis Date ??? Streptococcal pharyngitis 2016 History reviewed. No pertinent surgical history. Social History Tobacco Use ??? Smoking status: [...] ??? PGF ??? Sister Alive Filed Vitals: 04/05/21 1422 04/05/21 1452 BP: 124/88 Pulse: 110 80 Resp: 14 Temp: 96.8 ??F (36 ??C) SpO2: 98% Weight: 66.9 kg (147 lb 8 oz) Height: 5' 8.5 (1.74 m) Body mass index is 22.1 kg/m??. Physical Exam: Physical Exam Vitals reviewed. Constitutional: General: She is not in acute distress. Appearance: She is normal weight. She is not ill-appearing. Comments: Healthy appearing 20 year old HENT: Head: Normocephalic. Right Ear: Hearing normal. Left Ear: Hearing normal. Mouth/Throat: Comments: Mask in place Cardiovascular: Rate and Rhythm: Normal rate and regular rhythm. Heart sounds: No murmur. Pulmonary: Effort: Pulmonary effort is normal. No respiratory distress. Breath sounds: No stridor. No wheezing or rhonchi. Abdominal: General: Bowel sounds are normal. There is no distension. Palpations: Abdomen is soft. There is no mass. Tenderness: There is abdominal tenderness. Hernia: No hernia is present. Comments: Tenderness is mild and diffuse, more noticeable to epigastric region Musculoskeletal: Cervical back: Neck supple. Skin: General: Skin is warm and dry. Neurological: General: No focal deficit present. Mental Status: She is alert and oriented to person, place, and time. Mental status is at baseline. Cranial Nerves: No cranial nerve deficit. Motor: No weakness. Gait: Gait normal. Psychiatric: Mood and Affect: Mood normal. Behavior: Behavior normal. Labs: will be considered Diagnoses/Impression: Encounter Diagnose(s) ICD-10-CM ICD-9-CM SNOMED CT(R) 1. Epigastric pain R10.13 789.06 EPIGASTRIC PAIN famotidine 20 MG tablet 2. Diarrhea, unspecified type R19.7 787.91 DIARRHEA Recommendations and Plan: Patient Instructions We will hold off stools studies for now If diarrhea occurs tomorrow notify me Start famotidine 20 mg twice daily Stay hydrated, good water intake Probiotic can be considered as well Differential reviewed today, post viral seems most likely VALORIE MALONE Cosigned by Figueroa Brown MD at 04/05/2021 7:33 PM CDT documented in this encounter Plan of Treatment Not on file documented as of this encounter Visit Diagnoses Diagnosis Epigastric pain- Primary Abdominal pain, epigastric Diarrhea, unspecified type documented in this encounter Administered Medications Administered Medications Medication Order MAR Action Action Date Dose Rate Site Tuberculin Given 01/19/2004 documented in this encounter Care Teams Timber Poisoner Relationship Specialty Start Date End Date Magaly Ribeiro FNP [address] [place] [address] [place] [address] PCP - General Nurse Practitioner Family 05/09/16 documented as of this encounter
--- OUTSIDE RECORDS SUMMARY | 2024-10-14 11:32 | XMS_ITS | Encounter Summary ---
Author Organization [facility] Address [address] [place] [address]. [place], [place] [id number] [place] [address] Care Team Providers Care Mortgage Processing Manager Name Role Phone Magaly Ribeiro Primary Care Provider [phone] Encounter Details Date Type Department Care Team [...] on filedocumented in this encounter Care Teams Mortgage Processing Manager Relationship Specialty Start Date End Date Magaly Ribeiro FNP [address] [place] [address] [place] [address] PCP - General Nurse Practitioner Family 05/09/16 documented as of this encounter
--- OUTSIDE RECORDS SUMMARY | 2024-10-14 11:32 | XMS_ITS | Encounter Summary ---
Author Organization [facility] Address [address] [place] [address]. [place], [place] [address] [place] [address] Care Team Providers Care Jail Officer Name Role Phone Magaly Ribeiro Primary Care Provider [phone] Encounter Details Date Type Department Care Team (Latest Contact Info) Description 04/14/2021 Travel Social History Tobacco Use Types Packs/Day [...] documented as of this encounter Care Teams Jail Officer Relationship Specialty Start Date End Date Magaly Ribeiro FNP [address] [place] [address] [place] [address] PCP - General Nurse Practitioner Family 05/09/16 documented as of this encounter
--- OUTSIDE RECORDS SUMMARY | 2024-10-14 11:32 | XMS_ITS | Encounter Summary ---
Author Organization [facility] Address [address] [place] [address]. [place], [place] [address] [place] [address] Care Team Providers Care Lime Supervisor Name Role Phone Magaly Ribeiro Primary Care Provider [phone] Encounter Details Date Type Department Care Team (Latest Contact Info) Description 07/08/2020 Scan HEALTH INFO [facility] Scanned, Documents Social [...] on filedocumented in this encounter Care Teams Lime Supervisor Relationship Specialty Start Date End Date Magaly Ribeiro FNP [address] [place] [address] [place] [address] PCP - General Nurse Practitioner Family 05/09/16 documented as of this encounter
--- OUTSIDE RECORDS SUMMARY | 2024-10-14 11:32 | XMS_ITS | Encounter Summary ---
Author Organization [facility] Address [address] [place] [address]. [place], [place] [address] [place] [address] Care Team Providers Care Awning Craftsperson Name Role Phone Magaly Ribeiro Primary Care Provider [phone] Reason for Visit * Reason Comments Imm/Inj walk in flu vaccine Encounter Details Date Type Department Care Team (Latest Contact Info) Description 07/08/2020 2:00 PM CDT Allied Health/Nurse Visit [address] [place] [address] Imm/Inj (walk in flu vaccine) Social History Tobacco Use Types Packs/Day Years [...] influenza documented in this encounter Care Teams Awning Craftsperson Relationship Specialty Start Date End Date Magaly Ribeiro FNP [address] [place] [address] [place] [address] PCP - General Nurse Practitioner Family 05/09/16 documented as of this encounter
--- OUTSIDE RECORDS SUMMARY | 2024-10-14 11:32 | XMS_ITS | Encounter Summary ---
Author Organization [facility] Address [address] [place] [address]. [place], [place] [address] [place] [address] Care Team Providers Care Business Analytics Specialist Name Role Phone Magaly Ribeiro Primary Care Provider Encounter Details Date Type Department Care Team [...] on filedocumented in this encounter Care Teams Business Analytics Specialist Relationship Specialty Start Date End Date Magaly Ribeiro FNP [address] [place] [address] [place] [address] PCP - General Nurse Practitioner Family 05/09/16 documented as of this encounter
--- OUTSIDE RECORDS SUMMARY | 2024-10-14 11:32 | XMS_ITS | Encounter Summary ---
Author Organization [facility] Address [address] [place] [address]. [place], [place] [address] [place] [address] Care Team Providers Care Semiconductor Processing Group Leader Name Role Phone Magaly Ribeiro Primary Care Provider [phone] Encounter Details Date Type Department Care Team (Late st Contact Info) Description 03/18/2023 Orders Only [facility] [address] [place] [id number] Raysa Mehta FNP [address] [place] [id number] Social History Tobacco Use Types Packs/Day Years [...] on file documented as of this encounter Progress Notes * VALORIE Ward - 03/18/2023 8:16 PM CDT Patient travelling and requests medication for motion sickness. documented in this encounter Plan of Treatment Not on file documented as of this encounter Visit Diagnoses Diagnosis Motion sickness, initial encounter- Primary documented in this encounter Care Teams Semiconductor Processing Group Leader Relationship Specialty Start Date End Date Magaly Ribeiro FNP [address] [place] [address] [place] [address] PCP - General Nurse Practitioner Family 05/09/16 documented as of this encounter
--- OUTSIDE RECORDS SUMMARY | 2024-10-14 11:32 | XMS_ITS | Encounter Summary ---
Author Organization [facility] Address [address] [place] [address]. [place] [address] [place] [address] Care Team Providers Care Silviculture Professor Name Role Phone Magaly Ribeiro EEG TECHNOLOGIST Primary Care Provider [phone] Reason for Referral * Imaging (Emergency) - Pending Review Specialty Diagnoses / Procedures Referred By Giovanni echavarria Referred To Contact RADIOLOGY Procedures US OB <14WKS TA+TV US OB TRANSVAG Pedro Hensley MD [address] [place] [address] Phone: tel: fax: Referral ID Status Reason Start Date Expiration Date V isits Requested Visits Authorized [id number] Pending Review 08/30/2024 08/30/2025 1 1 RER RAGS Reason for Visit * Reason Comments Vaginal Bleeding Encounter Details Date Type Department Care Team (Late st Contact Info) Description 08/30/2024 11:02 AM LABORER RAGS - 08/30/2024 3:40 PM LABORER RAGS Emergency [facility] Emergency Room [address] [place] [address] Pedro Hensley MD [address] [place] [address] Vaginal Bleeding Discharge Disposition: Home or Self [...] Sign Reading Time Taken Comments Blood Pressure 130/87 08/30/2024 2:30 PM LABORER RAGS Pulse 81 08/30/2024 11:06 AM LABORER RAGS Temperature 36.8 ??C (98.3 ??F) 08/30/2024 11:[address] Respiratory Rate 20 08/30/2024 11:06 AM LABORER RAGS Oxygen Saturation 98% 08/30/2024 2:30 PM LABORER RAGS Inhaled Oxygen Concentration - - Weight 68 kg (150 lb) 08/30/2024 11:06 AM LABORER RAGS Height 177.8 cm (5' 10 ) 08/30/2024 11:06 AM LABORER RAGS Body Mass Index 21.52 08/30/2024 11:06 AM LABORER RAGS documented in this encounter Discharge Instructions * Discharge Instructions* Pedro Hensley MD - 08/30/2024 3:16 PM LABORER RAGS Pelvic rest until follow up. Return to ER for any worsening symptoms. RER RAGS * Attachments The following attachments cannot be sent through Care Everywhere. * Bleeding in early (Haitian) documented in this encounter Medications at Time [...] each 11/02/2023 documented as of this encounter ED Notes * Pedro Hensley MD - 08/30/2024 3:08 PM CST Chief Complaint Chief Complaint Patient presents with Vaginal Bleeding History of Present Illness Evelyn is a 24 year old G1PO at approximately 7 weeks who presents to ER with a 3 day history of spotting. Patient reported 3 days ago she had an episode of cramping and then light spotting. Bleedinghas continued with wiping. She has worn a pad but nothing has been on it. She is concerned because she has 6 sisters and all of them had have fertility issues. Her LMP was 07/14/24. She stopped birthcontrol in May of last year and her periods had been irregular. Her periods are usually only 3 weeks apart. Patient denies fever, chills, cough, or other symptoms. Medical History ALLERGIES: Review of patient's allergies indicates: No Known Allergies MEDICATIONS: Prior to Admission medications Medication Sig Start Date End Date Taking? Authorizing Provider ciprofloxacin (CILOXAN) 0.3 % ophthalmic solution Administer 1 drop, every 2 hours, while awake, for 2 days. Then 1 drop, every 4 hours, while awake, for the next 5 days. 11/02/23 VALORIE Ward FAMOTIDINE 20 MG tablet TAKE 1 TABLET BY MOUTH TWICE A DAY Patient taking differently: Take 1 tablet (20 mg total) by mouth 2 (two) times daily as needed. 05/02/21 VALORIE Malone levonorgestrel-ethinyl estradiol (SEASONALE) 0.15-0.03 MG tablet Take 1 tablet by mouth daily. 05/14/23 Default History Genericprovider methylPREDNISoloneKM (MEDROL DOSEPAK) 4 MG tablet 6 TABLETS ON DAY ONE, 5 TABLETS DAY TWO, 4 TABLETS DAY THREE, 3 TABLETS DAY FOUR, 2 TABLETS DAY FIVE, AND 1 TABLET DAY SIX 11/02/23 VALORIE Ward PAST MEDICAL HISTORY: Past Medical History: Diagnosis Date Streptococcal pharyngitis 2016 PAST SURGICAL HISTORY: History reviewed. No pertinent surgical history. FAMILY HISTORY: Family History Problem Relation Name Age of Onset Hyperlipidemia Mother Hypertension Mother Hypertension Father Hypertension Sister Raysa Mehta Crohns Disease Brother Diabetes Paternal Grandfather Heart Disease Paternal Grandfather Hyperlipidemia Paternal Grandfather Hypertension Paternal Grandfather Kidney Disease Paternal Grandfather Hypertension Sister SOCIAL HISTORY: Social History Tobacco Use Smoking status: Never Smokeless tobacco: Never Substance Use Topics Alcohol use: Yes Drug use: Never Review of Systems Review of Systems Physical Exam Filed Vitals: 08/30/24 1230 08/30/24 1300 08/30/24 1400 08/30/24 1430 BP: 133/89 121/82 132/79 130/87 Pulse: Resp: Temp: TempSrc: SpO2: 100% 99% 99% 98% Weight: Height: Physical Exam Vitals and nursing note reviewed. Constitutional: General: She is not in acute distress. Appearance: She is normal weight. She is not ill-appearing or diaphoretic. HENT: Head: Normocephalic and atraumatic. Right Ear: Tympanic membrane, ear canal and external ear normal. Left Ear: Tympanic membrane, ear canal and external ear normal. Nose: No congestion or rhinorrhea. Mouth/Throat: Mouth: Mucous membranes are moist. Pharynx: Oropharynx is clear. Eyes: Extraocular Movements: Extraocular movements intact. Conjunctiva/sclera: Conjunctivae normal. Pupils: Pupils are equal, round, and reactive to light. Neck: Vascular: No carotid bruit. Cardiovascular: Rate and Rhythm: Normal rate and regular rhythm. Heart sounds: Normal heart sounds. No murmur heard. Pulmonary: Effort: No respiratory distress. Breath sounds: No wheezing, rhonchi or rales. Chest: Chest wall: No tenderness. Abdominal: General: Abdomen is flat. Bowel sounds are normal. There is no distension. Palpations: Abdomen is soft. There is no mass. Tenderness: There is no abdominal tenderness. There is no right CVA tenderness, left CVA tenderness, guarding or rebound. Hernia: No hernia is present. Musculoskeletal: General: No swelling, tenderness, deformity or signs of injury. Cervical back: No rigidity or tenderness. Right lower leg: No edema. Left lower leg: No edema. Lymphadenopathy: Cervical: No cervical adenopathy. Skin: Coloration: Skin is not jaundiced or pale. Findings: No erythema or rash. Neurological: General: No focal deficit present. Mental Status: She is alert and oriented to person, place, and time. Mental status is at baseline. Psychiatric: Mood and Affect: Mood normal. Behavior: Behavior normal. Diagnostic Studies / Procedures ELECTROCARDIOGRAMS: No results found for this visit on 08/30/24. LABORATORY STUDIES: Results for orders placed or performed during the hospital encounter of 08/30/24 CBC W/DIFF AUTOMATED Result Value Ref Range WBC 9.71 4.50 - 11.00 x10'3/uL RBC 4.90 4.20 - 5.40 x10'6/uL HGB 14.5 12.0 - 16.0 G/DL HCT 42.0 38.0 - 48.0 % MCV 85.7 81.0 - 99.0 FL MCH 29.6 27.0 - 31.0 PG MCHC 34.5 32.0 - 36.0 G/DL RDW 13.2 11.5 - 14.5 % PLT 214 130 - 400 x10'3/uL MPV 10.8 9.3 - 12.2 FL CBC COMMENT AUTOMATED RBC MORPHOLOGY AND PLATELET EVALUATION NORMAL NEUTROPHILS % 69.3 % LYMPHOCYTES % 22.3 % MONOCYTES % 7.2 % EOSINOPHILS 0.3 % BASOPHILS 0.6 % IMMATURE GRANS % 0.3 % NRBC % 0.0 % ABS. NEUTROPHILS TOTAL 6.72 1.80 - 7.70 x10'3/uL ABS. LYMPHOCYTES 2.17 1.00 - 4.80 x10'3/uL ABS. MONOCYTES 0.70 0.24 - 0.86 x10'3/uL ABS. EOSINOPHILS 0.03 (L) 0.04 - 0.36 x10'3/uL ABS. BASOPHILS 0.06 0.01 - 0.08 x10'3/uL ABS. IMMATURE GRANULOCYTES 0.03 0.00 - 0.49 x10'3/uL ABS. NUCLEATED RBC'S 0.00 0.00 - 0.01 x10'3/uL COMPREHENSIVE METABOLIC PANEL Result Value Ref Range GLUCOSE 96 70 - 99 MG/DL BUN 7 7 - 18 MG/DL CREATININE S/P/B 0.70 0.55 - 1.02 MG/DL SODIUM S/P/B 138 136 - 145 MMOL/L POTASSIUM S/P/B 3.6 3.5 - 5.1 MMOL/L CHLORIDE S/P/B 103 100 - 108 MMOL/L CO2 25.1 21 - 32 MMOL/L CALCIUM S/P/B 8.5 8.5 - 10.1 MG/DL BILIRUBIN TOTAL S/P/B 1.8 (H) 0.2 - 1.2 MG/DL TOTAL PROTEIN S/P/B 7.3 6.4 - 8.2 G/DL ALBUMIN S/P/B 3.9 3.4 - 5.0 G/DL AST 23 15 - 37 U/L ALT 42 14 - 55 U/L ALKALINE PHOSPHATASE S/P/B 58 50 - 136 U/L ANION GAP 9.9 5 - 15 MMOL/L BUN CREATININE RATIO 10.0 6 - 26 A/G RATIO 1.1 1.0 - 2.0 RATIO GFR ESTIMATE >90 >90 ML/MIN/1.73 M2 URINALYSIS Result Value Ref Range COLOR (U) YELLOW TRANSPARENCY CLEAR SPECIFIC GRAVITY (U) 1.015 1.002 - 1.030 U PH 7.0 4.5 - 8.0 LEUKOCYTES (U) NEGATIVE NEGATIVE NITRITES NEGATIVE NEGATIVE PROTEIN RANDOM (U) 1+ (A) NEGATIVE GLUCOSE (U) NEGATIVE NEGATIVE KETONES MG/DL (U) 1+ (A) NEGATIVE UROBILINOGEN NORMAL NORMAL EU/DL BILIRUBIN (U) NEGATIVE NEGATIVE BLOOD (U) 3+ (A) NEGATIVE RBC/HPF 5-10 /HPF EPI/HPF 0-5 /HPF MUCUS 1+ Quantitative HCG Result Value Ref Range HCG QUANTITATIVE 58,287 MIU/ML TYPE AND SCREEN Result Value Ref Range ABO/RH O POSITIVE ANTIBODY SCREEN NEGATIVE SAMPLE EXPIRATION 09/02/2024,2359 IMAGING STUDIES US OB <14WKS TA+TV Final Result by User, [id number] (08/30 1350) [facility] [address] [place] [address] Examination: US OB <14WKS TA+TV Exam time: 08/30/2024 1:06 PM Indication: . Last menstrual period 07/14/2024 for gestational age 6 weeks 5 days and due date 04/20/2025. Vaginal bleeding since Sunday. Evaluate for viability. Comparison: None Findings: Transabdominal plus transvaginal pelvic OB ultrasound performed with grayscale and color Doppler and spectral Doppler and heart tones. Single intrauterine with gestational sac, yolk sac, and fetus is identified. The heart rate is 164 bpm. The crown-rump length is 0.58 cm. The mean sac diameter is 2.3 cm. Couple small foci of subchorionic hematoma are identified. Largest is 1.9 cm. The maternal uterus is 8.9 x 6.4 x 4.6 cm. The cervix is closed. No pelvic free fluid. Corpus luteal cyst is present in the left ovary. No left ovarian torsion. The right ovary is not seen due to bowel gas. IMPRESSION: Viable single intrauterine with average ultrasound age of 6 weeks 3 days for due date 04/22/2025. This is very similar to the dates by LMP. Couple small foci of subchorionic hematoma. Cervix remains closed. Referred By: Interpreted By: Augusto Lovett MD, 08/30/2024 1:44 PM ED Course / Medical Decision Making Medical Decision Making Evelyn is a 24 year old G1PO at approximately 7 weeks who presents to ER with a 3 day history of spotting. Ultrasound did show a couple of small subchorionic hemorrhages. Case was discussed with Dr. Gema Ashby who recommended pelvic rest until follow up. Patient was told to call office on Sunday to make appointment. Return to ER for any worsening symptoms. Problems Addressed: Subchorionic hemorrhage in first trimester (HHS/HCC): acute illness or injury with systemic symptoms Amount and/or Complexity of Data Reviewed Labs: ordered. Decision-making details documented in ED Course. Radiology: ordered. Decision-making details documented in ED Course. Risk OTC drugs. Clinical Impression Subchorionic hemorrhage in first trimester (HHS/HCC) (Primary) Disposition: Discharge Pedro Hensley MD 08/30/24 1543 RER RAGS * Raysa Espinosa RN - 08/30/2024 11:06 AM CST PT HERE C/O VAGINAL BLEEDING AFTER A POSITIVE . RER RAGS documented in this encounter Plan of Treatment Not on file documented as of this encounter Procedures Procedure Name Priority Date/Time Associated Diagnosis Comments US OB <14WKS TA+TV STAT 08/30/2024 1: 41 PM LABORER RAGS HC URINALYSIS AUTO W/O MICRO STAT 08/30/2024 11:55 AM LABORER RAGS TYPE & SCREEN STAT 08/30/2024 11:17 AM LABORER RAGS COMPREHENSIVE METABOLIC PANEL STAT 08/30/2024 11:17 AM LABORER RAGS HCG QUANT (SERUM)-CHORIONIC GONADOTROPIN STAT 08/30/2024 11:17 AM LABORER RAGS CBC W/DIFF AUTOMATED STAT 08/30/2024 11:17 AM LABORER RAGS documented in this encounter Results * US OB <14WKS TA+TV (08/30/2024 1:41 PM LABORER RAGS) Anatomical Region Laterality Modality Ultrasound 08/30/2024 1:44 PM LABORER RAGS Impressions 08/30/2024 1:48 PM LABORER RAGS IMPRESSION: Viable single intrauterine with average ultrasound age of 6 weeks 3 days for due date 04/22/2025. ??This is very similar to the dates by LMP. Couple small foci of subchorionic hematoma. Cervix remains closed. Referred By: ?? Interpreted By: Augusto Lovett MD, 08/30/2024 1:44 PM Narrative 08/30/2024 1:[address] [facility] [address] [place] [address] Examination: US OB <14WKS TA+TV Exam time: [...] Procedure Note Augusto Lovett MD - 08/30/[address] [address] Examination: US OB <14WKS TA+TV Exam time: 08/30/2024 1:06 PM Indication: . Last menstrual period 07/14/2024 for gestationalage 6 weeks 5 days and due date 04/20/2025. Vaginal bleeding sinceWe. Evaluate for viability. Comparison: None Findings: Transabdominal [...] [facility] Couple small foci of subchorionic hematoma. Cervix remains closed. Referred By: Interpreted By: Augusto Lovett MD, 08/30/2024 1:44 PM Pedro Hensley MD ULTRASOUND Final Result * (ABNORMAL) URINALYSIS (08/30/2024 11:55 AM LABORER RAGS) COLOR (U) YELLOW 08/30/2024 12:[address] [facility] TRANSPARENCY CLEAR 08/30/2024 12:[address] [facility] SPECIFIC GRAVITY (U) 1.015 1.002 - 1.030 08/30/2024 12:[address] [facility] U PH 7.0 4.5 - 8.0 08/30/2024 12:[address] [facility] LEUKOCYTES (U) NEGATIVE NEGATIVE 08/30/2024 12:[address] [facility] NITRITES NEGATIVE NEGATIVE 08/30/2024 12:[address] [facility] PROTEIN RANDOM (U) 1+(A) NEGATIVE 08/30/2024 12:[address] [facility] GLUCOSE (U) NEGATIVE NEGATIVE 08/30/2024 12:[address] [facility] KETONES MG/DL (U) 1+(A) NEGATIVE 08/30/2024 12:[address] [facility] UROBILINOGEN NORMAL NORMAL EU/DL 08/30/2024 12:[address] [facility] BILIRUBIN (U) NEGATIVE NEGATIVE 08/30/2024 12:[address] [facility] BLOOD (U) 3+(A) NEGATIVE 08/30/2024 12:[address] [facility] RBC/HPF 5-10 /HPF 08/30/2024 12:23 PM LABORER RAGS [facility] EPI/HPF 0-5 /HPF 08/30/2024 12:23 PM LABORER RAGS [facility] MUCUS 1+ 08/30/2024 12:23 PM LABORER RAGS [facility] URINE SPECIMEN OBTAINED BY CLEAN CATCH PROCEDURE / Unknown 08/30/2024 11:55 AM LABORER RAGS us Pedro Hensley MD URINE ORDERABLES Final Result Performing Organization Address [facility] Co de Phone Number [facility] [address] [place] [address], * TYPE AND SCREEN (08/30/2024 11:17 AM LABORER RAGS) ABO/RH O POSITIVE 08/30/2024 12:11 PM LABORER RAGS [facility] ANTIBODY SCREEN NEGATIVE 08/30/2024 12:38 PM LABORER RAGS [facility] SAMPLE EXPIRATION 09/02/2024,2 359 08/30/2024 12:11 PM LABORER RAGS [facility] 08/30/2024 11:1 7 AM LABORER RAGS us Pedro Hensley MD BLOOD BANK TEST ORDERABLES Final Result Performing Organization Address [facility] de Phone Number [facility] [address] [place] [address], [place] [phone] * Quantitative HCG (08/30/2024 11:17 AM LABORER RAGS) HCG QUANTITATIVE 58,287 MIU/ML 08/30/20 12:13 PM LABORER RAGS [facility] Comment: WEEKS OF ? [...] 2 - 3 MONTHS ?10,000 - 100,000 08/30/2024 11:1 7 AM LABORER RAGS Pedro Hensley MD LABORATORY Final Result [facility] [address] [place] [address], [place] [phone] * (ABNORMAL) COMPREHENSIVE METABOLIC PANEL (08/30/2024 11:17 AM LABORER RAGS) GLUCOSE 96 70 - 99 MG/DL 08/30/2024 12:[address] [facility] BUN 7 7 - 18 MG/DL 08/30/2024 12:[address] [facility] CREATININE S/P/B 0.70 0.55 - 1.02 MG/DL 08/30/2024 12:[address] [facility] SODIUM S/P/B 138 136 - 145 MMOL/L 08/30/2024 12:[address] [facility] POTASSIUM S/P/B 3.6 3.5 - 5.1 MMOL/L 08/30/2024 12:[address] [facility] CHLORIDE S/P/B 103 100 - 108 MMOL/L 08/30/2024 12:[address] [facility] CO2 25.1 21 - 32 MMOL/L 08/30/2024 12:[address] [facility] CALCIUM S/P/B 8.5 8.5 - 10.1 MG/DL 08/30/2024 12:[address] [facility] BILIRUBIN TOTAL S/P/B 1.8(H) 0.2 - 1.2 MG/DL 08/30/2024 12:[address] [facility] Comment: THIS ASSAY IS NOT RECOMMENDED FOR PATIENTS UNDERGOING TREATMENT WITH ELTROMBOPAG DUE TO THE POTENTIAL FOR FALSELY ELEVATED RESULTS. TOTAL PROTEIN S/P/B 7.3 6.4 - 8.2 G/DL 08/30/2024 12:[address] [facility] ALBUMIN S/P/B 3.9 3.4 - 5.0 G/DL 08/30/2024 12:[address] [facility] AST 23 15 - 37 U/L 08/30/2024 12:[address] [facility] ALT 42 14 - 55 U/L 08/30/2024 12:[address] [facility] ALKALINE PHOSPHATASE S/P/B 58 50 - 136 U/L 08/30/2024 12:[address] [facility] ANION GAP 9.9 5 - 15 MMOL/L 08/30/2024 12:[address] [facility] BUN CREATININE RATIO 10.0 6 - 26 08/30/2024 12:[address] [facility] A/G RATIO 1.1 1.0 - 2.0 RATIO 08/30/2024 12:[address] [facility] GFR ESTIMATE >90 >90 ML/MIN/1.7 3 M2 08/30/2024 12:[address] [facility] Comment: NOTE: eGFR is not calculated for patients <18 years of age. This is an estimated GFR calculation using the new CKD EPI creatinine equation without race and so does not require a correction factor for race. This estimated GFR should not be used for calculating drug doses. 08/30/2024 11:1 7 AM LABORER RAGS us Pedro Hensley MD LABORATORY Final Result [facility] [address] [place] [address], [place] [phone] * (ABNORMAL) CBC W/DIFF AUTOMATED (08/30/2024 11:17 AM LABORER RAGS) WBC 9.71 4.50 - 11.00 x10'3/uL 08/30/2024 11:[address] [facility] RBC 4.90 4.20 - 5.40 x10'6/uL 08/30/2024 11:[address] [facility] HGB 14.5 12.0 - 16.0 G/DL 08/30/2024 11:[address] [facility] HCT 42.0 38.0 - 48.0 % 08/30/2024 11:[address] [facility] MCV 85.7 81.0 - 99.0 FL 08/30/2024 11:[address] [facility] MCH 29.6 27.0 - 31.0 PG 08/30/2024 11:[address] [facility] MCHC 34.5 32.0 - 36.0 G/DL 08/30/2024 11:[address] [facility] RDW 13.2 11.5 - 14.5 % 08/30/2024 11:[address] [facility] PLT 214 130 - 400 x10'3/uL 08/30/2024 11:[address] [facility] MPV 10.8 9.3 - 12.2 FL 08/30/2024 11:[address] [facility] CBC COMMENT AUTOMATED RBC MORPHOLOGY AND PLATELET EVALUATION NORMAL 08/30/2024 11:[address] [facility] NEUTROPHILS % 69.3 % 08/30/2024 11:[address] [facility] LYMPHOCYTES % 22.3 % 08/30/2024 11:[address] [facility] MONOCYTES % 7.2 % 08/30/2024 11:[address] [facility] EOSINOPHILS 0.3 % 08/30/2024 11:[address] [facility] BASOPHILS 0.6 % 08/30/2024 11:[address] [facility] IMMATURE GRANS % 0.3 % 08/30/20 11:[address] [facility] NRBC % 0.0 % 08/30/2024 11:[address] [facility] ABS. NEUTROPHILS TOTAL 6.72 1.80 - 7.70 x10'3/uL 08/30/2024 11:[address] [facility] ABS. LYMPHOCYTES 2.17 1.00 - 4.80 x10'3/uL 08/30/2024 11:[address] [facility] ABS. MONOCYTES 0.70 0.24 - 0.86 x10'3/uL 08/30/2024 11:[address] [facility] ABS. EOSINOPHILS 0.03(L) 0.04 - 0.36 x10'3/uL 08/30/2024 11:[address] [facility] ABS. BASOPHILS 0.06 0.01 - 0.08 x10'3/uL 08/30/2024 11:[address] [facility] ABS. IMMATURE GRANULOCYTES 0.03 0.00 - 0.49 x10'3/uL 08/30/2024 11:25 AM LABORER RAGS [facility] ABS. NUCLEATED RBC'S 0.00 0.00 - 0.01 x10'3/uL 08/30/2024 11:25 AM LABORER RAGS [facility] 08/30/2024 11:1 7 AM LABORER RAGS us Pedro Hensley MD LABORATORY Final Result [facility] [address] [place] [address], documented in this encounter Visit Diagnoses Diagnosis Subchorionic hemorrhage in first trimester (HHS/HCC)- Primary documented in this encounter Care Teams Silviculture Professor Relationship Specialty Start Date End Date Magaly Ribeiro FNP [address] [place] [address] [place] [address] PCP - General Nurse Practitioner Family 05/09/16 documented as of this encounter
--- OUTSIDE RECORDS SUMMARY | 2024-10-14 11:32 | XMS_ITS | Encounter Summary ---
Author Organization [facility] Address [address] [place] [address]. [place], [place] [address] [place] [address] Care Team Providers Care Drosser Name Role Phone Magaly Ribeiro Primary Care Provider [phone] Encounter Details Date Type Department Care Team (Latest Contact Info) Description 11/02/2023 Travel Social History Tobacco Use Types Packs/Day [...] on filedocumented in this encounter Care Teams Drosser Relationship Specialty Start Date End Date Magaly Ribeiro FNP [address] [place] [address] [place] [id number] PCP - General Nurse Practitioner Family 05/09/16 documented as of this encounter
--- OUTSIDE RECORDS SUMMARY | 2024-10-14 11:32 | XMS_ITS | Encounter Summary ---
Author Organization [facility] Address [address] [place] [address]. [place], [place] [address] [place] [address] Care Team Providers Care Fishing Lure Assembler Name Role Phone Magaly Ribeiro Primary Care Provider [phone] Encounter Details Date Type Department Care Team (Late st Contact Info) Description 08/06/2018 Abstract [place] [facility] Conversion Md, Generic Conversion, Social History [...] on filedocumented in this encounter Care Teams Fishing Lure Assembler Relationship Specialty Start Date End Date Magaly Ribeiro FNP [address] [place] [address] [place] [address] PCP - General Nurse Practitioner Family 05/09/16 documented as of this encounter
--- OUTSIDE RECORDS SUMMARY | 2024-10-14 11:32 | XMS_ITS | Encounter Summary ---
Author Organization [facility] Address [address] [place] [address]. [place] [address] [place] [address] Care Team Providers Care Surgical Attendant Name Role Phone Magaly Ribeiro TOOL SHAPER SETUP OPERATOR Primary Care Provider [phone] Encounter Details Date Type Department Care Team (Late st Contact Info) Description 02/10/2017 Abstract [facility] Clinics Conversion Md, Generic Conversion, Social [...] Sign Reading Time Taken Comments Blood Pressure 118/74 02/10/2017 9:55 AM CDT Pulse 82 02/10/2017 9:55 AM CDT Temperature - - Respiratory Rate - - Oxygen Saturation - - Inhaled Oxygen Concentration - - Weight 60 kg (132 lb 6 oz) 02/10/2017 9:55 AM CD T Height - - Body Mass Index - - documented in this encounter Plan of Treatment Not on file documented as of this encounter Procedures Procedure Name Priority Date/Time Associated Diagnosis Comments HETEROPHILE ANTIBODIES,SCREEN Routine 02/10/2017 10:16 AM CDT STREP A RAPID Routine 02/10/2017 10:15 AM CDT STREP A RAPID Routine 02/10/2017 10:00 AM CDT documented in this encounter Results * HETEROPHILE ANTIBODIES,SCREEN (02/10/2017 10:16 AM CDT) HETEROPHILE ANTIBODIES Negative (QC+) [facility] TO EP[facility] CONVERSION 02/10/2017 10:1 6 AM CDT 02/10/2017 10:16 AM CDT Narrative [facility] TO EPIC CONVERSION - 02/10/2017 10:16 AM CDT This lab was migrated from [facility] and may be missing annotations or result text, please check the Media tab for the most complete results. Radha Caro [facility] Final Result [facility] TO EPIC CONVERSION * STREP A RAPID (02/10/2017 10:15 AM CDT) RAPID STREP TEST Negative(Q C+) [facility] TO EPIC CONVERSION 02/10/2017 10:1 5 AM CDT 02/10/2017 10:15 AM CDT Narrative [facility] TO EPIC CONVERSION - 02/10/2017 10:15 AM CDT This lab was migrated from [facility] and may be missing annotations or result text, please check the Media tab for the most complete results. Radha TAMAYOP MICROBIOLOGY - GENERAL ORDERABLE S Final Result Performing Organization Address City/[facility]/ZIP Co de Phone Number [facility] TO EPIC CONVERSION * STREP A RAPID (02/10/2017 10:00 AM CDT) STREP PYOGENES (GRP A) PCR (BLD) NEGATIVE [facility] T O EPIC CONVERSION Comment:GROUP A MOLECULAR ST REPTOCOCCUS TEST REPORT STATUS not sent [facility] UP TO EPIC CONVERSION lot number [id number] EXP. [facility] TO EPIC CONVERSION Internal Control: passed ME [facility] TO EPIC CONVERSION 02/10/2017 10:0 0 AM CDT 02/10/2017 10:00 AM CDT Narrative [facility] TO EPIC CONVERSION - 02/10/2017 6:04 PM CDT This lab was migrated from [facility] and may be missing annotations or result text, please check the Media tab for the most complete results. Radha EUGENE MICROBIOLOGY - GENERAL ORDERABLE S Final Result [employer] CONVERSION documented in this encounter Visit Diagnoses Not on filedocumented in this encounter Care Teams Surgical Attendant Relationship Specialty Start Date End Date Magaly Ribeiro FNP [address] [place] [address] [place] [address] PCP - General Nurse Practitioner Family 05/09/16 documented as of this encounter
--- OUTSIDE RECORDS SUMMARY | 2024-10-14 11:32 | XMS_ITS | Encounter Summary ---
Author Organization [facility] Address [address] [place] [address]. [place] [address] [place] [address] Care Team Providers Care Physical Therapy Coordinator Name Role Phone Magaly Ribeiro VALORIE Primary Care Provider [phone] Encounter Details Date Type Department Care Team (Late st Contact Info) Description 04/13/2021 Orders Only [facility] [address] [facility] [place] [id number] Raysa Mehta FNP [address] [place] [address] Social History Tobacco Use Types Packs/Day Years [...] PM CDT documented as of this encounter Progress Notes * VALORIE Ward - 04/13/2021 5:00 PM CDT Patient requests order for scopolomine patch for upcoming trip. documented in this encounter Plan of Treatment Not on file documented as of this encounter Visit Diagnoses Diagnosis Motion sickness, initial encounter- Primary documented in this encounter Care Teams Physical Therapy Coordinator Relationship Specialty Start Date End Date Magaly Ribeiro FNP [address] [place] [address] [place] [address] PCP - General Nurse Practitioner Family 05/09/16 documented as of this encounter
--- OUTSIDE RECORDS SUMMARY | 2024-10-14 11:33 | XMS_ITS | Encounter Summary ---
Author Organization [facility] Address [address] [place] [address]. [place], [place] [address] [place] [address] Care Team Providers Care Back Tender Name Role Phone Magaly Ribeiro Primary Care Provider [phone] Encounter Details Date Type Department Care Team (Late st Contact Info) Description 02/11/2013 Abstract [facility] Clinics Conversion Md, Generic Conversion, Social [...] on filedocumented in this encounter Care Teams Back Tender Relationship Specialty Start Date End Date Magaly Ribeiro FNP [address] [place] [address] [place] [address] PCP - General Nurse Practitioner Family 05/09/16 documented as of this encounter
--- OUTSIDE RECORDS SUMMARY | 2024-10-14 11:33 | XMS_ITS | Encounter Summary ---
Author Organization [facility] Address [address] [place] [address]. [place], [place] [address] [place] [address] Care Team Providers Care Cook Night Name Role Phone Magaly Ribeiro Primary Care Provider [phone] Encounter Details Date Type Department Care Team (Late st Contact Info) Description 05/09/2016 Abstract [facility] Conversion Magaly Ribeiro FNP [address] [place] [address] Social History Tobacco Use Types Packs/Day Years Used Date Smoking Tobacco: Never Assessed Comments Unknown Sex and Gender Information Value Date Recorded Sex Assigned at Not on file Legal Sex Female 7:04 PM CDT Gender Identity Not on file Sexual Orientation Not on file documented as of this encounter Last Filed Vital Signs Vital Sign Reading Time Taken Comments Blood Pressure 110/80 05/09/2016 4:12 PM CDT Pulse 84 05/09/2016 4:12 PM CDT Temperature - - Respiratory Rate - - Oxygen Saturation - - Inhaled Oxygen Concentration - - Weight - - Height - - Body Mass Index - - documented in this encounter Plan of Treatment Not on file documented as of this encounter Visit Diagnoses Not on filedocumented in this encounter Care Teams Cook Night Relationship Specialty Start Date End Date Magaly Ribeiro FNP [address] [place] [address] PCP - General Nurse Practitioner Family 05/09/16 documented as of this encounter
--- OUTSIDE RECORDS SUMMARY | 2024-10-14 11:33 | XMS_ITS | Encounter Summary ---
Author Organization [facility] Address [address] [place] [address]. [place], [place] [address] [place] [address] Care Team Providers Care Softlines Supervisor Name Role Phone Magaly Ribeiro Primary Care Provider [phone] Encounter Details Date Type Department Care Team (Late st Contact Info) Description 1998 Abstract [facility] CONVERSION [address] [place] [address] , Generic Conversion, Social History Tobacco Use Types [...] on filedocumented in this encounter Care Teams Softlines Supervisor Relationship Specialty Start Date End Date Magaly Ribeiro FNP [address] [place] [address] [place] [address] PCP - General Nurse Practitioner Family 05/09/16 documented as of this encounter
--- OUTSIDE RECORDS SUMMARY | 2024-10-14 11:33 | XMS_ITS | Encounter Summary ---
Author Organization [facility] Address [address] [place] [address]. [place] [address] [place] [address] Care Team Providers Care Tax Collection Coordinator Name Role Phone GemaMagaly [facility] Primary Care Provider [phone] Encounter Details Date Type Department Care Team (Late st Contact Info) Description 05/29/2016 Abstract [facility] [address] [place] [id number] Raysa Mehta [facility] [address] [place] [address] Social History Tobacco Use Types Packs/Day Years [...] documented as of this encounter Care Teams Tax Collection Coordinator Relationship Specialty Start Date End Date Magaly Ribeiro FNP [address] [place] [address] [place] [address] PCP - General Nurse Practitioner Family 05/09/16 documented as of this encounter
--- OUTSIDE RECORDS SUMMARY | 2024-10-14 11:33 | XMS_ITS | Encounter Summary ---
Author Organization [facility] Address [address] [place] [address]. [place], [place] [address] [place] [address] Care Team Providers Care Sub Arc Operator Name Role Phone Magaly Ribeiro [facility] Primary Care Provider [phone] Encounter Details Date Type Department Care Team (Late st Contact Info) Description 05/29/2016 Abstract [facility] Conversion Raysa Mehta, [address] [place] [address] Social History Tobacco Use Types Packs/Day Years Used Date Smoking Tobacco: Never Assessed Comments Unknown Sex and Gender Information Value Date Recorded Sex Assigned at Not on file Legal Sex Female 7:04 PM CDT Gender Identity Not on file Sexual Orientation Not on file documented as of this encounter Last Filed Vital Signs Vital Sign Reading Time Taken Comments Blood Pressure - - Pulse 88 05/29/2016 4:19 PM CDT Temperature - - Respiratory Rate - - Oxygen Saturation - - Inhaled Oxygen Concentration - - Weight 59.9 kg (132 lb) 05/29/2016 4:19 PM CDT Height - - Body Mass Index - - documented in this encounter Plan of Treatment Not on file documented as of this encounter Procedures Procedure Name Priority Date/Time Associated Diagnosis Comments STREP A RAPID Routine 05/29/2016 4:46 PM CDT STREP A RAPID Routine 05/29/2016 4:35 PM CDT documented in this encounter Results * STREP A RAPID (05/29/2016 4:46 PM CDT) RAPID STREP TEST Negative(Q C+) [facility] TO EPIC CONVERSION 05/29/2016 4:46 PM CDT 05/29/2016 4:46 PM CDT Narrative [facility] TO EPIC CONVERSION - 05/29/2016 4:46 PM CDT This lab was migrated from [facility] and may be missing annotations or result text, please check the Media tab for the most complete results. us Raysa TAMAYOP MICROBIOLOGY - GENERAL OR DERABLES Final Result Performing Organization Address City/[facility]/ZIP Co de Phone Number [facility] TO EPIC CONVERSION * STREP A RAPID (05/29/2016 4:35 PM CDT) STREP PYOGENES (GRP A) PCR (BLD) NEGATIVE [facility] T O EPIC CONVERSION Comment:GROUP A MOLECULAR ST REPTOCOCCUS TEST REPORT STATUS not sent [facility] UP TO EPIC CONVERSION lot number [id number] EXP 01-04-17 [facility] TO EPIC CONVERSION Internal Control: passed ME [facility] TO EPIC CONVERSION 05/29/2016 4:35 PM CDT 05/29/2016 4:35 PM CDT Narrative [facility] TO EPIC CONVERSION - 05/29/2016 5:55 PM CDT This lab was migrated from [facility] and may be missing annotations or result text, please check the Media tab for the most complete results. us Raysa EUGENE MICROBIOLOGY - GENERAL OR DERABLES Final Result Performing Organization Address City/[facility]/ZIP Co de Phone Number [facility] TO EPIC CONVERSION documented in this encounter Visit Diagnoses Not on filedocumented in this encounter Care Teams Sub Arc Operator Relationship Specialty Start Date End Date Magaly Ribeiro FNP [address] [place] [address] [place] [address] PCP - General Nurse Practitioner Family 05/09/16 documented as of this encounter
--- OUTSIDE RECORDS SUMMARY | 2024-10-14 11:33 | XMS_ITS | Encounter Summary ---
Author Organization [facility] Address [address] [place] [address]. [place], [place] [address] [place] [address] Care Team Providers Care Pipeline Systems Operator Name Role Phone Magaly Ribeiro Primary Care Provider [phone] Encounter Details Date Type Department Care Team (Late st Contact Info) Description 07/13/2014 Abstract [facility] Clinics Conversion Md, Generic Conversion, [...] on filedocumented in this encounter Care Teams Pipeline Systems Operator Relationship Specialty Start Date End Date Magaly Ribeiro FNP [address] [place] [address] [place] [address] PCP - General Nurse Practitioner Family 05/09/16 documented as of this encounter
--- OUTSIDE RECORDS SUMMARY | 2024-10-14 11:33 | XMS_ITS | Encounter Summary ---
Author Organization [facility] Address [address] [place] [address]. [place], [place] [address] [place] [address] Care Team Providers Care Secondary Spanish Teacher Name Role Phone Magaly Ribeiro Primary Care Provider Encounter Details Date Type Department Care Team (Late st Contact Info) Description 07/26/2015 Abstract [facility]ics Conversion Md, Generic Conversion, [...] on filedocumented in this encounter Care Teams Secondary Spanish Teacher Relationship Specialty Start Date End Date Magaly Ribeiro FNP [address] [place] [address] [place] [address] PCP - General Nurse Practitioner Family 05/09/16 documented as of this encounter
--- OUTSIDE RECORDS SUMMARY | 2024-10-14 11:33 | XMS_ITS | Encounter Summary ---
Author Organization [facility] Address [address] [place] [address]. [place], [place] [address] [place] [address] Care Team Providers Care Plastic Boat Buffer Name Role Phone Magaly Ribeiro Primary Care Provider Encounter Details Date Type Department Care Team (Late st Contact Info) Description 1998 Abstract [facility] CONVERSION [address] [place] [address] , Generic Conversion, Social History Tobacco Use [...] on filedocumented in this encounter Care Teams Plastic Boat Buffer Relationship Specialty Start Date End Date aMgaly Ribeiro FNP [address] [place] [address] [place] [address] PCP - General Nurse Practitioner Family 05/09/16 documented as of this encounter
--- OUTSIDE RECORDS SUMMARY | 2024-10-14 11:33 | XMS_ITS | Encounter Summary ---
Author Organization [facility] Address [address] [place] [address]. [place] [address] [place] [address] Care Team Providers Care Cashier Credit Name Role Phone Magaly Ribeiro Primary Care Provider [phone] Encounter Details Date Type Department Care Team (Late st Contact Info) Description 01/19/2004 Abstract [facility] CONVERSION [address] [place] [address] Royal Reynolds MD [address] [place] [address] Social History Tobacco Use Types Packs/Day Years [...] on filedocumented in this encounter Care Teams Cashier Credit Relationship Specialty Start Date End Date Magaly Ribeiro FNP [address] [place] [address] [place] [address] PCP - General Nurse Practitioner Family 05/09/16 documented as of this encounter
--- OUTSIDE RECORDS SUMMARY | 2024-10-14 11:33 | XMS_ITS | Encounter Summary ---
Author Organization [facility] Address [address] [place] [address]. [place], [place] [address] [place] [address] Care Team Providers Care Operations Support Manager Name Role Phone Magaly Ribeiro [facility] Primary Care Provider [phone] Encounter Details Date Type Department Care Team (Late st Contact Info) Description 04/17/2013 Abstract [facility] Clinics Conversion Elyse Vera, [place] [address] [place] [address] Social History Tobacco Use Types Packs/Day Years Used Date Smoking Tobacco: Never Assessed Comments Unknown Sex and Gender Information Value Date Recorded Sex Assigned at Not on file Legal Sex Female 7:04 PM CDT Gender Identity Not on file Sexual Orientation Not on file documented as of this encounter Last Filed Vital Signs Vital Sign Reading Time Taken Comments Blood Pressure 108/60 04/17/2013 2:44 PM CDT Pulse 70 04/17/2013 2:44 PM CDT Temperature - - Respiratory Rate - - Oxygen Saturation - - Inhaled Oxygen Concentration - - Weight 62.1 kg (137 lb) 04/17/2013 2:44 PM CDT Height 170.7 cm (5' 7.2 ) 04/17/2013 2:44 PM CDT Body Mass Index 21.33 04/17/2013 2:44 PM CDT Body Mass Index Percentile 68.33% 04/17/2013 2:4 4 PM CDT Growth Chart: CDC (Girls, 2- 20 Years) documented in this encounter Plan of Treatment Not on file documented as of this encounter Visit Diagnoses Not on filedocumented in this encounter Care Teams Operations Support Manager Relationship Specialty Start Date End Date Magaly Ribeiro FNP [address] [place] [address] [place] [address] PCP - General Nurse Practitioner Family 05/09/16 documented as of this encounter
--- OUTSIDE RECORDS SUMMARY | 2024-10-14 11:33 | XMS_ITS | Encounter Summary ---
Author Organization [facility] Address [address] [place] [address]. [place], [place] [address] [place] [address] Care Team Providers Care Agricultural Loan Officer Name Role Phone Magaly Ribeiro Primary Care Provider Encounter Details Date Type Department Care Team (Late st Contact Info) Description 07/14/2013 Abstract [facility] Clinics Conversion Md, Generic Conversion, Social History [...] on filedocumented in this encounter Care Teams Agricultural Loan Officer Relationship Specialty Start Date End Date Magaly Ribeiro FNP [address] [place] [address] [place] [address] PCP - General Nurse Practitioner Family 05/09/16 documented as of this encounter
== END 2024-10-07 11:13 | disposition home or self-care (01) ==
PROVIDERS: PCP Student in an Organized Health Care Education/Training Program; Visit Provider Student in an Organized Health Care Education/Training Program
DX: R00.2 Palpitations (principal); N91.2 Amenorrhea, unspecified
CPT/HCPCS: 36415; 84443; 84702; 85014; 85018

== ENCOUNTER 2024-10-15 10:08 | Outpatient (CLI) | payer OTHER, SELFPAY ==
[2024-10-15 11:30] LABS: Beta HCG Quantitative 11.32 mIU/ML
== END 2024-10-15 10:09 | disposition home or self-care (01) ==
PROVIDERS: PCP Nurse Practitioner Family; Visit Provider Student in an Organized Health Care Education/Training Program
DX: Z98.890 Other specified postprocedural states (principal)
CPT/HCPCS: 36415; 84702

== ENCOUNTER 2024-10-21 10:39 | Outpatient (CLI) | payer OTHER, SELFPAY ==
[2024-10-21 11:57] LABS: Beta HCG Quantitative 6.68 mIU/ML
--- OUTSIDE RECORDS SUMMARY | 2024-10-23 17:31 | XMS_ITS | Clinical Summary ---
Author Organization [facility] Address [address] [place] [address]. [place] [address] [place] [address] Care Team Providers Care Switchboard Installer Name Role Phone Magaly Ribeiro SUPERIOR COURT JUDGE Primary Care Provider [phone] Allergies No known active allergies Medications FAMOTIDINE [...] Department Care Team Description 09/15/2024 10:44 AM FIELD CROP II FARMWORKER - 09/15/2024 11:59 PM [facility] Hospital Encounter [facility] Laboratory [address] [place] [address] Neelima Fox MD Discharge Disposition: Home or Self Care (Routine Discharge) 09/15/2024 Orders Only [address] [address] Neelima Fox MD 09/15/2024 Travel 09/12/2024 10:52 AM FIELD CROP II FARMWORKER Anesthesia Event [facility] Surgery [address] [place] [address] Karri Grande CRNA 09/12/2024 10:45 AM FIELD CROP II FARMWORKER - 09/12/2024 11:23 AM FIELD CROP II FARMWORKER Surgery [address] [address] Neelima Fox MD Suction Dilatation and Curettage; Transvaginal Ultrasound 09/12/2024 9:58 AM FIELD CROP II FARMWORKER - 09/12/2024 12:50 PM FIELD CROP II FARMWORKER Hospital Encounter [address] [address] Neelima Fox MD Discharge Disposition: Home or Self Care (Routine Discharge) 09/12/2024 Travel 09/10/2024 Travel 09/04/2024 3:20 PM FIELD CROP II FARMWORKER - 09/04/2024 11:59 PM FIELD CROP II FARMWORKER Hospital Encounter [address] [address] Giuliana Madden CNM Discharge Disposition: Home or Self Care (Routine Discharge) 09/04/2024 Orders Only [address] [address] Giuliana Madden CNM 09/04/2024 Travel 08/30/2024 11:02 AM FIELD CROP II FARMWORKER - 08/30/2024 3:40 PM FIELD CROP II FARMWORKER Emergency [facility] Emergency Room [address] [place] [address] Pedro Hensley MD Vaginal Bleeding Discharge Disposition: Home or Self Care (Routine Discharge) 08/30/2024 Travel from Last 3 Months Immunizations Name Administration [...] Comments Blood Pressure 123/85 09/12/2024 12:58 PM FIELD CROP II FARMWORKER Pulse 100 09/12/2024 12:05 PM FIELD CROP II FARMWORKER Temperature 36.3 ??C (97.4 ??F) 09/12/2024 11:[address] Respiratory Rate 16 09/12/2024 12:05 PM FIELD CROP II FARMWORKER Oxygen Saturation 100% 09/12/2024 12:05 PM FIELD CROP II FARMWORKER Inhaled Oxygen Concentration - - Weight 74.4 kg (164 lb) 09/12/2024 10:14 AM FIELD CROP II FARMWORKER Height 177.8 cm (5' 10 ) 09/12/2024 10:14 AM FIELD CROP II FARMWORKER Body Mass Index 23.53 09/12/2024 10:14 AM FIELD CROP II FARMWORKER Plan of Treatment Health Maintenance Due Date Last Done Comments Cervical Cancer Screening Pap Smear (Age 21 to 29) Every 3 Years 1998 Cervical Cancer Screening 1998 Annual Physical 2001 PHQ-2 (Physician [place]) 2010 Hepatitis C 2016 DTaP, Tdap and Td [...] on patient's age to complete this topic Meningococcal B Vaccine Aged Out No l onger eligible based on patient's age to complete [...] COMPREHENSIVE METABOLIC PANEL STAT 09/15/2024 10:55 AM FIELD CROP II FARMWORKER Uterine bleeding CBC W/DIFF AUTOMATED STAT 09/15/2024 10:55 AM FIELD CROP II FARMWORKER Uterine bleeding DILATATION & CURETTAGE SUCTION 09/12/2024 10:49 AM FIELD CROP II FARMWORKER O02.1 Case Notes Needs transvaginal ultrasound.Radiology notified. Eloina will call back when she knows if they have a tech. -[facility] 09/10 1438Spoke to Arianna with US and she says 1030 will probably work if they can move another patient's time. -[facility] 09/10 1500Spoke with Mara in Radiology. Mara said they could have the ultrasound ready around 11-CD 09/11 1000. PATHOLOGY Routine 09/12/2024 12:00 AM FIELD CROP II FARMWORKER PROGESTERONE Routine 09/04/2024 3:40 PM FIELD CROP II FARMWORKER Threatened (HHS/HCC) HCG QUANT (SERUM)-CHORIONIC GONADOTROPIN Routine 09/04/2024 3:40 PM FIELD CROP II FARMWORKER Threatened (HHS/HCC) US OB <14WKS TA+TV STAT 08/30/2024 1: 41 PM FIELD CROP II FARMWORKER HC URINALYSIS AUTO W/O MICRO STAT 08/30/2024 11:55 AM FIELD CROP II FARMWORKER TYPE & SCREEN STAT 08/30/2024 11:17 AM FIELD CROP II FARMWORKER HCG QUANT (SERUM)-CHORIONIC GONADOTROPIN STAT 08/30/2024 11:17 AM FIELD CROP II FARMWORKER COMPREHENSIVE METABOLIC PANEL STAT 08/30/2024 11:17 AM FIELD CROP II FARMWORKER CBC W/DIFF AUTOMATED STAT 08/30/2024 11:17 AM FIELD CROP II FARMWORKER from Last 3 Months Results * (ABNORMAL) COMPREHENSIVE METABOLIC PANEL (09/15/2024 10:55 AM FIELD CROP II FARMWORKER) Only the most recent of2 resultswithin the time period is included. GLUCOSE 105(H) 70 - 99 MG/DL 09/15/2024 11:14 AM FIELD CROP II FARMWORKER [facility] BUN 5(L) 7 - 18 MG/DL 09/15/2024 11:14 AM FIELD CROP II FARMWORKER [facility] CREATININE S/P/B 0.76 0.55 - 1.02 MG/DL 09/15/2024 11:14 AM [facility] SODIUM S/P/B 142 136 - 145 MMOL/L 09/15/2024 11:14 AM [facility] POTASSIUM S/P/B 3.9 3.5 - 5.1 MMOL/L 09/15/2024 11:14 AM [facility] CHLORIDE S/P/B 107 100 - 108 MMOL/L 09/15/2024 11:14 AM [facility] CO2 27.3 21 - 32 MMOL/L 09/15/2024 11:14 AM [facility] CALCIUM S/P/B 8.9 8.5 - 10.1 MG/DL 09/15/2024 11:14 AM [facility] BILIRUBIN TOTAL S/P/B 1.2 0.2 - 1.2 MG/DL 09/15/2024 11:14 AM [facility] TOTAL PROTEIN S/P/B 7.0 6.4 - 8.2 G/DL 09/15/2024 11:14 AM [facility] ALBUMIN S/P/B 3.6 3.4 - 5.0 G/DL 09/15/2024 11:14 AM [facility] AST 74(H) 15 - 37 U/L 09/15/2024 11:14 AM [facility] ALT 118(H) 14 - 55 U/L 09/15/2024 11:14 AM [facility] ALKALINE PHOSPHATASE S/P/B 84 50 - 136 U/L 09/15/2024 11:14 AM [facility] ANION GAP 7.7 5 - 15 MMOL/L 09/15/2024 11:14 AM [facility] BUN CREATININE RATIO 6.6 6 - 26 09/15/2024 11:14 AM [facility] A/G RATIO 1.1 1.0 - 2.0 RATIO 09/15/2024 11:14 AM [facility] GFR ESTIMATE >90 >90 ML/MIN/1.7 3 M2 09/15/2024 11:14 AM [facility] Comment: NOTE: eGFR is not calculated for patients <18 years of age. This is an estimated GFR calculation using the new CKD EPI creatinine equation without race and so does not require a correction factor for race. This estimated GFR should not be used for calculating drug doses. 09/15/2024 10:5 5 AM FIELD CROP II FARMWORKER us Neelima Fox MD LABORATORY Final Result [facility] [address] [place] [address], [place] [phone] * (ABNORMAL) CBC W/DIFF AUTOMATED (09/15/2024 10:55 AM FIELD CROP II FARMWORKER) Only the most recent of2 resultswithin the time period is included. WBC 5.95 4.4 - 11.0 x10'3/uL 09/15/2024 11:00 AM [facility] RBC 4.19(L) 4.50 - 5.10 x10'6/uL 09/15/2024 11:00 AM [facility] HGB 12.4 12.3 - 15.3 G/DL 09/15/2024 11:00 AM [facility] HCT 36.5 35.9 - 44.6 % 09/15/2024 11:00 AM [facility] MCV 87.1 80.0 - 96.0 FL 09/15/2024 11:00 AM [facility] MCH 29.6 25.3 - 30.9 PG 09/15/2024 11:00 AM [facility] MCHC 34.0 31.0 - 34.1 G/DL 09/15/2024 11:00 AM [facility] RDW 13.0 12.4 - 15.1 % 09/15/2024 11:00 AM [facility] PLT 178 151 - 353 x10'3/uL 09/15/2024 11:00 AM [facility] MPV 10.5 9.6 - 12.0 FL 09/15/2024 11:00 AM [facility] RBC MORPHOLOGY NORMAL 09/15/2024 11:00 AM [facility] PLT MORPH. NORMAL 09/15/2024 11:00 AM [facility] WBC MORPHOLOGY NORMAL 09/15/2024 11:00 AM [facility] LYMPHOCYTES % 19.5 15.8 - 45.0 % 09/15/2024 11:00 AM [facility] NEUTROPHILS % 70.6 42.1 - 71.9 % 09/15/2024 11:00 AM [facility] MONOCYTES % 7.6 5.7 - 12.5 % 09/15/2024 11:00 AM [facility] EOSINOPHILS 1.3 0.0 - 5.6 % 09/15/2024 11:00 AM [facility] BASOPHILS 0.8 0.0 - 1.3 % 09/15/2024 11:00 AM [facility] ABS. NEUTROPHILS 4.20 1.40 - 6.00 x10'3/uL 09/15/2024 11:00 AM [facility] IMMATURE GRANS % 0.2 0.0 - 0.5 % 09/15/2024 11:00 AM [facility] ABS. LYMPHOCYTES 1.16 0.80 - 4.70 x10'3/uL 09/15/2024 11:00 AM FIELD CROP II FARMWORKER [facility] 09/15/2024 10:5 5 AM FIELD CROP II FARMWORKER Neelima Fox MD LABORATORY Final Result [facility] [address] [place] [address], * Pathology (09/12/2024 12:00 AM FIELD CROP II FARMWORKER) PATHOLOGY [facility] ? Department of Laboratory Medicine ?[address] [facility] ?[place] [address] ? , [facility] [id number] ? Pathology Report ? Surgical Pathology Report Name: EVELYN SMITH ? Specimen #: [id number] Age: 11 2000 (Age: 24) ?Location: [facility] Sex: F ?Procedure Date: 09/12/2024 Hospital #: [id number] ?Date Received: 09/15/2024 Date Reported: 09/16/2024 Provider: [...] 1.8 cm. ?? parts are not identified. ??Exerciser sections are submitted in cassette 1. Please note: The remaining specimen is returned to the collecting facility following microscopic examination. Gross examination (when applicable), interpretation, and sign out were performed at [facility], [address] [place] [address], [place] [address]. ?? Electronically Signed Out ? NASRIN JENKINS MD [facility] TISSUE (OTHER (type in comments)) 09/12/2024 11:22 AM FIELD CROP II FARMWORKER us Neelima Fox MD PATHOLOGY/CYTOLOGY ORDERABLES Final Result [facility] [address] [place] [address], [id number] * HCG QUANT (SERUM)-CHORIONIC GONADOTROPIN (09/04/2024 3:40 PM FIELD CROP II FARMWORKER) Only the most recent of2 resultswithin the time period is included. HCG QUANTITATIVE 80,734 MIU/ML 12/05/20 24 5:31 PM FIELD CROP II FARMWORKER [facility] Comment: WEEKS OF ? REFERENCE RANGES [...] MONTHS ?10,000 - 100,000 09/04/2024 3:40 PM FIELD CROP II FARMWORKER Giuliana Madden [facility] Final Result Performing Organization Address [facility]/State/[facility] Co de Phone Number [facility] [address] [place] [address], * PROGESTERONE (09/04/2024 3:40 PM FIELD CROP II FARMWORKER) PROGESTERONE 12.8 see note ng/mL 09/10/2024 12:22 PM FIELD CROP II FARMWORKER [facility] Comment: Unable to flag abnormal result(s), please refer ?? to reference range(s) below: ?? Female: ?? Follicular Phase ?<1.0 ng/mL ?? Luteal Phase ?2.6 - 21.5 ng/mL ?? Post Menopausal ? <0.5 ng/mL ?? : ?? 1st Trimester ? 4.1 - 34.0 ng/mL ?? 2nd Trimester ?24.0 - 76.0 ng/mL ?? 3rd Trimester ?52.0 -302.0 ng/mL Test Performed by [email or web address], [facility] [place], [address] [place], [place] Arnold Hercules M.D., Ph.D., Director of Laboratories , [facility] [id number] 09/04/2024 3:40 PM FIELD CROP II FARMWORKER Giuliana MCNALLY LABORATORY Final Result [employer] [place] [id number] [place], [place] , [place] [phone] * US OB <14WKS TA+TV (08/30/2024 1:41 PM FIELD CROP II FARMWORKER) Anatomical Region Laterality Modality Ultrasound 08/30/2024 1:44 PM FIELD CROP II FARMWORKER Impressions 08/30/2024 1:48 PM FIELD CROP II FARMWORKER IMPRESSION: Viable single intrauterine with average ultrasound age of 6 weeks 3 days for due date 04/22/2025. ??This is very similar to the dates by LMP. Couple small foci of subchorionic hematoma. Cervix remains closed. Referred By: ?? Interpreted By: Augusto Lovett MD, 08/30/2024 1:44 PM Narrative 08/30/2024 1:48 PM FIELD CROP II FARMWORKER [facility] [address] [place] [address] Examination: US OB <14WKS TA+TV Exam time: 08/30/2024 1:06 PM Indication: . ??Last menstrual period 07/14/2024 for gestational age 6 weeks 5 days and due date 04/20/2025. ??Vaginal bleeding since Wednesday. ??Evaluate for viability. Comparison: None Findings: Transabdominal [...] Procedure Note Augusto Lovett MD - 08/30/2024 [facility] [address] [place] [address] Examination: US OB <14WKS TA+TV Exam time: [...] [facility]. Couple small foci of subchorionic hematoma. Cervix remains closed. Referred By: Interpreted By: Augusto Lovett MD, 08/30/2024 1:44 PM Pedro Hensley MD ULTRASOUND Final Result * (ABNORMAL) URINALYSIS (08/30/2024 11:55 AM FIELD CROP II FARMWORKER) COLOR (U) YELLOW 08/30/2024 12:23 PM [facility] TRANSPARENCY CLEAR 08/30/2024 12:23 PM [facility] SPECIFIC GRAVITY (U) 1.015 1.002 - 1.030 08/30/2024 12:23 PM [facility] U PH 7.0 4.5 - 8.0 08/30/2024 12:23 PM [facility] LEUKOCYTES (U) NEGATIVE NEGATIVE 08/30/2024 12:23 PM [facility] NITRITES NEGATIVE NEGATIVE 08/30/2024 12:23 PM [facility] PROTEIN RANDOM (U) 1+(A) NEGATIVE 08/30/2024 12:23 PM [facility] GLUCOSE (U) NEGATIVE NEGATIVE 08/30/2024 12:23 PM ([facility] KETONES MG/DL (U) 1+(A) NEGATIVE 08/30/2024 12:23 PM ([facility] UROBILINOGEN NORMAL NORMAL EU/DL 08/30/2024 12:23 PM [facility] BILIRUBIN (U) NEGATIVE NEGATIVE 08/30/2024 12:23 PM [facility] BLOOD (U) 3+(A) NEGATIVE 08/30/2024 12:23 PM ([facility] RBC/HPF 5-10 /HPF 08/30/2024 12:23 PM FIELD CROP II FARMWORKER [facility] EPI/HPF 0-5 /HPF 08/30/2024 12:23 PM FIELD CROP II FARMWORKER [facility] MUCUS 1+ 08/30/2024 12:23 PM FIELD CROP II FARMWORKER [facility] URINE SPECIMEN OBTAINED BY CLEAN CATCH PROCEDURE / Unknown 08/30/2024 11:55 AM FIELD CROP II FARMWORKER us Pedro Hensley MD URINE ORDERABLES Final Result Performing Organization Address City/[facility]/ZIP Co de Phone Number [facility] [address] [place] [address], [place] [phone] * TYPE AND SCREEN (08/30/2024 11:17 AM FIELD CROP II FARMWORKER) ABO/RH O POSITIVE 08/30/2024 12:11 PM FIELD CROP II FARMWORKER [facility] ANTIBODY SCREEN NEGATIVE 08/30/2024 12:38 PM FIELD CROP II FARMWORKER [facility] SAMPLE EXPIRATION 09/02/2024,2 359 08/30/2024 12:11 PM FIELD CROP II FARMWORKER [facility] 08/30/2024 11:1 7 AM FIELD CROP II FARMWORKER us Pedro Hensley MD BLOOD BANK TEST ORDERABLES Final Result Performing Organization Address [facility] Co de Phone Number [facility] [address] [place] [address], [place] [phone] from Last 3 Months Insurance Care Teams Switchboard Installer Relationship Specialty Start Date End Date Magaly Ribeiro FNP [address] [place] [address] [place] [address] PCP - General Nurse Practitioner Family 05/09/16
== END 2024-10-21 10:40 | disposition home or self-care (01) ==
LOC: ANHLAB 10:40
PROVIDERS: PCP Nurse Practitioner Family; Visit Provider Student in an Organized Health Care Education/Training Program
DX: O02.1 Missed abortion (principal)
CPT/HCPCS: 36415; 84702

== ENCOUNTER 2025-01-02 15:14 | Outpatient (CLI) | payer OTHER, SELFPAY ==
--- NOTE | ~2025-01-02 | US_ITS ---
EXAMINATION: US OB <=14 wk fetus w TV DATE: 01/02/2025 15:46 INDICATION: Amenorrhea. Assess dating and viability during first trimester . TECHNIQUE: Real-time pelvic ultrasound utilizing both a transvaginal and transabdominal probe was pe rformed. The interpreting radiologist was not present for the study. COMPARISON: None. FINDINGS: The uterus measures 10.4 x 5.6 x 6.1 cm. There is an intrauterine gestational sac. A yolk sac and fe catalina pole are identified. The crown rump length measures 1.6 cm, which correlates with an estimated ge stational age of 8 weeks and 0 days. heart motion is identified measuring 159 beats per minute (bpm) by M-mode Doppler. The right ovary measures 2.8 x 2.4 x 1.8 cm. The left ovary measures 5.2 x 5.0 x 4.2 cm. 2.3 similar anechoic likely corpus luteum cyst in the left ovary. There is no free fluid in the pelvis. IMPRESSION: 1. Single living fetus with heart rate of 158 bpm. 2. Gestational age by ultrasound of 8 weeks 0 day(s) +/- 5 day(s) with ultrasound estimated date of delivery (GUNNAR) of 08/14/2025. Reviewed, dictated and finalized at location A. IMPRESSION: 1. Single living fetus with heart rate of 158 bpm. 2. Gestational age by ultrasound of 8 weeks 0 day(s) +/- 5 day(s) with ultraso und estimated date of delivery (GUNNAR) of 08/14/2025.
== END 2025-01-02 15:15 | disposition home or self-care (01) ==
LOC: MICIMG 15:15
PROVIDERS: PCP Student in an Organized Health Care Education/Training Program; Visit Provider Student in an Organized Health Care Education/Training Program
DX: N91.2 Amenorrhea, unspecified (principal)
CPT/HCPCS: 76801; 76817

== ENCOUNTER 2025-01-05 10:37 | Outpatient (CLI) | payer OTHER, SELFPAY ==
[2025-01-05 11:03] LABS: Hematocrit 41.3 % (37.0-47.0); Mean Corpuscular HGB Conc 33.9 g/dl (32-36); Mean Corpuscular Hemoglobin 28.9 pg (26-34); Mean Corpuscular Volume 85.3 fl (80-100); Mean Platelet Volume 11.1 fl (7.4-10.4); Platelet Count Result 211 k/mm3 (150-375); Red Blood Count 4.84 M/mm3 (4.2-5.4); Red Cell Distribution Width 12.7 % (11.5-14.5); White Blood Count 9.6 K/mm3 (4.5-10.0)
--- OUTSIDE RECORDS SUMMARY | 2025-01-05 12:17 | XMS_ITS | Clinical Summary ---
Author Organization [facility] Address [facility] [place] [address] Care Team Providers Care Teen Counselor Name Role Phone Maglay Ribeiro [facility] Primary Care Provider [phone] Allergies No known active allergies Medications clindamycin (CLEOCIN T) 1 % gel Apply topically 2 (two) times daily. Active Azelaic Acid 15 % gel Apply 50 g topically 2 (two) times daily. Active Active Problems No known active problems Encounters Date Type Department Care Team Description 12/09/2024 8:47 AM CDT - 12/09/2024 11:59 PM CDT Hospital Encounter [facility] Ultrasound [address] [place] [address] Elvis Young MD Discharge Disposition: Home or Self Care (Routine Discharge) 12/09/2024 Travel 12/03/2024 1:45 PM TANK TRUCK LOADER Office Visit [facility] [address] [place] [address] Elvis Young MD Consult (Tachycardia) 12/03/2024 Travel 11/10/2024 11:15 AM TANK TRUCK LOADER Telephone [facility], [address] [address] [place] [address] Raysa Mehta FNP Holter Monitor 11/03/2024 1:34 PM TANK TRUCK LOADER - 11/03/2024 11:59 PM TANK TRUCK LOADER Hospital Encounter [facility] [address] [place] [address] Raysa Mehta FNP Discharge Disposition: Home or Self Care (Routine Discharge) 11/03/2024 12:20 PM TANK TRUCK LOADER Office Visit [facility] [address] [place] [address] Raysa Mehta FNP Follow Up (tachacardia) 11/03/2024 Travel from Last 3 Months Immunizations Name [...] Medical History Relation Comments Crohns Disease Brother 1 Diabetes type I Brother 2 Hypertension Brother 2 Hypothyroidism Brother 2 No Known Problems Brother 3 No Known Problems Brother 4 Hypertension Father Stroke Maternal Grandfather Hypertension Maternal Grandmother Hyperlipidemia Mother Hypertension Mother Hypothyroidism Mother Diabetes Paternal Grandfather Heart Disease Paternal Grandfather Hyperlipidemia Paternal Grandfather Hypertension Paternal Grandfather Kidney Disease Paternal Grandfather Hypertension Paternal Grandmother Hypertension Sister 1 Hypertension Sister 2 Supraventricular tachycardia Sister 3 Hypothyroidism Sister 4 No Known Problems Sister 5 No Known Problems Sister 6 Relation Status Comments Brother 1 Alive Brother 2 Alive Brother 3 Alive Brother 4 Alive Father Alive Maternal Grandfather Maternal Grandmother Alive Mother Alive Paternal Grandfather Paternal Grandmother Alive Sister 1 Alive Sister 2 Alive Sister 3 Alive Sister 4 Alive Sister 5 Alive Sister 6 Alive Social History Tobacco Use Types Packs/Day Years Used Date Smoking Tobacco: Never Smokeless Tobacco: Never Tobacco Cessation:Counseling Given: No Alcohol Use Standard Drinks/Week Comments Yes 0 (1 standard drink = 0.6 oz pur e alcohol) PHQ-2 Answer Date Recorded Patient Health Questionnaire-2 Score 0 11/03/2024 Comments No Sex and Gender Information Value Date Recorded Sex Assigned at Female 11/03/2024 12:23 PM TANK TRUCK LOADER Legal Sex Female 7:04 PM CDT Gender Identity Not on file Sexual Orientation Not on file Last Filed Vital Signs Vital Sign Reading Time Taken Comments Blood Pressure 140/82 12/03/2024 1:41 PM TANK TRUCK LOADER Pulse 88 12/03/2024 1:41 PM TANK TRUCK LOADER Temperature 37.1 C (98.8 F) 11/03/2024 12:17 PM TANK TRUCK LOADER Respiratory Rate 12 11/03/2024 12:17 PM TANK TRUCK LOADER Oxygen Saturation 99% 11/03/2024 12:17 PM TANK TRUCK LOADER Inhaled Oxygen Concentration - - Weight 75.3 kg (166 lb) 12/03/2024 1:41 PM TANK TRUCK LOADER Height 177.8 cm (5' 10 ) 12/03/2024 1:41 PM TANK TRUCK LOADER Body Mass Index 23.82 12/03/2024 1:41 PM TANK TRUCK LOADER Plan of Treatment Upcoming Encounters Date Type Department Care Team (Late st Contact Info) Description 12/02/2025 1:00 PM TANK TRUCK LOADER Office Visit [facility] [address] [place] [address] Elvis Young MD [address] [place] [address] Health Maintenance Due Date Last Done Comments Cervical Cancer Screening Pap Smear (Age 21 to 29) Every 3 Years 1998 Cervical Cancer Screening 1998 Annual Physical 2001 Hepatitis C 2016 DTaP, Tdap and Td Vaccines (7 - Td or Tdap) 04/17/2023 04/17/2013, 01/19/2004, 01/10/2000, Additional history exists COVID-19 Vaccine (3 - season) 2024 10/26/2020, 09/28/2020 Hepatitis B Vaccines Completed 11/22/1999, 1998, 1998 HPV Vaccines Completed 07/13/2014, 07/01, 04/17/2013 Meningococcal Vaccine Aged Out 07/26/2015, 013 No longer eligible based on patient's age to complete this topic PHQ-2 (Physician [place]) Completed 11/03/2024 Meningococcal B Vaccine Aged Out No l [...] Procedure Name Priority Date/Time Associated Diagnosis Comments USE ECHOCARDIOGRAM Routine 12/09/2024 9: 19 AM CDT Tachycardia ELECTROCARDIOGRAM (NON MIDMARK ACQUIRED) Routine 12/03/2024 1:40 PM TANK TRUCK LOADER Tachycardia EVENT RECORDER (ECG) UP TO 30 DAYS COMPLETE Routine 11/24/2024 1:51 PM TANK TRUCK LOADER Tachycardia COLLECTION VENOUS BLOOD VENIPUNCTURE Routine 11/03/2024 1:04 PM TANK TRUCK LOADER Tachycardia IRON SAT PANEL (IRON,IBC,%SAT) Routine 11/03/2024 12:45 PM TANK TRUCK LOADER Tachycardia FERRITIN Routine 11/03/2024 12:45 PM TANK TRUCK LOADER Tachycardia CBC W/DIFF AUTOMATED Routine 11/03/2024 12:45 PM TANK TRUCK LOADER Tachycardia COMPREHENSIVE METABOLIC PANEL Routine 11/03/2024 12:45 PM TANK TRUCK LOADER Tachycardia from Last 3 Months Results * USE ECHOCARDIOGRAM (12/09/2024 9:19 AM CDT) Anatomical Region Laterality Modality Cardiac Ultrasound 12/09/2024 8:54 AM CDT Narrative 12/10/2024 8:02 AM CDT TAYLOR MCWILLIAMS Pat.Name: Evelyn Smith Pat.ID: [id number] .Date: 12/09/2024 Refer.MD: Nestor, [facility] Radiology Exam Time: 8:54:00 AM Study Type:OUTREACH Height: 70 in Weight: 160 lb BSA: 1.9 m2 Age: 11 2000,24Y Sex: F Sonogrphr: Luis Pat. Stat.:Outpatient Reason for Study:Tachycardia Procedures: Study performed at [place], [place] and interpreted by [facility]. 2D, M-mode, Doppler, Color Flow ++++++++++++++++++++++++++++++++++++ SUMMARY: ++++++++++++++++++++++++++++++++++++ The left ventricular size is normal. Left ventricular function is normal. The ejection fraction is >55%. Diastolic filling is normal for age. Wall motion appears normal in all segments. No significant valvular abnormality. Right ventricular systolic pressure is 25 mmHg. ++++++++++++++++++++++++++++++++++++ FINDINGS: ++++++++++++++++++++++++++++++++++++ LV: The left ventricular size is normal. Left ventricular function is normal. The ejection fraction is >55%. Diastolic filling is normal for age. WM: Wall motion appears normal in all segments. RV: The right ventricle size is normal. The right ventricular function is normal. LA: Left atrial size is normal. RA: The right atrial size is normal. BRYN: No evidence of pericardial effusion. AO: Aorta is normal. SVn: Inferior vena cava is normal. AV: No clear spectral or echocardiographic evidence of aortic valve stenosis. No evidence of aortic regurgitation. The aortic valve not well visualized. MV: The mitral valve is structurally normal. There is trace mitral regurgitation. PV: Structurally normal pulmonic valve. No evidence of pulmonic valve stenosis. No evidence of pulmonic regurgitation. Pulmonic valve not well visualized. TV: Right ventricular systolic pressure is 25 mmHg. <Electronic Signature> 12/10/2024 08:02 AM Rishi Elizondo M.D. Procedure Note Rishi Elizondo MD - 12/10/2024 TAYLOR MCWILLIAMS Pat.Name: Evelyn Smith Alta.ID: [id number] .Date: 12/09/2024 Refer.MD: Nestor, [facility] Radiology Exam Time: 8:54:00 AM Study Type:OUTREACH Height: 70 in Weight: 160 lb BSA: 1.9 m2 Age: 11 2000,24Y Sex: F Sonogrphr: Luis Pat. Stat.:Outpatient Reason for Study:Tachycardia Procedures: Study performed at [place], [place] and interpreted by [facility]. 2D, M-mode, Doppler, Color Flow ++++++++++++++++++++++++++++++++++++ SUMMARY: ++++++++++++++++++++++++++++++++++++ The left ventricular size is normal. Left ventricular function is normal. The ejection fraction is >55%. Diastolic filling is normal for age. Wall motion appears normal in all segments. No significant valvular abnormality. Right ventricular systolic pressure is 25 mmHg. ++++++++++++++++++++++++++++++++++++ FINDINGS: ++++++++++++++++++++++++++++++++++++ LV: The left ventricular size is normal. Left ventricular function is normal. The ejection fraction is >55%. Diastolic filling is normal for age. WM: Wall motion appears normal in all segments. RV: The right ventricle size is normal. The right ventricular function is normal. LA: Left atrial size is normal. RA: The right atrial size is normal. BRYN: No evidence of pericardial effusion. AO: Aorta is normal. SVn: Inferior vena cava is normal. AV: No clear spectral or echocardiographic evidence of aortic valve stenosis. No evidence of aortic regurgitation. The aortic valve not well visualized. MV: The mitral valve is structurally normal. There is trace mitral regurgitation. PV: Structurally normal pulmonic valve. No evidence of pulmonic valve stenosis. No evidence of pulmonic regurgitation. Pulmonic valve not well visualized. TV: Right ventricular systolic pressure is 25 mmHg. <Electronic Signature> 12/10/2024 08:02 AM Rishi Elizondo M.D. us Elvis Young MD ECHO Final Result * ELECTROCARDIOGRAM (12/03/2024 1:40 PM TANK TRUCK LOADER) 12/03/2024 1:40 PM TANK TRUCK LOADER Narrative [facility] - 12/09/2024 2:[address] [facility] Test Date: 2024-12-03 Pat Name: EVELYN SMITH Department: 108 Room: Gender: Female Manager Community Relations: : 2000 Requested By: ELVIS YOUNG Order Number: [id number] Reading : Figueroa Tobias Measurements Intervals Worden Rate: 87 P: 69 WI: 126 QRS: 80 QRSD: 81 T: 45 QT: 350 QTc: 421 Interpretive Statements SINUS RHYTHM Procedure Note Figueroa Tobias MD - 12/09/2024 [facility] Test Date: 2024-12-03 Pat Name: EVELYN SMITH Department: 108 Room: Gender: Female Manager Community Relations: : 2000 Requested By: ELVIS YOUNG Order Number: [id number] Reading : Figueroa Tobias Measurements Intervals Worden Rate: 87 P: 69 WI: 126 QRS: 80 QRSD: 81 T: 45 QT: 350 QTc: 421 Interpretive Statements SINUS RHYTHM Elvis Young MD PROCEDURES-ORDERABLE NO CHARGE F inal Result [place] [facility]. * EVENT RECORDER (ECG) UP TO 30 DAYS COMPLETE (11/24/2024 1:51 PM TANK TRUCK LOADER) Impressions [facility] - 11/24/2024 1:51 PM TANK TRUCK LOADER [place], [place] [address] MOBILE CARDIAC JAR CAPPER REPORT Patient Name: Evelyn Smith : 2000 [employer] Detail Date: 11/12/2024 End Date: 11/18/2024 Performed At: [place], [place] Interpreting It Service Manager: Pepito Francis MD PCP: VALORIE GÓMEZ Ordering Provider: Pepito Francis MD INDICATION: Tachycardia DURATION OF MONITORIN days NUMBER OF TRANSMISSIONS: 20 (10 auto transmissions, 10 manual, 0 periodic) INTERPRETATION: A 7-day mobile cardiac monitoring engineer analyzed. Interpretable data was for days, 19 hours and 39 minutes (74% of monitoring period). The baseline rhythm was sinus tachycardia. There was not atrial fibrillation or atrial flutter observed. A minimum heart rate was 50 bpm on 11/15/2024 at 4:22 AM. A maximum heart rate in sinus rhythm was 143 bpm on 11/13/2024 at 6:39 AM. There were no pauses observed. The manual triggered episodes for palpitations and shortness of breath correlated with sinus rhythm or sinus tachycardia. The auto triggered episodes were for sinus tachycardia, isolated premature ventricular complexes, isolated premature supraventricular complexes. The overall ectopy burden was very low less than 1%. CONCLUSION: 7-day mobile cardiac telemetry was without evidence of clinically significant arrhythmias. Interpreting It Service Manager: Dr. Pepito Francis Raysa Mehta LODGING FACILITIES MANAGER CV VASCULAR ORDERABLES Fi nal Result [facility] * IRON SAT PANEL (IRON,IBC,%SAT) (11/03/2024 12:45 PM TANK TRUCK LOADER) IRON 116 50.0 - 170.0 MCG/DL 11/03/2024 8:31 PM TANK TRUCK LOADER [facility] IRON BINDING CAPACITY 388 250 - 450 MCG/DL 11/03/2024 8:31 PM TANK TRUCK LOADER [facility] IRON SATURATION 30 20 - 55 % 8:31 PM TANK TRUCK LOADER [facility] 11/03/2024 12:4 5 PM TANK TRUCK LOADER R[facility]a [facility] Final Res ult Performing Organization Address City/[facility]/ZIP Co de Phone Number [facility] [address], [place] [phone] * (ABNORMAL) COMPREHENSIVE METABOLIC PANEL (11/03/2024 12:45 PM TANK TRUCK LOADER) GLUCOSE 85 70 - 99 MG/DL 11/03/2024 2:21 PM TANK TRUCK LOADER [facility] BUN 12 7 - 18 MG/DL 11/03/2024 2:21 PM TANK TRUCK LOADER [facility] CREATININE S/P/B 0.77 0.50 - 1.20 MG/DL 11/03/2024 2:21 PM TANK TRUCK LOADER [facility] SODIUM S/P/B 140 136 - 145 MMOL/L 11/03/2024 2:21 PM TANK TRUCK LOADER [facility] POTASSIUM S/P/B 4.1 3.5 - 5.1 MMOL/L 11/03/2024 2:21 PM [facility] CHLORIDE S/P/B 105 100 - 108 MMOL/L 11/03/2024 2:21 PM [facility] CO2 24.9 21.0 - 32.0 MMOL/L 11/03/2024 2:21 PM [facility] CALCIUM S/P/B 8.4(L) 8.5 - 10.1 MG/DL 11/03/2024 2:21 PM [facility] BILIRUBIN TOTAL S/P/B 1.4(H) 0.2 - 1.2 MG/DL 11/03/2024 2:21 PM [facility] Comment: THIS ASSAY IS NOT RECOMMENDED FOR PATIENTS UNDERGOING TREATMENT WITH ELTROMBOPAG DUE TO THE POTENTIAL FOR FALSELY ELEVATED RESULTS. TOTAL PROTEIN S/P/B 6.5 6.4 - 8.2 G/DL 11/03/2024 2:21 PM [facility] ALBUMIN S/P/B 3.8 3.4 - 5.0 G/DL 11/03/2024 2:21 PM [facility] AST 19 15 - 37 U/L 11/03/2024 2:21 PM [facility] ALT 22 14 - 55 U/L 11/03/2024 2:21 PM [facility] ALKALINE PHOSPHATASE S/P/B 75 50 - 136 U/L 11/03/2024 2:21 PM [facility] ANION GAP 10.1 5.0 - 15.0 MMOL/L 11/03/2024 2:21 PM [facility] BUN CREATININE RATIO 15.6 6 - 26 11/03/2024 2:21 PM [facility] A/G RATIO 1.4 1.0 - 2.5 RATIO 11/03/2024 2:21 PM [facility] GFR ESTIMATE >90 >90 ML/MIN/1.7 3 M2 11/03/2024 2:21 PM [facility] Comment: NOTE: eGFR is not calculated for patients <18 years of age. This is an estimated GFR calculation using the new CKD EPI creatinine equation without race and so does not require a correction factor for race. This estimated GFR should not be used for calculating drug doses. 11/03/2024 12:4 5 PM TANK TRUCK LOADER us Raysa Mehta LODGING FACILITIES MANAGER LABORATORY Final Res ult [facility] [address] [place] [address], [place] * CBC W/DIFF AUTOMATED (11/03/2024 12:45 PM TANK TRUCK LOADER) WBC 9.66 4.50 - 11.00 x10'3/uL 11/03/2024 1:39 PM TANK TRUCK LOADER [facility] RBC 4.90 4.00 - 5.20 x10'6/uL 11/03/2024 1:39 PM TANK TRUCK LOADER [facility] HGB 14.4 12.0 - 16.0 G/DL 11/03/2024 1:39 PM TANK TRUCK LOADER [facility] HCT 42.0 38.0 - 48.0 % 11/03/2024 1:39 PM TANK TRUCK LOADER [facility] MCV 85.7 80.0 - 100.0 FL 11/03/2024 1:39 PM TANK TRUCK LOADER [facility] MCH 29.4 26.0 - 34.0 PG 11/03/2024 1:39 PM TANK TRUCK LOADER [facility] MCHC 34.3 31.0 - 37.0 G/DL 11/03/2024 1:39 PM TANK TRUCK LOADER [facility] RDW 12.4 11.6 - 14.8 % 11/03/2024 1:39 PM TANK TRUCK LOADER [facility] PLT 222 130 - 400 x10'3/uL 11/03/2024 1:39 PM TANK TRUCK LOADER [facility] MPV 11.6 7.0 - 12.0 FL 11/03/2024 1:39 PM [facility] CBC COMMENT AUTOMATED RBC MORPHOLOGY AND PLATELET EVALUATION NORMAL 11/03/2024 1:39 PM [facility] NEUTROPHILS % 70.7 40.0 - 74.0 % 11/03/2024 1:39 PM [facility] LYMPHOCYTES % 21.3 14.0 - 46.0 % 11/03/2024 1:39 PM [facility] MONOCYTES % 6.5 4.0 - 13.0 % 11/03/2024 1:39 PM [facility] EOSINOPHILS 0.5 0.0 - 7.0 % 11/03/2024 1:39 PM [facility] BASOPHILS 0.7 0.0 - 3.0 % 11/03/2024 1:39 PM [facility] IMMATURE GRANS % 0.3 0.0 - 0.43 % 11/03/2024 1:39 PM [facility] NRBC % 0.0 % 11/03/2024 1:39 PM [facility] ABS. NEUTROPHILS TOTAL 6.82 1.69 - 7.81 x10'3/uL 11/03/2024 1:39 PM [facility] ABS. LYMPHOCYTES 2.06 0.21 - 5.42 x10'3/uL 11/03/2024 1:39 PM [facility] ABS. MONOCYTES 0.63 0.04 - 1.37 x10'3/uL 11/03/2024 1:39 PM [facility] ABS. EOSINOPHILS 0.05 0.00 - 0.68 x10'3/uL 11/03/2024 1:39 PM [facility] ABS. BASOPHILS 0.07 0.00 - 0.08 x10'3/uL 11/03/2024 1:39 PM [facility] ABS. IMMATURE GRANULOCYTES 0.03 0.00 - 0.06 x10'3/uL 11/03/2024 1:39 PM [facility] ABS. NUCLEATED RBC'S 0.00 0.00 - 0.01 x10'3/uL 11/03/2024 1:39 PM TANK TRUCK LOADER [facility] 11/03/2024 12:4 5 PM TANK TRUCK LOADER Raysa A Comrie LODGING FACILITIES MANAGER LABORATORY Final Res ult Performing Organization Address City/[facility]/ZIP Co de Phone Number [facility] [address] [place] [address], * FERRITIN (11/03/2024 12:45 PM TANK TRUCK LOADER) FERRITIN 26.2 8.0 - 388.0 NG/ML 11/03/2024 8:31 PM TANK TRUCK LOADER [facility] 11/03/2024 12:4 5 PM TANK TRUCK LOADER [facility] Final Res ult Performing Organization Address City/[facility] Co de Phone Number [facility] [address] [place] [address], from Last 3 Months Insurance Care Teams Teen Counselor Relationship Specialty Start Date End Date Magaly Ribeiro FNP [address] [place] [address] [place] [address] PCP - General Nurse Practitioner Family 05/09/16
[2025-01-05 12:47] LABS: Syphilis IgG/IgM Antibody Negative (Negative)
[2025-01-05 12:51] LABS: Hepatitis B Surface Antigen Negative (Negative); Rubella IgG Antibody 97.3 IU/ML
[2025-01-05 12:56] LABS: HIV 1/2 Ab P24 Ag Result Negative (Negative)
[2025-01-07 04:03] LABS: CMV IgG Antibody <0.60 U/mL; Varicella IgG Antibody 1.22 S/CO
== END 2025-01-05 10:38 | disposition home or self-care (01) ==
PROVIDERS: PCP Student in an Organized Health Care Education/Training Program; Visit Provider Student in an Organized Health Care Education/Training Program
DX: N91.2 Amenorrhea, unspecified (principal)
CPT/HCPCS: 36415; 84702; 85027; 86593; 86644; 86703; 86747; 86762; 86787; 86850; 86900; 86901; 87086; 87340; G0432

== ENCOUNTER 2025-03-23 15:01 | Outpatient (CLI) | payer OTHER, SELFPAY ==
--- NOTE | ~2025-03-23 | US_ITS ---
EXAMINATION: US OB /maternal detail DATE: 03/24/2025 21:38 CDT INDICATION: Anatomy scan TECHNIQUE: Real-time transabdominal obstetric ultrasound. FINDINGS: 2 para 0 There is a single intrauterine gestation in vertex presentation. The placenta is posterior. The distance from the tip of the placenta to the internal cervical os bulmaro ures 3.8 cm. The cervix measures 3.4cm in length. cardiac activity and movement is noted with a heart rate of 140 beats per minute. Anatomic parameters are as follows The bladder is visualized and is unremarkable. A three-vessel cord is present. Cord insertion is demonstrated to be primarily on the midline of the abdomen. Bilateral kidneys are present without hydronephrosis. The anterior and posterior margins of the diaphragm is poorly visualized on static imaging. Con tinuity is demonstrated on cine view. The cervical, thoracic and lumbar spines are covered in their entirety. choroid plexi are visualized (best on cine view), and are unremarkable. Lateral ventricles are poorly visualized on static and cine imaging for which follow-up is needed. The falx is visualized (on cine view) and is continuous. The cerebellum is visualized measuring 19.6 mm. The cisterna magna measures 2.8 mm in anterior to posterior dimension (normal measurement is 2 to 10 mm). The nuchal fold measures 4.5 mm (greater than 6 mm is considered abnormal). The four-chamber heart is visualized on static imaging and is anatomic. The right ventricular outflow tract is visualized on cine view and is anatomic. The left ventricular outflow tract is poorly visualized (despite multiple attempts secondary to fe catalina positioning) for which follow-up is needed. Limited views of the arms, hands, legs and feet were performed and appear grossly unremarkable. Limited evaluation of the upper lip and nose to confirm their continuity is appreciated on the subm itted static and cine images for which follow-up examination is needed. The following biometric data were obtained: Biparietal diameter (BPD): 4.5 cm; head circumference (HC): 17.3 cm; abdominal circumference (AC): 14.2 cm; femur length (FL): 3.2 cm. These measurements are concordant. Estimated weight is 307 g +/- 46 g, which correlates with the 61st percentile when 08/12/2025 i s used as estimated date of delivery. As single measurements, these parameters are each equal to the following estimated gestational ages: BPD: 19 weeks 4 days. HC: 19 weeks 6 days. AC: 19 weeks 4 days. FL: 19 weeks 6 days. estimated gestational age based solely on measurements from this exam is 19 weeks 5 days +/- 1 week 3 days. IMPRESSION: Single intrauterine gestation with an approximate gestational age of 19 weeks and 5 days. Estimated d ue date by ultrasound is 08/12/2025. Lateral ventricles are poorly visualized on static and cine imaging for which follow-up is needed. Limited evaluation of the upper lip and nose to confirm their continuity is appreciated on the subm itted static and cine images for which follow-up examination is needed. The left ventricular outflow tract is poorly visualized (despite multiple attempts secondary to fe catalina positioning) for which follow-up is needed. Remainder of the anatomy scan is within normal limits, as detailed above. Reviewed, dictated and finalized at location A. IMPRESSION: Single intrauterine gestation with an approximate gestational age of 19 weeks a nd 5 days. Estimated due date by ultrasound is 08/12/2025. Lateral ventricles are poorly visualized on static and cine imaging for whic h follow-up is needed. Limited evaluation of the upper lip and nose to confirm their continuity is a ppreciated on the submitted static and cine images for which follow-up examinat ion is needed. The left ventricular outflow tract is poorly visualized (despite multiple at tempts secondary to positioning) for which follow-up is needed. Remainder of the anatomy scan is within normal limits, as detailed above.
== END 2025-03-23 15:02 | disposition home or self-care (01) ==
LOC: MICIMG 15:01
PROVIDERS: PCP Student in an Organized Health Care Education/Training Program; Visit Provider Obstetrics & Gynecology
DX: Z34.90 Encounter for supervision of normal pregnancy, unspecified, unspecified trimester (principal)
CPT/HCPCS: 76805

== ENCOUNTER 2025-05-18 11:03 | Outpatient (CLI) | payer OTHER, SELFPAY ==
--- OUTSIDE RECORDS SUMMARY | 2025-05-18 12:19 | XMS_ITS | Clinical Summary ---
Author Organization [facility] Address [address] [place] [address] Care Team Providers Care Ell Tutor Name Role Phone Magaly Ribeiro CHRISTOPHER-FIELD SCOUT Primary Care Provider [phone] Source Comments [facility],non-owned Affiliates and Associated Physician Practices is amultiple site organization consisting of ambulatory clinics and hospital sitesin [place], [place], [place] and [place]. This disclosure is being madepursuant to the Care Everywhere program and may not contain all information available regarding this patient. Last updated 18.[facility] Allergies No known active allergies Encounters Date Type Department Care Team Description 05/05/2025 3:11 PM CDT - 05/05/2025 11:59 PM CDT Hospital Encounter [facility] [address] [place] [phone] Marek Donald MD Discharge Disposition: Home or Self Care 04/06/2025 7:29 AM CDT - 04/06/2025 11:59 PM CDT Hospital Encounter [facility] [address] [place] [id number] Marek Donald MD Discharge Disposition: Home or Self Care 04/06/2025 Travel from Last 3 Months Social History Tobacco Use Types Packs/Day Years Used Date Smoking Tobacco: Never Assessed Estimated Date of Delivery Comme nts Yes 08/15/2025 Based on last me nstrual period of 11/08/2024 Sex and Gender Information Value Date Recorded Sex Assigned at Not on file Legal Sex Female 3:56 PM CDT Gender Identity Not on file Sexual Orientation Not on file Plan of Treatment Health Maintenance Due Date Last Done Comments HIV SCREENING 2013 HPV VACCINE (1 - 3-dose series) 2013 HEPATITIS C SCREENING 08/02/2016 DTAP/TDAP/TD VACCINES (1 - Tdap) 2017 HEPATITIS B VACCINE (1 of 3 - 19+ 3-dose series) 2017 PAP SMEAR 2019 COVID-19 VACCINE (4 - 2023- season) 2024 10/04/2021, 10/26/2020, 09/28/2020 DEPRESSION SCREENING 10/01/2024 OB-ONE HOUR GLUCOSE 05/09/2025 OB-TDAP CURRENT 05/16/2025 04/17/2013 OB-RHOGAM INJECTION 05/23/2025 INFLUENZA VACCINE (#1) 2025 , 07/05/2023, 07/04/2021, Additional history exists Respiratory Syncytial Virus (RSV) Vaccine Pt: or over 60 yrs (1 - Risk 1-dose series) 06/20/2025 ZOSTER VACCINE (1 of 2) 2048 HIB VACCINE Aged Out No longer eligi ble based on patient's age to complete this topic MENINGOCOCCAL (Group B) VACCINE SHARED DECISION-MAKING Aged Out No longer eligible based on patient's age to complete this topic MENINGOCOCCAL GROUPS A/C/Y/W VACCINE Aged Out No longer eligible based on patient's age to complete this topic PNEUMOCOCCAL VACCINE Aged Out No long er eligible based on patient's age to complete this topic Procedures Procedure Name Priority Date/Time Associated Diagnosis Comments SONOGRAM - COMPLETE Routine 05/05/2025 3 :35 PM CDT 25 weeks gestation of (HCC) Encounter for follow-up ultrasound of anatomy (HCC) Encounter for ultrasound to assess growth (HCC) SONOGRAM - COMPLETE Routine 04/06/2025 7 :34 AM CDT Encounter for anatomic survey (HCC) 21 weeks gestation of (HCC) from Last 3 Months Results * Sonogram - Complete (05/05/2025 3:35 PM CDT) Only the most recent of2 resultswithin the time period is included. Linked Results Indication ======== Incomplete anatomy History ====== OB History 2. Para 0 A1L0 1. miscarriage 08/2024 Maternal Assessment Physical Exam Height 183 cm, 6 ft 0 in. Weight 82 kg, 181 lb. Initial weight 75 kg, 165 lb. BMI 24.55 kg/m . Initial BMI 22.38 kg/m . Weight gain 7 kg, 16 lb Method ====== Transabdominal ultrasound, Transabdominal ultrasound. View: Sufficient ========= [place] . Number of fetuses: 1 Dating ====== Date Details Gest. age GUNNAR LMP 11/08/2024 25 w + 3 d 08/15/2025 Stated GUNNAR 25 w + 3 d 08/15/2025 U/S 05/05/2025 based upon AC, BPD, Femur, HC 26 w + 1 d 08/10/2025 Assigned dating based on the LMP, selected on 04/06/2025 25 w + 3 d 08/15/2025 General Evaluation Cardiac activity present. FHR 150 bpm. Presentation: cephalic Placenta: Placental site: posterior Umbilical cord: Cord vessels: 3 vessel cord - previously documented. Insertion site: normal insertion - previously documented Amniotic fluid: Amount of AF: normal. MVP 6.2 cm Biometry BPD 65.6 mm 26w 3d 77% Hadlock HC 238.5 mm 25w 6d 44% Hadlock AC 212.1 mm 25w 5d 51% Hadlock Femur 48.8 mm 26w 3d 67% Hadlock Humerus 44.6 mm 26w 3d 76% Isabel HC / AC 1.12 Weight Calculation: EFW 883 g 65% Hadlock EFW (lb,oz) 1 lb 15 oz EFW by Hadlock ([id number]) appropriate Growth Overview Exam date GA BPD (mm) HC (mm) AC (mm) FL (mm) HL (mm) EFW (g) 04/06/2025 21w 2d 49.8 40% 187.7 31% 174.3 77% 36.6 53% 36.2 86% 460 75% 05/05/2025 25w 3d 65.6 77% 238.5 44% 212.1 51% 48.8 67% 44.6 76% 883 65% Anatomy The following structures appear normal: Heart / Thorax 4-chamber view. Aortic arch view. Bicaval view. Right lung. Left lung. Abdomen Stomach. Kidneys. Bladder. Extremities / Skeleton Hands. Left hand. The following structures were documented previously: Head / Neck Cranium. Lateral ventricles. Choroid plexus. Midline falx. Cavum septi pellucidi. Cerebellum. Cisterna magna. Thalami. Nuchal fold. Face Lips. Profile. Nose. Nasal bone. Orbits. Heart / Thorax RVOT view. LVOT view. 3-vessel view. 3-vtkwnv-nijvclp view. Situs. Ductal arch view. Great vessels. Diaphragm. Abdomen Cord insertion. Bowel. Genitals. Spine Cervical spine. Thoracic spine. Lumbar spine. Sacral spine. Extremities / Skeleton Arms. Right hand. Legs. Feet. sex: male. Impression ========= Single, live, intrauterine at 25w 3d The size is appropriate. The amniotic fluid volume is normal. anatomy evaluation is now complete No major malformations were seen within the limitations of ultrasound Comment ======== ultrasound alone cannot detect all structural, genetic, or functional , placental, or maternal abnormalities, ultrasound alone cannot detect all structural, genetic, or functional , placental, or maternal abnormalities Follow-up ======== Follow up as clinically indicated Coding ====== Procedures [id number]: US Preg Uterus Follow Up [facility] PACS Anatomical Region Laterality Modality Other 05/05/2025 3:35 PM CDT Chanel Maldonado MD [facility] ORDERABLES Edited Result - Final from Last 3 Months Insurance [employer] Care Teams Ell Tutor Relationship Specialty Start Date End Date Magaly Ribeiro, BREAD ROOM HAND-FIELD SCOUT [address] [place] [address] [place] [address] PCP - General Nurse Practitioner Family 04/06/25
[2025-05-18 12:47] LABS: Hematocrit 36.8 % (37.0-47.0); Hemoglobin 12.6 g/dL (12.0-15.0); Mean Corpuscular HGB Conc 34.2 g/dl (32-36); Mean Corpuscular Hemoglobin 30.7 pg (26-34); Mean Corpuscular Volume 89.5 fl (80-100); Platelet Count Result 176 k/mm3 (150-375); Red Blood Count 4.11 M/mm3 (4.2-5.4); White Blood Count 10.2 K/mm3 (4.5-10.0)
[2025-05-18 13:04] LABS: Glucose 1 Hour PP 50gm Dose 105 mg/dL
[2025-05-18 13:33] LABS: Syphilis IgG/IgM Antibody Non-Reactive (Nonreactive)
[2025-05-18 13:47] LABS: HIV 1/2 Ab P24 Ag Result Negative (Negative)
== END 2025-05-18 11:04 | disposition home or self-care (01) ==
LOC: ANHLAB 11:04
PROVIDERS: PCP Nurse Practitioner Family; Visit Provider Student in an Organized Health Care Education/Training Program
DX: Z34.90 Encounter for supervision of normal pregnancy, unspecified, unspecified trimester (principal)
CPT/HCPCS: 36415; 82947; 85027; 86593; 86703; G0432

== ENCOUNTER 2025-06-24 15:24 | Outpatient (CLI) | payer OTHER, SELFPAY ==
[2025-06-24] VITALS (12 sets, daily range): BP systolic 119–135; BP diastolic 77–91; PULSE 83–106; O2SAT 97–99; BMI 27.5
[2025-06-24 16:02] LABS: Hematocrit 35.5 % (37.0-47.0); Hemoglobin 12.1 g/dL (12.0-15.0); Immature Granulocyte Percent A 1.8 % (0-0.5); Lymphocytes Absolute Auto 1.65 K/mm3 (0.9-3.2); Mean Corpuscular HGB Conc 34.1 g/dl (32-36); Mean Corpuscular Hemoglobin 30.1 pg (26-34); Mean Corpuscular Volume 88.3 fl (80-100); Nucleated Red Blood Cells Absolute Auto 0.000 K/mm3 (0.0-0.012); Nucleated Red Blood Cells Perc 0.0 % (0.0-0.2); Platelet Count Result 178 k/mm3 (150-375); Red Blood Count 4.02 M/mm3 (4.2-5.4); White Blood Count 12.1 K/mm3 (4.5-10.0)
[2025-06-24 16:11] LABS: Add Urine Microscopic? YES; Alanine Aminotransferase 19 U/L (6-35); Albumin Level 3.7 g/dL (3.5-5.1); Alkaline Phosphatase 118 U/L (38-126); Anion Gap 7 mmol/L (4-12); Appearance Urine Clear (Clear); Aspartate Amino Transferase 31 U/L (14-36); Bilirubin,Total 0.9 mg/dL (0.2-1.3); Blood Urea Nitrogen 6 mg/dL (7-17); Calcium 8.7 mg/dL (8.4-10.2); Carbon Dioxide 20 mmol/L (22-30); Chloride 105 mmol/L (98-107); Estimated Glomerular Filt Rate > 60; Glucose 83 mg/dL (65-110); Glucose Urine UA Negative (Negative); Leukocyte Esterase Ur Trace LEU/UL (Negative); Nitrate Urine Negative (Negative); Non Pathogenic Casts 0-2; Potassium 3.6 mmol/L (3.4-5.0); Sodium 132 mmol/L (137-145); Specific Grav Ur 1.008 (1.001-1.035); Total Protein 6.8 g/dL (6.3-8.2); Uric Acid 3.7 mg/dL (2.5-7.5)
[2025-06-24 16:12] LABS: Total Protein Urine Random 10 mg/dL; Ur Ttl Prot Creatinine Ratio 0.26 mg/mg (0-0.20)
== END 2025-06-24 16:30 | disposition home or self-care (01) ==
LOC: ANHOBOP 15:31 → ANHOBPP 15:32
PROVIDERS: PCP Nurse Practitioner Family; Visit Provider Student in an Organized Health Care Education/Training Program
DX: O16.9 Unspecified maternal hypertension, unspecified trimester (principal)
CPT/HCPCS: 36415; 59025; 80053; 81001; 82570; 84156; 84550; 85025; 99199

== ENCOUNTER 2025-08-09 11:43 | Inpatient (IN) | payer OTHER, SELFPAY ==
[2025-08-09] VITALS (139 sets, daily range): BP systolic 121–155; BP diastolic 69–109; PULSE 70–129; RESP 16; TEMP 36.3–37.1; O2SAT 97–100
[2025-08-09 13:39] LABS: Hematocrit 38.1 % (37.0-47.0); Hemoglobin 12.9 g/dL (12.0-15.0); Immature Granulocyte Percent A 0.7 % (0-0.5); Lymphocytes Absolute Auto 1.56 K/mm3 (0.9-3.2); Mean Corpuscular HGB Conc 33.9 g/dl (32-36); Mean Corpuscular Hemoglobin 29.8 pg (26-34); Mean Corpuscular Volume 88.0 fl (80-100); Nucleated Red Blood Cells Absolute Auto 0.000 K/mm3 (0.0-0.012); Nucleated Red Blood Cells Perc 0.0 % (0.0-0.2); Platelet Count Result 190 k/mm3 (150-375); Red Blood Count 4.33 M/mm3 (4.2-5.4); White Blood Count 13.9 K/mm3 (4.5-10.0)
[2025-08-09 14:10] LABS: Alanine Aminotransferase 19 U/L (6-35); Albumin Level 3.9 g/dL (3.5-5.1); Alkaline Phosphatase 209 U/L (38-126); Anion Gap 7 mmol/L (4-12); Aspartate Amino Transferase 32 U/L (14-36); Bilirubin,Total 0.9 mg/dL (0.2-1.3); Blood Urea Nitrogen 7 mg/dL (7-17); Calcium 9.1 mg/dL (8.4-10.2); Carbon Dioxide 18 mmol/L (22-30); Chloride 107 mmol/L (98-107); Estimated Glomerular Filt Rate > 60; Glucose 79 mg/dL (65-110); Potassium 3.9 mmol/L (3.4-5.0); Sodium 132 mmol/L (137-145); Total Protein 7.0 g/dL (6.3-8.2); Uric Acid 5.4 mg/dL (2.5-7.5)
[2025-08-09] MEDS: fentaNYL CITRATE INJ (*CRX) 100 MCG/2 ML VIAL IV PUSH (14:44)
[2025-08-09] MEDS: ONDANSETRON INJ 4 MG/2 ML VIAL IV PUSH (14:58)
[2025-08-09 15:13] LABS: Syphilis IgG/IgM Antibody Non-Reactive (Nonreactive)
--- NOTE | 2025-08-09 15:59 | WPDANESEPPF ---
Anes - Initial Pre Proc Eval Date/Time: 08/09/25 15:59 Surgeon: Ibrahima Bal MD Pre Op Diagnosis: Labor Patient Data Age: 25 Gender: F Height: Weight: Last Vital Signs Pulse 103 H 08/09/25 15:55 BP 139/93 H 08/09/25 15:55 Pulse Ox 100 08/09/25 15:57 Allergies Allergy/AdvReac Type Severity Reaction Status Date / Time No Known Allergies Allergy Verified 08/06/25 15:09 Home Medications ?Medication ?Instructions ?Recorded ?Confirmed ?Type azelaic acid 15 % topical gel 1 applic topical 01/05/25 07/06/25 History clindamycin phosphate 1 % topical topical 01/05/25 07/06/25 History gel vits no.126-ferrous fum tablet PO 01/05/25 07/06/25 History 28 mg iron-folic acid 800 mcg tablet (Classic ) ondansetron HCl 4 mg tablet 4 mg PO Q6H PRN nausea and 02/02/25 07/21/25 Rx vomiting #30 tabs omeprazole 20 mg capsule,delayed 20 mg PO DAILY #30 caps 06/08/25 07/21/25 Rx release Laboratory Tests 08/09/25 08/09/25 13:30 13:31 WBC 13.9 H K/mm3 (4.5-10.0) RBC 4.33 M/mm3 (4.2-5.4) Hgb 12.9 g/dL (12.0-15.0) Hct 38.1 % (37.0-47.0) MCV 88.0 fl (80-100) MCH 29.8 pg (26-34) MCHC 33.9 g/dl (32-36) RDW 13.2 % (11.5-14.5) Plt Count 190 k/mm3 (150-375) MPV 12.0 H fl (7.4-10.4) Immature Gran % (Auto) 0.7 H % (0-0.5) Neut % (Auto) 81.8 H % (45.5-73.1) Lymph % (Auto) 11.2 L % (18.3-44.2) [place] % (Auto) 5.8 % (2.6-8.5) Eos % (Auto) 0.1 % (0-4.4) Baso % (Auto) 0.4 % (0.2-1.2) Lymph # (Auto) 1.56 K/mm3 (0.9-3.2) [place] # (Auto) 0.8 H K/mm3 (0.1-0.6) Eos # (Auto) 0.0 K/mm3 (0-0.3) Baso # (Auto) 0.1 K/mm3 (0.0-0.1) Abs Immat Gran (auto) 0.10 H K/mm3 (0.00-0.031) Absolute Neuts (auto) 11.4 H K/mm3 (1.3-6.7) Absolute Nucleated RBC 0.000 K/mm3 (0.0-0.012) Nucleated RBC % 0.0 % (0.0-0.2) Sodium 132 L mmol/L (137-145) Potassium 3.9 mmol/L (3.4-5.0) Chloride 107 mmol/L (98-107) Carbon Dioxide 18 L mmol/L (22-30) Anion Gap 7 mmol/L (4-12) BUN 7 mg/dL (7-17) Creatinine 0.63 L mg/dL (0.7-1.0) Estim Creat Clear Calc Not Reportable Estimated GFR > 60 (59 - ) Glucose 79 mg/dL (65-110) Uric Acid 5.4 mg/dL (2.5-7.5) Calcium 9.1 mg/dL (8.4-10.2) Total Bilirubin 0.9 mg/dL (0.2-1.3) AST 32 U/L (14-36) ALT 19 U/L (6-35) Alkaline Phosphatase 209 H U/L (38-126) Total Protein 7.0 g/dL (6.3-8.2) Albumin 3.9 g/dL (3.5-5.1) Syphilis IgG/IgM Ab Non-reactive (Nonreactive) Blood Type O Positive Antibody Screen Negative Patient hx anesthesia problems: none Family hx anesthesia problems: none Results Review: All pre-operative results and documents have been reviewed as part of the pre-operative evaluation. [facility] Surgical History Surgical History H/O dilation and curettage 09/12/24 MAB Family History Family History Father Diabetes mellitus Hypertension Mother Diabetes mellitus Hypertension Grandparent Diabetes mellitus Heart disease Hypertension Social History Social History Smoking status: Never smoker Alcohol intake: never Substance use: never Substance use type: does not use Do You Feel Safe in your Home?: Yes Lack of Transportation: No Lack of Food: Never True Current Housing: I Have Housing Concerned About Future Housing: No Difficulty Paying Gas/Electric Bills: No Difficulty Paying for Meds: No Currently Unemployed: No Education: Bachelor's Degree Difficulty w/ Childcare or Family Care: No Living arrangements: with family Occupation/Education: occupation Gender identity (if verbalized by the patient): Female Sexual Orientation (if Verbalized by the Patient): Straight or Heterosexual Spiritual care concerns: No Anes - Eval Final PreProcedure Day of Procedure 08/09/25 15:59 Patient weight: obese Heart: regular rate and rhythm Lungs: clear to auscultation Neurological: alert and oriented ASA classification: II Emergent: no Anesthetic plan: proceed Anesthesia type and monitoring: regional epidural and standard monitoring Results Review: All pre-operative results and documents have been reviewed as part of the pre-operative evaluation. Informed Consent: The patient's anesthetic plan and its attendant risks and benefits were discussed with the patient/family/POA. Questions were solicited and answers provided to the satisfaction of the patient/family/POA.
--- NOTE | 2025-08-09 18:26 | LDADM ---
This patient, Evelyn Munoz, was admitted to Labor/Delivery/Recovery 105 on 08/09/25 at 11:43. Plans for labor, pain management and were discussed with patient. Patient/family oriented to hospital policies and general routines including ID bracelet, bed and alarms, visiting hours, pain management, procedures, bathroom and other care routines, personal items, smoking policy, room service/diet and guest tray routines, infant security routines, and visiting hours. Patient/Family are encouraged to report perceived risks to care and to ask questions if they do not understand what they are told or what they should do. See OBIX for further documentation.
[2025-08-09 18:47] LABS: OBXCEM ROM Plus Negative (Negative)
[2025-08-09] MEDS: OXYTOCIN 30 UNITS/NS 500 ML 30 UNITS/500 ML BAG 999 UNITS IV CONT (21:02)
--- NOTE | 2025-08-09 21:25 | P.PCNOB_ITS ---
OB - Vaginal Delivery Note Procedure Delivery date: 08/09/25 Induction method: None Delivery augmentation: Rupture of Membranes Delivery monitor: External FHT and External Uterine Route of delivery: Episiotomy description: None Laceration Description: Perineal - 2nd Degree and Labial (Right) Delivery repair: vicryl Specimen: No Quantitative Blood Loss (ml): 150 Anesthesia type: Epidural Disposition: Floor Complications: No immediate complications Narrative: Patient pushed for a spontaneous vaginal delivery. The fetus was delivered atraumatically and placed on the maternal abdomen. The cord was clamped and cut after 1 minute of life. The cord was double clamped and cut and a segment of cord was collected for cord gases. Cord blood was collected for blood type and Coomb's testing. The placenta delivered spontaneously and was noted to be intact. The perineum was inspected and a 2nd degree perineal laceration was noted. The laceration was repaired with 3-0 vicryl in a running fashion. A right labial laceration was also noted and re-approximated with 30-0 vicryl. The fundus was noted to be firm and good hemostasis was noted. The mom and were stable in the delivery room. [place] Baby Date of : 08/09/25 Time of : 21:00 Gestational Age by Date: 39 Infant gender: Male presentation: vertex position: Right Occiput Anterior Placenta delivery description: Spontaneous Cord Vessel Description: 3 Vessels
[2025-08-09] MEDS: OXYTOCIN 30 UNITS/NS 500 ML 30 UNITS/500 ML BAG 125 UNITS IV CONT (21:48)
[2025-08-09] MEDS: IBUPROFEN 600 MG TABLET PO (23:00)
--- NOTE | 2025-08-10 00:11 | OBPPTRN ---
Patient and infant transferred to post room #113 via wheelchair. Support person present. Oriented to unit, room, information board, rooming in, admission packet and security measures. Patient verbalizes understanding.
[2025-08-10] MEDS: ACETAMINOPHEN 325 MG TABLET 650 MG PO ×4 (02:19→22:57)
[2025-08-10 04:05] VITALS: BP 113/69; PULSE 80; RESP 16; TEMP 36.6; O2SAT 99
[2025-08-10 04:21] LABS: Hematocrit 31.6 % (37.0-47.0); Hemoglobin 10.6 g/dL (12.0-15.0)
[2025-08-10 07:50] VITALS: BP 138/83; PULSE 79; RESP 16; TEMP 36.8; O2SAT 98
[2025-08-10] MEDS: MULTIVIT/MIN/PREN/FOL AC/IRON TABLET 1 TAB PO (09:30)
[2025-08-10] MEDS: IBUPROFEN 600 MG TABLET PO ×3 (09:55→22:57)
--- NOTE | 2025-08-10 12:15 | PC.NURSE ---
Introductions were made, then consulted with patient to assess needs related to . Discussed with mother her?plans to feed?her and the?experience so far. She feels like feedings are going well and that baby is alert and active at feeding times. She has some nipple soreness. We reviewed latch on tenderness in the first week versus an incorrect and painful latch that needs to be adjusted. Resources provided for inpatient and outpatient services with the feeding sheet, mom/baby guide and name written on the communication board. Mother voiced understanding of information and will call if there is a request for assistance. Reported to the Primary RN.
[2025-08-10 12:40] VITALS: BP 141/93; PULSE 76; RESP 18; TEMP 36.5; O2SAT 99
--- NOTE | 2025-08-10 13:23 | P.PNOB_ITS ---
OB - PN: Subj Subjective Date/time seen: 08/10/25 13:23 Patient comments: no complaints, pain well controlled and tolerating diet feeding status: exclusively breast feeding Narrative: patient doing well this AM. No complaints. Pain is well controlled. She reports minimal bleeding. She is ambulating and voiding without difficulty. She is tolerating PO. She denies N/V, fever, chills. OB - PN: Obj Data Labs 08/10/25 04:13 08/09/25 13:30 Labs: Laboratory Results - last 24 hr 08/09/25 08/09/25 08/09/25 12:28 13:30 13:31 WBC 13.9 H RBC 4.33 Hgb 12.9 Hct 38.1 MCV 88.0 MCH 29.8 MCHC 33.9 RDW 13.2 Plt Count 190 MPV 12.0 H Immature Gran % (Auto) 0.7 H Neut % (Auto) 81.8 H Lymph % (Auto) 11.2 L [place] % (Auto) 5.8 Eos % (Auto) 0.1 Baso % (Auto) 0.4 Lymph # (Auto) 1.56 [place] # (Auto) 0.8 H Eos # (Auto) 0.0 Baso # (Auto) 0.1 Abs Immat Gran (auto) 0.10 H Absolute Neuts (auto) 11.4 H Absolute Nucleated RBC 0.000 Nucleated RBC % 0.0 Sodium 132 L Potassium 3.9 Chloride 107 Carbon Dioxide 18 L Anion Gap 7 BUN 7 Creatinine 0.63 L Estim Creat Clear Calc Not Reportable Estimated GFR > 60 Glucose 79 Uric Acid 5.4 Calcium 9.1 Total Bilirubin 0.9 AST 32 ALT 19 Alkaline Phosphatase 209 H Total Protein 7.0 Albumin 3.9 Membranes Rupture Rom plus negative Syphilis IgG/IgM Ab Non-reactive Blood Type O Positive Antibody Screen Negative 08/10/25 04:13 WBC RBC Hgb 10.6 L Hct 31.6 L MCV MCH MCHC RDW Plt Count MPV Immature Gran % (Auto) Neut % (Auto) Lymph % (Auto) [place] % (Auto) Eos % (Auto) Baso % (Auto) Lymph # (Auto) [place] # (Auto) Eos # (Auto) Baso # (Auto) Abs Immat Gran (auto) Absolute Neuts (auto) Absolute Nucleated RBC Nucleated RBC % Sodium Potassium Chloride Carbon Dioxide Anion Gap BUN Creatinine Estim Creat Clear Calc Estimated GFR Glucose Uric Acid Calcium Total Bilirubin AST ALT Alkaline Phosphatase Total Protein Albumin Membranes Rupture Syphilis IgG/IgM Ab Blood Type Antibody Screen OB - PN A/P Plan day: 1 Plan: routine care Comments: patient doing well H/H stable desires infant circumcision. risks, benefits, alternatives discussed continue routine care Time Spent With Patient Time: Total time spent is greater than 50% in coordination of care (as documented) at patient's floor/unit and/or counseling patient: Time with patient: less than 15 minutes Review of Systems 2 Review of Systems: All systems reviewed & are unremarkable except as noted in HPI and below Exam 2 Const: General: comfortable and no acute distress Resp: Effort & Inspection: normal respiratory effort Cardio: Rate: regular rate GI: GI Palp: Yes Soft to palpation and No Tenderness to palpation present (GI) Auscultation: normal bowel sounds Other: fundus firm and below umbilicus. Psych: Affect: normal affect
--- NOTE | 2025-08-10 14:08 | WPDANLDPN2 ---
Anes-Prog Note L&D Date/Time: 08/10/25 14:08 Comfortable throughout: labor and delivery Neuraxial method: epidural Epidural/Spinal procedure site: clean & non-tender Neuro status: Neuro function grossly intact. Vital Signs: Last Vital Signs Temp 36.5 C 08/10/25 12:40 Pulse 76 08/10/25 12:40 Resp 18 08/10/25 12:40 BP 141/93 H 08/10/25 12:40 Pulse Ox 99 08/10/25 12:40 O2 Del Method Room Air 08/09/25 23:52 Pain score (VAS): 0 I/O: Intake & Output 08/09/25 08/10/25 08/10/25 23:59 07:59 15:59 Output Total 150 Balance -150 Patient feedback: Patient satisfied with anesthetic care.
[2025-08-10 15:58] VITALS: BP 122/83; PULSE 81; RESP 16; TEMP 36.8; O2SAT 99
[2025-08-10 19:50] VITALS: BP 131/92; PULSE 89; RESP 16; TEMP 36.8; O2SAT 99
[2025-08-11] MEDS: IBUPROFEN 600 MG TABLET PO ×2 (04:29→11:54)
[2025-08-11] MEDS: ACETAMINOPHEN 325 MG TABLET 650 MG PO ×2 (04:29→11:53)
[2025-08-11] MEDS: WITCH HAZEL 40 PADS 1 PAD TOPICAL (04:35)
--- NOTE | 2025-08-11 06:25 | P.DS_ITS ---
DS: Admitting Diagnosis Discharge Date 08/11/25 Admitting Diagnosis intrauterine at term DS: Discharge Diagnosis Discharge Diagnosis (1) Normal vaginal delivery: Code(s): O80 - Encounter for full-term uncomplicated delivery Status: Acute OB - DS: Summary OB Procedures : None OB Procedures Intrapartum: Spontaneous Vag Delivery OB Procedures: : None Peripartum Data Laceration Description: Perineal - 2nd Degree and Labial (Right) Episiotomy description: None Status at Discharge Functional status at discharge: independent ambulation Overall status at discharge: patient is back to baseline Time Spent with Patient Time attestation: Total time spent providing and/or coordinating discharge services: Time spent: Less than 30 minutes Exam Const: General: comfortable and no acute distress Resp: Effort & Inspection: normal respiratory effort Auscultation: clear to auscultation bilaterally Cardio: Rate: regular rate GI: GI Palp: Yes Soft to palpation Auscultation: normal bowel sounds Other: Fundus firm below umbilicus Psych: Appearance: grossly normal Mental Status: mental status grossly normal Affect: normal affect Discharge Plan Discharge Discharging Clinician: Ibrahima Bal Patient Disposition: Home Activity: as tolerated and pelvic rest Diet: regular Patient Instructions: Antibiotic Form, Vaginal Delivery (DC) Patient Language: Maldivian Stand Alone Forms: General Discharge Information Follow-up/Referrals: Ibrahima Bal MD [Physician, [employer]] Discharge Medications: New ibuprofen 600 mg tablet 600 mg PO Q6H PRN (Reason: pain) Qty: 30 0RF acetaminophen 500 mg tablet 500 mg PO Q6H PRN (Reason: pain) Qty: 30 0RF Continued ondansetron HCl 4 mg tablet 4 mg PO Q6H PRN (Reason: nausea and vomiting) Qty: 30 1RF clindamycin phosphate 1 % gel topical azelaic acid 15 % gel 1 applic topical Classic 28 mg iron- 800 mcg tablet PO omeprazole 20 mg capsule,delayed release(DR/EC) 20 mg PO DAILY Qty: 30 1RF Date of admission: 08/09/25 11:43 Primary Care Provider: CaleMagaly Admitting Provider: Ibrahima Bal Attending physician on admission: Ibrahima Bal Condition: Stable
[2025-08-11] MEDS: MULTIVIT/MIN/PREN/FOL AC/IRON TABLET 1 TAB PO (07:35)
[2025-08-11 08:00] VITALS: BP 126/83; PULSE 90; RESP 16; TEMP 37; O2SAT 97
--- NOTE | 2025-08-11 08:30 | PC.NURSE ---
Met with patient regarding painful latch. She states that the nurse yesterday told her the latch was 'wrong' but mom is unsure how to adjust. She uses her pillow to bring baby to the level of her right breast in cross cradle hold. Baby was turned with his belly to the ceiling and mom was shown how to observe baby for appropriate alignment and positioning. Baby turned tummy to tummy and ear shoulder and hip in a line. Mom latched baby with a wide gape but baby was shallow and mom states it feels painful. Mom shown how to break suction and baby is brought away from the breast. We waited for him to root and gape and then brought him quickly into the compressed breast 'sandwich'. Mom states this latch feels comfortable and we observed how baby had his nose on the breast but is able to breathe well. We looked at his lips for flanging and mom is advised to hold him tight to the breast throughout the feeding. While baby nurses, we reviewed her Spectra breast pump and measured her for flange sizing. She measures at 22mm so it is recommended she start with the 24mm flange. She is encouraged to try the larger (or smaller if needed) size if there is any pain or pinching with the 24mm flange. We reviewed when to start pumping, settings and duration, how to store breast milk, and how to offer a bottle for the first time once is well established. Baby nursed while we talked and mom states that the latch was still feeling comfortable. She is encouraged to call out for another latch check prior to discharge today. Patient feels more confident to go home and initiating pumping when she is ready. The Mom/Baby guide was used for reference and the primary RN was updated.
--- NOTE | 2025-08-11 10:05 | PC.NURSE ---
Patient viewed the discharge video Mother & Baby Care, The First Two Weeks. Patient was given the opportunity and encouraged to ask questions. Patient verbalized understanding of information shared and has been given the mother/baby guide for home reference.
[2025-08-12 10:23] VITALS: BP 127/82; PULSE 79; RESP 18; TEMP 36.8; O2SAT 99
== END 2025-08-11 12:57 | disposition home or self-care (01) | DRG 807 ==
LOC: ANHLDR 12:25 → ANHOBPP 08-10 05:08 → ANHOB2 08-10 07:05
PROVIDERS: Admitting Provider Student in an Organized Health Care Education/Training Program; PCP Nurse Practitioner Family; Visit Provider Student in an Organized Health Care Education/Training Program
DX: O70.1 Second degree perineal laceration during delivery (principal); Z37.0 Single live birth; Z3A.39 39 weeks gestation of pregnancy
CPT/HCPCS: 36415; 80053; 84112; 84550; 85014; 85018; 85025; 86593; 86850; 86900; 86901; A9270; J2405; J2590; J2795; J3010

== ENCOUNTER 2025-08-14 15:11 | Outpatient (CLI) | payer OTHER, SELFPAY ==
[2025-08-14] VITALS (9 sets, daily range): BP systolic 128–147; BP diastolic 91–106; PULSE 68–82
[2025-08-14] MEDS: ACETAMINOPHEN 500 MG TABLET 1000 MG PO (15:42)
[2025-08-14] MEDS: IBUPROFEN 600 MG TABLET PO (15:43)
[2025-08-14 15:53] LABS: Hematocrit 31.6 % (37.0-47.0); Hemoglobin 10.4 g/dL (12.0-15.0); Immature Granulocyte Percent A 0.7 % (0-0.5); Lymphocytes Absolute Auto 1.70 K/mm3 (0.9-3.2); Mean Corpuscular HGB Conc 32.9 g/dl (32-36); Mean Corpuscular Hemoglobin 30.2 pg (26-34); Mean Corpuscular Volume 91.9 fl (80-100); Nucleated Red Blood Cells Absolute Auto 0.000 K/mm3 (0.0-0.012); Nucleated Red Blood Cells Perc 0.0 % (0.0-0.2); Platelet Count Result 186 k/mm3 (150-375); Red Blood Count 3.44 M/mm3 (4.2-5.4); White Blood Count 10.0 K/mm3 (4.5-10.0)
[2025-08-14 16:04] LABS: Alanine Aminotransferase 30 U/L (6-35); Albumin Level 3.6 g/dL (3.5-5.1); Alkaline Phosphatase 125 U/L (38-126); Anion Gap 6 mmol/L (4-12); Aspartate Amino Transferase 39 U/L (14-36); Bilirubin,Total 0.7 mg/dL (0.2-1.3); Blood Urea Nitrogen 7 mg/dL (7-17); Calcium 9.0 mg/dL (8.4-10.2); Carbon Dioxide 23 mmol/L (22-30); Chloride 107 mmol/L (98-107); Estimated Glomerular Filt Rate > 60; Glucose 86 mg/dL (65-110); Potassium 3.8 mmol/L (3.4-5.0); Sodium 136 mmol/L (137-145); Total Protein 6.6 g/dL (6.3-8.2); Uric Acid 4.7 mg/dL (2.5-7.5)
--- NOTE | 2025-08-14 16:32 | PM.OBTRLD ---
OB - Triage/Final Diagnosis Visit Information Comments/Additional reasons for admission: I have assessed the risk for this patient, Evelyn Munoz, and determined that she would benefit from observation care. Evaluation Laboratory results: Laboratory Tests 08/14/25 15:37 WBC 10.0 RBC 3.44 L Hgb 10.4 L Hct 31.6 L MCV 91.9 MCH 30.2 MCHC 32.9 RDW 12.9 Plt Count 186 MPV 10.9 H Immature Gran % (Auto) 0.7 H Neut % (Auto) 73.4 H Lymph % (Auto) 17.0 L [place] % (Auto) 6.4 Eos % (Auto) 2.0 Baso % (Auto) 0.5 Lymph # (Auto) 1.70 [place] # (Auto) 0.6 Eos # (Auto) 0.2 Baso # (Auto) 0.1 Abs Immat Gran (auto) 0.07 H Absolute Neuts (auto) 7.4 H Absolute Nucleated RBC 0.000 Nucleated RBC % 0.0 Sodium 136 L Potassium 3.8 Chloride 107 Carbon Dioxide 23 Anion Gap 6 BUN 7 Creatinine 0.64 L Estim Creat Clear Calc Not Reportable Estimated GFR > 60 Glucose 86 Uric Acid 4.7 Calcium 9.0 Total Bilirubin 0.7 AST 39 H ALT 30 Alkaline Phosphatase 125 Total Protein 6.6 Albumin 3.6 Vital signs: Vital Signs - 24 hr 08/14/25 15:42 08/14/25 16:00 08/14/25 16:15 Pulse Rate 81 81 69 Blood Pressure 147/106 H 146/99 H 139/93 H Blood Pressure [Right Arm] 08/14/25 16:22 08/14/25 16:30 Pulse Rate 72 Blood Pressure 141/97 H Blood Pressure [Right Arm] 147/106 H Final Diagnosis (1) Hypertension affecting : Code(s): O16.9 - Unspecified maternal hypertension, unspecified trimester Status: Acute
--- NOTE | 2025-08-14 17:34 | PC.NURSE ---
Dr. Joel solomon with pt going home. Script sent to the pharmacy for pt to take daily. Return precautions given to the pt. Pt to schedule follow up appt next week in the office.
== END 2025-08-14 17:47 | disposition home or self-care (01) ==
LOC: ANHOBOP 15:15 → ANHOBPP 15:15
PROVIDERS: Obstetrics & Gynecology; PCP Nurse Practitioner Family; Visit Provider Student in an Organized Health Care Education/Training Program
DX: O16.9 Unspecified maternal hypertension, unspecified trimester (principal)
CPT/HCPCS: 36415; 80053; 84550; 85025; 99199; A9270